=== PATIENT | male | born 1980 | race American Indian/Alaskan Native ===

== ENCOUNTER 2020-10-02 22:53 | Inpatient (IN) | payer OTHER ==
[2020-10-02] MEDS ORDERED: ACETAMINOPHEN 500 MG TAB PO ONE (23:44)
[2020-10-02] MEDS ORDERED: SODIUM CHLORIDE 0.9% 1000 ML 1,000 ML IV ONE (23:45)
[2020-10-02] MEDS ORDERED: dexAMETHasone 20 MG/5 ML VIAL IV ONE (23:46)
[2020-10-02] MEDS ORDERED: ALBUTEROL 2.5 MG/3 ML NEBU IH ONE (23:46)
[2020-10-02] MEDS ORDERED: IPRATROPIUM 0.02% NEBU 2.5 ML IH ONE (23:46)
--- NOTE | 2020-10-02 23:54 | XRay Report ---
CHEST 1 VIEW 10/02/2020 10:45 PM INDICATION / CLINICAL INFORMATION: cough. COMPARISON: None available. FINDINGS: SUPPORT DEVICES: None. HEART / MEDIASTINUM: No significant abnormality. LUNGS / PLEURA: Moderate multifocal bilateral airspace disease No pneumothorax. ADDITIONAL FINDINGS: No significant additional findings. IMPRESSION: 1. Bilateral pneumonia Signer Name: Hosea Koenig MD Signed: 10/02/2020 11:50 PM Workstation Name: [id number]
[2020-10-03 00:03] LABS: Hematocrit 46.9 % (35.5-45.6); Hemoglobin 16.1 gm/dl (11.8-15.2); Mean Corpuscular HGB Conc 34 % (32-34); Mean Corpuscular Volume 90 fl (84-94); Platelet Count 254 K/mm3 (140-440); Red Cell Distribution Width 14.6 % (13.2-15.2)
[2020-10-03 00:20] LABS: Alanine Aminotransferase 36 units/L (7-56); Albumin 4.3 g/dL (3.9-5); BUN/Creatinine Ratio 8; Blood Urea Nitrogen 10 mg/dL (9-20); Calcium 8.8 mg/dL (8.4-10.2); Hemolysis Index 3
[2020-10-03] MEDS ORDERED: cefTRIAXone/NS 1 GM/50 ML 1 GM/50 ML BAG IV ONE (00:30)
[2020-10-03] MEDS ORDERED: AZITHROMYCIN/NS 500 MG/250 ML 500 MG/250 ML BAG IV ONE (00:30)
[2020-10-03] MEDS ORDERED: SODIUM CHLORIDE 0.9% 1000 ML 1,000 ML IV ONE (00:31)
--- NOTE | 2020-10-03 00:32 | Emergency Department Report ---
<RAISA CONWAYSHAHEED Allan - Last Filed: 10/03/20 00:52> ED Shortness of Breath HPI - General Chief Complaint: Dyspnea/Respdistress Stated Complaint: MILTON - Related Data Allergies Allergy/AdvReac Type Severity Reaction Status Date / Time No Known Allergies Allergy Unverified 10/02/20 23:18 ED Course - Reevaluation(s) Reevaluation #1: I reviewed the findings and management of this patient in real-time and I have personally seen and examined this patient and participated in the decision making for this patient with the midlevel. Patient is a 39-year-old male who presents emergency room with shortness of breath, cough fever. Patient found to be hypoxic. Patient had chest x-ray which shows bilateral pneumonia. Patient admitted to the hospitalist service. Patient is hypoxic on a nonrebreather. Patient then converted to BiPAP. I examined the patient. Patient's found to have increased work of breathing, retractions, shortness of breath, tachypnea. Normal S1 and S2 on CV exam. Abdominal exam is negative. Patient is alert and oriented x4. Patient agrees with plan of care. I discussed all results with patient. I discussed plan of care with patient. Patient agrees with plan of care and admission. Patient to be admitted to the hospitalist service. 10/03/20 00:52 - Consultations Consultation #1: Hospitalist consulted for admission. Hospitalist to admit patient. 10/03/20 00:54 ED Medical Decision Making - Lab Data Result diagrams: 10/02/20 23:36 10/02/20 23:36 - Radiology Data Radiology results: report reviewed, image reviewed interpreted by me: Chest x-ray: no pneumothorax, no foreign body, no osseous findings, bilateral pneumonia CHEST 1 VIEW 10/02/2020 10:45 PM INDICATION / CLINICAL INFORMATION: cough. COMPARISON: None available. FINDINGS: SUPPORT DEVICES: None. HEART / MEDIASTINUM: No significant abnormality. LUNGS / PLEURA: Moderate multifocal bilateral airspace disease No pneumothorax. ADDITIONAL FINDINGS: No significant additional findings. IMPRESSION: 1. Bilateral pneumonia - Medical Decision Making Critical care time documented due to the multiple reassessments, prolonged time at the bedside, interpretation of diagnostics and labs. - Differential Diagnosis Covid, PUI, pneumonia, hypoxia, Sob, respiratory failure Critical Care Time: Yes Critical care time in (mins) excluding proc time.: 35 Critical Care Time: 35 minutes ED Disposition Clinical Impression: SOB (shortness of breath), Person under investigation for COVID-19 Respiratory failure Qualifiers: Chronicity: acute Respiratory failure complication: hypoxia Qualified Code(s): J96.01 - Acute respiratory failure with hypoxia Pneumonia Qualifiers: Pneumonia type: due to unspecified organism Laterality: bilateral Lung location: unspecified part of lung Qualified Code(s): J18.9 - Pneumonia, unspecified organism Fever Qualifiers: Fever type: unspecified Qualified Code(s): R50.9 - Fever, unspecified Disposition: DC-09 OP ADMIT IP TO THIS HOSP Is pt being admited?: Yes Does the pt Need Aspirin: No Condition: Stable Instructions: Bacterial Pneumonia (ED) Time of Disposition: 00:55 <TANG BENITEZ - Last Filed: 10/03/20 01:10> ED Shortness of Breath HPI - General Source: patient Mode of arrival: Ambulatory Limitations: No Limitations - History of Present Illness Initial Comments: Patient is a 39-year-old -Ni[place] male with a history of chronic heavy tobacco abuse, asthma, hypertension and obesity who presents to the ED with complaint of acute onset persistent nasal and sinus congestion, persistent dry cough with wheezing, shortness of breath and chest tightness for the last 1 week, worse in the last 2 days. Patient admits to smoking up to 1 pack a day or more of cigarettes. Patient states that although he is asthmatic, he has not used any bronchodilators in the last 3 years. Patient also complains of diffuse body aches and pains, lack of appetite and generalized weakness, fever and chills. Patient denies dizziness, syncope, abdominal pain, nausea, vomiting, diarrhea, dysuria, urinary frequency and urgency, sore throat, testicular pain or hematuria. MD Complaint: shortness of breath, cough, chest pain -: Sudden, week(s) (1) Radiation: right arm, left arm Severity: severe Pain Scale: 8 Quality: aching, sharp Consistency: constant Improves With: nothing Worsens With: nothing Known History Of: asthma Context: recent URI, medication noncompliance, other (Heavy tobacco abuse) Associated Symptoms: chest pain, fever, cough, diaphoresis Treatments Prior to Arrival: none - Related Data Home Oxygen Therapy: No ED Review of Systems ROS: Stated complaint: MILTON Other details as noted in HPI Constitutional: chills, fever, malaise Eyes: denies: eye pain, eye discharge, vision change ENT: congestion Respiratory: cough, shortness of breath, wheezing Cardiovascular: chest pain (chest tightness). denies: palpitations Endocrine: no symptoms reported Gastrointestinal: denies: abdominal pain, nausea, diarrhea Genitourinary: denies: urgency, dysuria Musculoskeletal: arthralgia, myalgia. denies: back pain, joint swelling Skin: denies: rash, lesions Neurological: headache. denies: weakness, paresthesias Psychiatric: denies: anxiety, depression Hematological/Lymphatic: denies: easy bleeding, easy bruising ED Past Medical Hx - Past Medical History Previous Medical History?: Yes Hx Hypertension: Yes Hx Asthma: Yes Additional medical history: Obesity - Surgical History Past Surgical History?: No Hx Pacemaker: No - Social History Smoking Status: Current Every Day Smoker Substance Use Type: None ED Physical Exam - General Limitations: No Limitations General appearance: alert, in no apparent distress, anxious - Head Head exam: Present: atraumatic, normocephalic, normal inspection - Eye Eye exam: Present: normal appearance, PERRL, EOMI. Absent: scleral icterus, conjunctival injection, nystagmus, periorbital swelling, periorbital tenderness - ENT ENT exam: Present: normal orophraynx, mucous membranes moist, TM's normal bilaterally, normal external ear exam, other (Grossly congested nasal passages) - Neck Neck exam: Present: normal inspection, full ROM - Respiratory Respiratory exam: Present: respiratory distress, wheezes (Diffuse coarse wheezes throughout with bilateral rhonchi, and use of accessory muscles), rales, rhonchi, accessory muscle use. Absent: chest wall tenderness, decreased breath sounds - Cardiovascular Cardiovascular Exam: Present: normal rhythm, tachycardia, normal heart sounds. Absent: systolic murmur, diastolic murmur, rubs, gallop - GI/Abdominal GI/Abdominal exam: Present: soft, normal bowel sounds. Absent: tenderness, guarding, rebound, hyperactive bowel sounds, hypoactive bowel sounds, or ganomegaly - Extremities Exam Extremities exam: Present: normal inspection, full ROM, normal capillary refill - Back Exam Back exam: Present: normal inspection, full ROM. Absent: CVA tenderness (L), muscle spasm, paraspinal tenderness, vertebral tenderness - Neurological Exam Neurological exam: Present: alert, oriented X3, CN II-XII intact, normal gait, reflexes normal - Psychiatric Psychiatric exam: Present: normal affect, normal mood - Skin Skin exam: Present: warm, dry, intact, normal color. Absent: rash ED Course Vital Signs 10/02/20 23:20 Temperature 100.1 F H Pulse Rate 101 H Respiratory 20 Rate Blood Pressure 153/93 [Left] O2 Sat by Pulse 88 Oximetry ED Medical Decision Making - Lab Data Result diagrams: 10/02/20 23:36 10/02/20 23:36 - Medical Decision Making This is a 39-year-old -[place] male with a history of chronic heavy tobacco abuse, asthma, hypertension and obesity who presents to the ED with complaint of acute onset persistent nasal and sinus congestion, persistent dry cough with wheezing, shortness of breath and chest tightness for the last 1 week, worse in the last 2 days. Patient admits to smoking up to 1 pack a day or more of cigarettes. Patient states that although he is asthmatic, he has not used any bronchodilators in the last 3 years. Patient also complains of diffuse body aches and pains, lack of appetite and generalized weakness, fever and chills. In the ED, patient is alert and oriented x3 and is in respiratory distress with oxygen saturation of 88% in room air, febrile and tachycardic in triage. Patient was treated in the ED with albuterol 7.5 mg and ipratropium 1 mg, Decadron 10 mg IV x1, also placed on nonrebreather oxygen, Tylenol, normal saline 2 L IV x1. Chest x-ray shows bilateral pneumonia. Lab test results were reviewed and showed acute leukocytosis of 20,400 and elevated AST of 67. The rest of the lab test results are nonactionable. Blood cultures were collected, and thereafter patient was started on antibiotics Rocephin 1 g IV x1 and azithromycin 500 mg IV x1. Patient's case was discussed with the ED attending physician Dr. Roblero who also evaluated the patient and agreed with the plan of care. Dr. Roblero discussed the patient's case with the hospitalist physician on-call Dr. Walter who admitted the patient to the hospital for further evaluation. Critical care attestation.: If time is entered above; I have spent that time in minutes in the direct care of this critically ill patient, excluding procedure time.
[2020-10-03 01:00] LABS: Band Neutrophils # (Manual) 2.6 K/mm3; Total Cells Counted 100
[2020-10-03 01:02] LABS: Giant Platelets Rare
[2020-10-03 01:18] LABS: Ovalocytes Rare; Platelet Estimate Consistent w Auto
[2020-10-03 01:22] LABS: C-Reactive Protein 5.6 mg/dL (0.00-1.30)
--- NOTE | 2020-10-03 01:29 | History and Physical Report ---
History of Present Illness Date of examination: 10/03/20 Date of admission: 10/03/20 00:51 Chief complaint: Shortness of breath History of present illness: Patient is a 39-year-old -[place]onegas[place] male with a history of chronic heavy tobacco abuse, asthma, hypertension and obesity who presents to the ED with complaint of acute onset persistent nasal and sinus congestion, persistent dry cough with wheezing, shortness of breath and chest tightness for the last 1 w [place], worse in the last 2 days. Patient admits to smoking up to 1 pack a day or more of cigarettes. Patient states that although he is asthmatic, he has not used any bronchodilators in the last 3 years. Patient also complains of diffuse body aches and pains, lack of appetite and generalized weakness, fever and chills. Patient denies dizziness, syncope, abdominal pain, nausea, vomiting, diarrhea, dysuria, urinary frequency and urgency, sore throat, testicular pain or hematuria. ED work-up shows WBC 28.4, hemoglobin 16.1, platelet 254 D-dimer 963.03 Sodium 138 potassium 4.3, creatinine 1.2, glucose 116, calcium 8.8, troponin negative Chest x-ray shows bilateral pneumonia. Patient seen in ED at bedside. Patient reported history of shortness of breath and was checked for Covid infection but no results was given to him. Patient is on oxygen by facemask oxygen saturation 9394. Patient reports shortness of breath that is ongoing not relieved by any remedies. Reviewed lab, medication r ecord, and vital signs. D-dimer is elevated and CT of the chest to rule out PE ordered. Past History Past Medical History: hypertension Past Surgical History: No surgical history Social history: no significant social history Family history: hypertension Medications and Allergies Allergies Allergy/AdvReac Type Severity Reaction Status Date / Time No Known Allergies Allergy Unverified 10/02/20 23:18 Active Meds: Active Medications Azithromycin (Zithromax/Ns) 500 mg in 250 mls @ 250 mls/hr IV ONCE ONE; Protocol Stop: 10/03/20 01:29 Sodium Chloride (Nacl 0.9% 1000 Ml) 1,000 mls @ 999 mls/hr IV BOLUS ONE Stop: 10/03/20 01:31 Review of Systems Constitutional: fever, chills, weakness, malaise Ears, nose, mouth and throat: no epistaxis Cardiovascular: high blood pressure, no chest pain Respiratory: shortness of breath Gastrointestinal: no melena Rectal: no itching Musculoskeletal: no neck stiffness Integumentary: no rash, no pruritis Neurological: head injury Psychiatric: anxiety Endocrine: high blood sugars Hematologic/Lymphatic: no easy bruising, no easy bleeding Allergic/Immunologic: no urticaria Exam - Constitutional Vitals: Temp Pulse Resp BP Pulse Ox 100.1 F H 101 H 20 153/93 88 10/02/20 23:20 10/02/20 23:20 10/02/20 23:20 10/02/20 23:20 10/02/20 23:20 General appearance: Present: severe distress, obese - EENT Eyes: Present: PERRL ENT: hearing intact, clear oral mucosa - Neck Neck: Present: supple, normal ROM - Respiratory Respiratory effort: normal Respiratory: bilateral: diminished - Cardiovascular Heart rate: 101 Heart Sounds: Present: S1 & S2. Absent: rub, click - Extremities Extremities: pulses symmetrical, No edema Peripheral Pulses: within normal limits - Abdominal General gastrointestinal: Present: soft, non-tender, non-distended, normal bowel sounds Male genitourinary: Present: normal - Integumentary Integumentary: Present: clear, warm, dry - Musculoskeletal Musculoskeletal: gait normal, strength equal bilaterally - Psychiatric Psychiatric: appropriate mood/affect, intact judgment & insight, cooperative - Neurologic Neurologic: CNII-XII intact, moves all extremities - Allied Health Allied health notes reviewed: nursing HEART Score - HEART Score Troponin: Troponin T < 0.010 ng/mL (0.00-0.029) 10/02/20 23:55 Results - Labs CBC & Chem 7: 10/02/20 23:36 10/02/20 23:55 Labs: Abnormal lab results 10/02/20 10/02/20 10/02/20 Range/Units 23:36 23:36 23:55 WBC 28.4 H (4.5-11.0) K/mm3 RBC 5.20 H (3.65-5.03) M/mm3 Hgb 16.1 H (11.8-15.2) gm/dl Hct 46.9 H (35.5-45.6) % Seg Neuts % (Manual) 82.0 H (40.0-70.0) % Lymphocytes % (Manual) 6.0 L (13.4-35.0) % Seg Neutrophils # Man 23.3 H (1.8-7.7) K/mm3 Monocytes # (Manual) 0.9 H (0.0-0.8) K/mm3 D-Dimer 963.03 H (0-234) ng/mlDDU Carbon Dioxide 21 L (22-30) mmol/L Glucose 116 H (75-100) mg/dL Total Bilirubin 1.70 H (0.1-1.2) mg/dL AST 67 H (5-40) units/L Lactate Dehydrogenase (91-180) units/L C-Reactive Protein (0.00-1.30) mg/dL 10/02/20 Range/Units 23:55 WBC (4.5-11.0) K/mm3 RBC (3.65-5.03) M/mm3 Hgb (11.8-15.2) gm/dl Hct (35.5-45.6) % Seg Neuts % (Manual) (40.0-70.0) % Lymphocytes % (Manual) (13.4-35.0) % Seg Neutrophils # Man (1.8-7.7) K/mm3 Monocytes # (Manual) (0.0-0.8) K/mm3 D-Dimer (0-234) ng/mlDDU Carbon Dioxide (22-30) mmol/L Glucose 105 H (75-100) mg/dL Total Bilirubin (0.1-1.2) mg/dL AST (5-40) units/L Lactate Dehydrogenase 554 H (91-180) units/L C-Reactive Protein 5.60 H (0.00-1.30) mg/dL Assessment and Plan - Patient Problems (1) Person under investigation for COVID-19 Current Visit: Yes Status: Acute Plan to address problem: Covid test ordered result pending D-dimer and other inflammatory markers elevated Advised on use of incentive spirometer and prone position Bronchodilator and supplemental oxygen. (2) Pneumonia Current Visit: Yes Status: Acute Qualifiers: Pneumonia type: due to unspecified organism Laterality: bilateral Lung location: unspecified part of lung Qualified Code(s): J18.9 - Pneumonia, unspecified organism Plan to address problem: Chest x-ray positive for bilateral pneumonia Antibiotic with Rocephin and azithromycin Blood culture follow-up with results Easter Bunny consulted Continue bronchodilator and oxygen supplements ABG as needed (3) Acute respiratory failure with hypoxia Current Visit: Yes Status: Acute Plan to address problem: Continue oxygen supplements. BiPAP if needed and bronchodilator as needed Easter Bunny consulted (4) Elevated d-dimer Current Visit: Yes Status: Acute Plan to address problem: CTA of the chest r/o PE Bilateral leg US (5) Fever Current Visit: Yes Status: Acute Qualifiers: Fever type: unspecified Qualified Code(s): R50.9 - Fever, unspecified Plan to address problem: Leucocytosis Continue antibiotic PRN tylenol (6) Sepsis Current Visit: Yes Status: Acute Plan to address problem: Possible 2/2 to bacterial/viral PNA leucocytosis and lactic acidosis Continue Iv hydration Continue antibiotic Monitor WBC and lactic acids levels ID consulted-blood culture ordered. (7) DVT prophylaxis Current Visit: Yes Status: Acute Plan to address problem: lovenox
[2020-10-03] MEDS ORDERED: SENNOSIDES 8.6 MG TAB PO PRN (01:56)
[2020-10-03] MEDS ORDERED: ONDANSETRON 4 MG/2 ML INJ IV PRN (01:56)
[2020-10-03] MEDS ORDERED: ALUM-MAG HYDROXIDE-SIMETHICONE 200-200-20MG/5ML ORAL LIQD 30 ML PO PRN (01:56)
[2020-10-03] MEDS ORDERED: IPRATROPIUM/ALBUTEROL SULFATE 3 ML AMPUL.NEB IH ONE ×2 (02:30→02:31)
--- NOTE | 2020-10-03 03:19 | Cat Scan Report ---
CTA CHEST WITH IV CONTRAST INDICATION: Shortness of breath. TECHNIQUE: Axial CT images were obtained through the chest after injection of 100 cc IV contrast. 3 plane MIP re constructions were produced. All CT scans at this location are performed using CT dose reduction for ALARA by means of automated exposure control. COMPARISON: None available. FINDINGS: PULMONARY ARTERIES: No pulmonary emboli. THORACIC AORTA: No acute abnormality. HEART: Normal. CORONARY ARTERIES: No significant calcification. PLEURA: No pleural effusion. No pneumothorax. LYMPH NODES: No significant adenopathy. LUNGS: Extensive patchy bilateral airspace consolidation ADDITIONAL FINDINGS: None. UPPER ABDOMEN: 3.4 cm right and 4.2 cm left hypodense adrenal nodules both diagnostic for adenomas SKELETAL STRUCTURES: No significant osseous abnormality. IMPRESSION: 1. No CT evidence for pulmonary embolism. 2. Severe bilateral pneumonia 3. Bilateral hypodense adrenal nodules are diagnostic for adenomas. Signer Name: Hosea Koenig MD Signed: 10/03/2020 3:14 AM Workstation Name: [id number]
[2020-10-03] MEDS: SODIUM CHLORIDE 0.9% 1000 ML 1,000 ML IV SCH ×2 (07:23→21:30)
[2020-10-03 08:30] LABS: Bilirubin,Urine NEG (Negative); Blood,Urine NEG (Negative); Color,Urine Yellow (Yellow); Mucus,Urine FEW /HPF; Protein,Urine <15 mg/dL mg/dL (Negative); Urobilinogen,Urine < 2.0 mg/dL (<2.0)
--- NOTE | 2020-10-03 10:39 | Consultation ---
History of Present Illness Reason for consult: dyspnea, asthma, pneumonia History of present illness: This is a 39 yo AAm w hx of asthma who comes in with body aches and sob. In the er he was noted to have bilateral pneumonia. He is presently on bipap. He is awake and reponsive. He has a hx of asthma for many years and smoke about 1 ppd. He has never been intubated and he is reportedly not on any asthma meds Past History Past Medical History: hypertension, other (asthma) Past Surgical History: No surgical history Social history: no significant social history, smoking Family history: hypertension Medications and Allergies Allergies Allergy/AdvReac Type Severity Reaction Status Date / Time No Known Allergies Allergy Unverified 10/02/20 23:18 Active Meds: Active Medications Acetaminophen (Acetaminophen 325 Mg Tab) 650 mg PO Q4H PRN PRN Reason: Fever >101 Al Hydrox/Mg Hydrox/Simethicone (Alum-Mag Hydroxide-Simethicone 043-214-63mq/5ml Oral Liqd 30 Ml) 15 ml PO Q4H PRN PRN Reason: Indigestion Albuterol (Albuterol 2.5 Mg/3 Ml Nebu) 2.5 mg IH Q4HRT PRN PRN Reason: Shortness Of Breath Enoxaparin Sodium (Enoxaparin 40 Mg/0.4 Ml Inj) 40 mg SUB-Q DAILY DEBORAH; Protocol Hydralazine HCl (Hydralazine 20 Mg/1 Ml Inj) 5 mg IV Q4H PRN PRN Reason: Hypertension Ceftriaxone Sodium (Rocephin/Ns 1 Gm/50 Ml) 1 gm in 50 mls @ 100 mls/hr IV Q24HR DEBORAH; Protocol Azithromycin (Zithromax/Ns) 500 mg in 250 mls @ 250 mls/hr IV Q24HR DEBORAH Sodium Chloride (Nacl 0.9% 1000 Ml) 1,000 mls @ 75 mls/hr IV DIRECT DEBORAH Last Admin: 10/03/20 07:23 Dose: 75 mls/hr Documented by: Ondansetron HCl (Ondansetron 4 Mg/2 Ml Inj) 4 mg IV Q4H PRN PRN Reason: Nausea And Vomiting Pneumococcal Polyvalent Vaccine (Pneumococcal 23 Valent 0.5 Ml Vial) 0.5 ml IM .ONCE ONE Stop: 10/03/20 11:01 Senna (Sennosides 8.6 Mg Tab) 8.6 mg PO Q12H PRN PRN Reason: Laxative Effect Tramadol HCl (Tramadol 50 Mg Tab) 50 mg PO Q4H PRN PRN Reason: Pain, Moderate (4-6) Trazodone HCl (Trazodone 50 Mg Tab) 50 mg PO QHS PRN PRN Reason: Insomnia Review of Systems Constitutional: weakness Respiratory: shortness of breath, other (asthma) Physical Examination Vital signs: Vital Signs Temp Pulse Resp BP Pulse Ox 100.1 F H 101 H 20 153/93 88 10/02/20 23:20 10/02/20 23:20 10/02/20 23:20 10/02/20 23:20 10/02/20 23:20 General appearance: alert, other (on bipap) ENT: oropharynx moist Neck: supple Effort: normal Ascultation: Bilateral: rhonchi Cardiovascular: regular rate and rhythm Gastrointestinal: normoactive bowel sounds, soft, non-tender, non-distended Integumentary: normal Extremities: no cyanosis Musculoskeletal: no deformities Gait: other (in icu on bipap) Results - Laboratory Findings CBC and BMP: 10/02/20 23:36 10/02/20 23:55 PT/INR, D-dimer D-Dimer 963.03 ng/mlDDU (0-234) H 10/02/20 23:55 Abnormal lab findings: Abnormal Labs 10/02/20 10/02/20 10/02/20 23:36 23:36 23:55 WBC 28.4 H RBC 5.20 H Hgb 16.1 H Hct 46.9 H Seg Neuts % (Manual) 82.0 H Lymphocytes % (Manual) 6.0 L Seg Neutrophils # Man 23.3 H Monocytes # (Manual) 0.9 H D-Dimer 963.03 H Carbon Dioxide 21 L Glucose 116 H Lactic Acid Ferritin Total Bilirubin 1.70 H AST 67 H Lactate Dehydrogenase C-Reactive Protein Ur Specific [place] 10/02/20 10/02/20 10/03/20 23:55 23:55 00:52 WBC RBC Hgb Hct Seg Neuts % (Manual) Lymphocytes % (Manual) Seg Neutrophils # Man Monocytes # (Manual) D-Dimer Carbon Dioxide Glucose 105 H Lactic Acid 3.10 H* Ferritin 349.5 H Total Bilirubin AST Lactate Dehydrogenase 554 H C-Reactive Protein 5.60 H Ur Specific [place] 10/03/20 07:50 WBC RBC Hgb Hct Seg Neuts % (Manual) Lymphocytes % (Manual) Seg Neutrophils # Man Monocytes # (Manual) D-Dimer Carbon Dioxide Glucose Lactic Acid Ferritin Total Bilirubin AST Lactate Dehydrogenase C-Reactive Protein Ur Specific [place] 1.034 H - Diagnostic Findings Chest x-ray: report reviewed, image reviewed (bilat alveolar infiltrates) CT scan - chest: report reviewed, image reviewed (bilat pneumonia) Assessment and Plan - Patient Problems (1) Acute respiratory failure with hypoxia Current Visit: Yes Status: Acute (2) Fever Current Visit: Yes Status: Acute Qualifiers: Fever type: unspecified Qualified Code(s): R50.9 - Fever, unspecified (3) Person under investigation for COVID-19 Current Visit: Yes Status: Acute (4) Pneumonia Current Visit: Yes Status: Acute Qualifiers: Pneumonia type: due to unspecified organism Laterality: bilateral Lung location: unspecified part of lung Qualified Code(s): J18.9 - Pneumonia, unspecified organism (5) Respiratory failure Current Visit: Yes Status: Acute Qualifiers: Chronicity: acute Respiratory failure complication: hypoxia Qualified Code(s): J96.01 - Acute respiratory failure with hypoxia (6) SOB (shortness of breath) Current Visit: Yes Status: Acute (7) Sepsis Current Visit: Yes Status: Acute
[2020-10-03] MEDS: cefTRIAXone/NS 1 GM/50 ML 1 GM/50 ML BAG IV SCH (10:45)
[2020-10-03] MEDS: ENOXAPARIN 40 MG/0.4 ML INJ SUB-Q SCH (10:45)
[2020-10-03] MEDS ORDERED: PNEUMOCOCCAL 23 Valent 0.5 ML VIAL IM ONE (11:00)
--- NOTE | 2020-10-03 11:42 | Progress Note ---
Assessment and Plan Assessment and plan: Acute hypoxic respiratory failure Bilateral pneumonia. Follow-up COVID-19 testing Acute asthma exacerbation Elevated D-dimer. CTA negative for PE Hypertension Tobacco abuse 10/03/2020. Continue IV antibiotics for now and follow-up procalcitonin. Add steroids for asthma exacerbation. Continue bronchodilators. Continue BiPAP / and FiO2 100%. Pulmonary and ID consultations pending. History Interval history: No new issues overnight. Hospitalist Physical - Constitutional Vitals: Temp Pulse Resp BP Pulse Ox 98.4 F 84 36 H 163/106 98 10/03/20 08:00 10/03/20 09:07 10/03/20 09:07 10/03/20 09:07 10/03/20 09:07 General appearance: Present: severe distress, obese - EENT Eyes: Present: PERRL, EOM intact ENT: hearing intact, clear oral mucosa, dentition normal - Neck Neck: Present: supple, normal ROM - Respiratory Respiratory effort: normal Respiratory: bilateral: CTA - Cardiovascular Rhythm: regular Heart Sounds: Present: S1 & S2. Absent: gallop, rub - Extremities Extremities: no ischemia, No edema, Full ROM - Abdominal General gastrointestinal: soft, non-tender, non-distended, normal bowel sounds - Integumentary Integumentary: Present: clear, warm, dry - Neurologic Neurologic: CNII-XII intact, moves all extremities HEART Score - HEART Score Troponin: Troponin T < 0.010 ng/mL (0.00-0.029) 10/02/20 23:55 Results - Labs CBC & Chem 7: 10/02/20 23:36 10/02/20 23:55 Labs: Laboratory Last Values WBC 28.4 K/mm3 (4.5-11.0) H 10/02/20 23:36 RBC 5.20 M/mm3 (3.65-5.03) H 10/02/20 23:36 Hgb 16.1 gm/dl (11.8-15.2) H 10/02/20 23:36 Hct 46.9 % (35.5-45.6) H 10/02/20 23:36 MCV 90 fl (84-94) 10/02/20 23:36 MCH 31 pg (28-32) 10/02/20 23:36 MCHC 34 % (32-34) 10/02/20 23:36 RDW 14.6 % (13.2-15.2) 10/02/20 23:36 Plt Count 254 K/mm3 (140-440) 10/02/20 23:36 Add Manual Diff Complete 10/02/20 23:36 Total Counted 100 10/02/20 23:36 Seg Neutrophils % [employer] 10/02/20 23:36 Seg Neuts % (Manual) 82.0 % (40.0-70.0) H 10/02/20 23:36 Band Neutrophils % 9.0 % 10/02/20 23:36 Lymphocytes % (Manual) 6.0 % (13.4-35.0) L 10/02/20 23:36 Monocytes % (Manual) 3.0 % (0.0-7.3) 10/02/20 23:36 Nucleated RBC % Not Reportable 10/02/20 23:36 Seg Neutrophils # Man 23.3 K/mm3 (1.8-7.7) H 10/02/20 23:36 Band Neutrophils # 2.6 K/mm3 10/02/20 23:36 Lymphocytes # (Manual) 1.7 K/mm3 (1.2-5.4) 10/02/20 23:36 Abs React Lymphs (Man) 0.0 K/mm3 10/02/20 23:36 Monocytes # (Manual) 0.9 K/mm3 (0.0-0.8) H 10/02/20 23:36 Eosinophils # (Manual) 0.0 K/mm3 (0.0-0.4) 10/02/20 23:36 Basophils # (Manual) 0.0 K/mm3 (0.0-0.1) 10/02/20 23:36 Metamyelocytes # 0.0 K/mm3 10/02/20 23:36 Myelocytes # 0.0 K/mm3 10/02/20 23:36 Promyelocytes # 0.0 K/mm3 10/02/20 23:36 Blast Cells # 0.0 K/mm3 10/02/20 23:36 WBC Morphology Not Reportable 10/02/20 23:36 Hypersegmented Neuts Not Reportable 10/02/20 23:36 Hyposegmented Neuts Not Reportable 10/02/20 23:36 Hypogranular Neuts Not Reportable 10/02/20 23:36 Smudge Cells Not Reportable 10/02/20 23:36 Toxic Granulation Not Reportable 10/02/20 23:36 Toxic Vacuolation Not Reportable 10/02/20 23:36 Dohle Bodies Not Reportable 10/02/20 23:36 Pelger-Huet Anomaly Not Reportable 10/02/20 23:36 [place] Rods Not Reportable 10/02/20 23:36 Platelet Estimate Consistent w auto 10/02/20 23:36 Clumped Platelets Not Reportable 10/02/20 23:36 Plt Clumps, EDTA Not Reportable 10/02/20 23:36 Large Platelets Not Reportable 10/02/20 23:36 Giant Platelets Rare 10/02/20 23:36 Platelet Satelliting Not Reportable 10/02/20 23:36 Plt Morphology Comment Not Reportable 10/02/20 23:36 RBC Morphology Not Reportable 10/02/20 23:36 Dimorphic RBCs Not Reportable 10/02/20 23:36 Polychromasia Rare 10/02/20 23:36 Hypochromasia Not Reportable 10/02/20 23:36 Poikilocytosis Not Reportable 10/02/20 23:36 Anisocytosis Not Reportable 10/02/20 23:36 Microcytosis Not Reportable 10/02/20 23:36 Macrocytosis Not Reportable 10/02/20 23:36 Spherocytes Not Reportable 10/02/20 23:36 Pappenheimer Bodies Not Reportable 10/02/20 23:36 Sickle Cells Not Reportable 10/02/20 23:36 Target Cells Not Reportable 10/02/20 23:36 Tear Drop Cells Not Reportable 10/02/20 23:36 Ovalocytes Rare 10/02/20 23:36 Helmet Cells Not Reportable 10/02/20 23:36 [place] Bodies Not Reportable 10/02/20 23:36 Azalea Rings Not Reportable 10/02/20 23:36 [place] Cells Not Reportable 10/02/20 23:36 Bite Cells Not Reportable 10/02/20 23:36 Crenated Cell Not Reportable 10/02/20 23:36 Elliptocytes Not Reportable 10/02/20 23:36 Acanthocytes (Spur) Not Reportable 10/02/20 23:36 Rouleaux Not Reportable 10/02/20 23:36 Hemoglobin C Crystals Not Reportable 10/02/20 23:36 Schistocytes Not Reportable 10/02/20 23:36 Malaria parasites Not Reportable 10/02/20 23:36 [place] Bodies Not Reportable 10/02/20 23:36 Hem Pathologist Commnt No 10/02/20 23:36 D-Dimer 963.03 ng/mlDDU (0-234) H 10/02/20 23:55 Sodium 138 mmol/L (137-145) 10/02/20 23:36 Potassium 4.3 mmol/L (3.6-5.0) 10/02/20 23:36 Chloride 102.6 mmol/L (98-107) 10/02/20 23:36 Carbon Dioxide 21 mmol/L (22-30) L 10/02/20 23:36 Anion Gap 19 mmol/L 10/02/20 23:36 BUN 10 mg/dL (9-20) 10/02/20 23:36 Creatinine 1.2 mg/dL (0.8-1.3) 10/02/20 23:36 Estimated GFR > 60 ml/min 10/02/20 23:36 BUN/Creatinine Ratio 8 % 10/02/20 23:36 Glucose 105 mg/dL (75-100) H 10/02/20 23:55 Lactic Acid 1.40 mmol/L (0.7-2.0) 10/03/20 05:34 Calcium 8.8 mg/dL (8.4-10.2) 10/02/20 23:36 Ferritin 349.5 ng/mL (30.0-300.0) H 10/02/20 23:55 Total Bilirubin 1.70 mg/dL (0.1-1.2) H 10/02/20 23:36 AST 67 units/L (5-40) H 10/02/20 23:36 ALT 36 units/L (7-56) 10/02/20 23:36 Alkaline Phosphatase 66 units/L (35-129) 10/02/20 23:36 Lactate Dehydrogenase 554 units/L (91-180) H 10/02/20 23:55 Troponin T < 0.010 ng/mL (0.00-0.029) 10/02/20 23:55 C-Reactive Protein 5.60 mg/dL (0.00-1.30) H 10/02/20 23:55 Total Protein 7.3 g/dL (6.3-8.2) 10/02/20 23:36 Albumin 4.3 g/dL (3.9-5) 10/02/20 23:36 Albumin/Globulin Ratio 1.4 % 10/02/20 23:36 Procalcitonin 1.14 ng/mL (<0.15) 10/02/20 23:55 Urine Color Yellow (Yellow) 10/03/20 07:50 Urine Turbidity Clear (Clear) 10/03/20 07:50 Urine pH 5.0 (5.0-7.0) 10/03/20 07:50 Ur Specific [place] 1.034 (1.003-1.030) H 10/03/20 07:50 Urine Protein <15 mg/dl mg/dL (Negative) 10/03/20 07:50 Urine Glucose (UA) Neg mg/dL (Negative) 10/03/20 07:50 Urine Ketones Tr mg/dL (Negative) 10/03/20 07:50 Urine Blood Neg (Negative) 10/03/20 07:50 Urine Nitrite Neg (Negative) 10/03/20 07:50 Urine Bilirubin Neg (Negative) 10/03/20 07:50 Urine Urobilinogen < 2.0 mg/dL (<2.0) 10/03/20 07:50 Ur Leukocyte Esterase Neg (Negative) 10/03/20 07:50 Urine WBC (Auto) 0.0 /HPF (0.0-6.0) 10/03/20 07:50 Urine RBC (Auto) 1.0 /HPF (0.0-6.0) 10/03/20 07:50 Urine Mucus Few /HPF 10/03/20 07:50 Microbiology: Microbiology 10/02/20 23:55 Peripheral/Venous Blood Culture - Preliminary Culture in Progress 10/03/20 00:12 Peripheral/Venous Blood Culture - Preliminary Culture in Progress Ruiz/IV: Voiding Method Urinal Active Medications - Current Medications Current Medications: Generic Name Dose Route Start Last Admin Trade Name Freq PRN Reason Stop Dose Admin Acetaminophen 650 mg 10/03/20 02:15 Acetaminophen 325 Mg Tab PO Q4H PRN Fever >101 Al Hydrox/Mg Hydrox/Simethicone 15 ml 10/03/20 01:56 Alum-Mag Hydroxide-Simethicone [id number]/5ml Oral Liqd 30 Ml PO Q4H PRN Indigestion Albuterol 2.5 mg 10/03/20 01:45 Albuterol 2.5 Mg/3 Ml Nebu IH Q4HRT PRN Shortness Of Breath Arformoterol Tartrate 15 mcg 10/03/20 11:00 Arformoterol 15 Mcg/2 Ml Nebu IH Q12HRT DEBORAH Budesonide 0.25 mg 10/03/20 11:00 Budesonide 0.25 Mg/2 Ml Nebu IH Q12HRT DEBORAH Enoxaparin Sodium 40 mg 10/03/20 10:00 10/03/20 10:45 Enoxaparin 40 Mg/0.4 Ml Inj SUB-Q 40 mg DAILY DEBORAH Administration Protocol Hydralazine HCl 5 mg 10/03/20 01:47 Hydralazine 20 Mg/1 Ml Inj IV Q4H PRN Hypertension Ceftriaxone Sodium 1 gm in 50 mls @ 100 mls/hr 10/03/20 10:00 10/03/20 10:45 Rocephin/Ns 1 Gm/50 Ml IV 100 mls/hr Q24HR DEBORAH Administration Protocol Azithromycin 500 mg in 250 mls @ 250 mls/hr 10/03/20 10:00 Zithromax/Ns IV Q24HR [facility] Sodium Chloride 1,000 mls @ 75 mls/hr 10/03/20 03:45 10/03/20 07:23 Nacl 0.9% 1000 Ml IV 75 mls/hr DIRECT DEBORAH Administration Ondansetron HCl 4 mg 10/03/20 01:56 Ondansetron 4 Mg/2 Ml Inj IV Q4H PRN Nausea And Vomiting Senna 8.6 mg 10/03/20 01:56 Sennosides 8.6 Mg Tab PO Q12H PRN Laxative Effect Tramadol HCl 50 mg 10/03/20 01:43 Tramadol 50 Mg Tab PO Q4H PRN Pain, Moderate (4-6) Trazodone HCl 50 mg 10/03/20 01:43 Trazodone 50 Mg Tab PO QHS PRN Insomnia
[2020-10-03] MEDS: AZITHROMYCIN/NS 500 MG/250 ML 500 MG/250 ML BAG IV SCH (13:46)
--- NOTE | 2020-10-03 15:29 | Vascular Lab Report ---
DUPLEX DOPPLER LOWER EXTREMITY VEINS, BILATERAL INDICATION: r/o dvt. Bilateral leg swelling shortness of breath TECHNIQUE: Duplex doppler imaging was performed through the veins of both lower extremities using venous johny hayder and other maneuvers. COMPARISON: None available. FINDINGS: Right Common Femoral vein: Negative. Right Superficial Femoral vein: Negative. Right Popliteal vein: Negative. Right Calf veins: Negative. Left Common Femoral vein: Negative. Left Superficial Femoral vein: Negative. Left Popliteal vein: Negative. Left Calf veins: Negative. Additional findings: None. IMPRESSION: 1. No sonographic evidence for DVT in either lower extremity. Signer Name: Ashley Perez MD Signed: 10/03/2020 3:24 PM Workstation Name: [id number]
[2020-10-03] MEDS: ARFORMOTEROL 15 MCG/2 ML NEBU IH SCH ×2 (17:43→21:26)
[2020-10-03] MEDS: BUDESONIDE 0.25 MG/2 ML NEBU IH SCH ×2 (17:44→21:25)
[2020-10-03] MEDS: ACETAMINOPHEN 325 MG TAB PO PRN (18:06)
[2020-10-03] MEDS: hydrALAZINE 20 MG/1 ML INJ IV PRN (18:07)
[2020-10-03] MEDS: traZODone 50 MG TAB PO PRN (21:23)
[2020-10-03] MEDS: traMADol 50 MG TAB PO PRN (21:23)
[2020-10-03] MEDS: LISINOPRIL 40 MG TAB PO SCH (21:23)
[2020-10-03] MEDS: ALBUTEROL 2.5 MG/3 ML NEBU IH PRN (21:25)
[2020-10-04] MEDS: guaiFENesin DM 200/20 MG ORAL LIQD 10 ML PO PRN ×3 (00:32→21:51)
[2020-10-04 06:33] LABS: Hematocrit 43.3 % (35.5-45.6); Hemoglobin 14.3 gm/dl (11.8-15.2); Mean Corpuscular HGB Conc 33 % (32-34); Mean Corpuscular Volume 92 fl (84-94); Platelet Count 219 K/mm3 (140-440); Red Blood Count 4.71 M/mm3 (3.65-5.03); Red Cell Distribution Width 15.1 % (13.2-15.2)
[2020-10-04 06:35] LABS: BUN/Creatinine Ratio 11; Blood Urea Nitrogen 11 mg/dL (9-20); Calcium 8.5 mg/dL (8.4-10.2); Hemolysis Index 9
[2020-10-04] MEDS: BUDESONIDE 0.25 MG/2 ML NEBU IH SCH (07:33)
[2020-10-04] MEDS: ARFORMOTEROL 15 MCG/2 ML NEBU IH SCH ×3 (07:34→11:15)
[2020-10-04 08:21] LABS: Total Cells Counted 100
[2020-10-04 08:26] LABS: Burr Cells Few; Platelet Estimate Consistent w Auto
[2020-10-04] MEDS: LISINOPRIL 40 MG TAB PO SCH ×2 (09:02→21:23)
[2020-10-04] MEDS: traMADol 50 MG TAB PO PRN ×2 (09:02→17:28)
[2020-10-04] MEDS: ENOXAPARIN 40 MG/0.4 ML INJ SUB-Q SCH (09:04)
[2020-10-04] MEDS: cefTRIAXone/NS 1 GM/50 ML 1 GM/50 ML BAG IV SCH (09:04)
[2020-10-04] MEDS ORDERED: methylPREDNISolone Sod Succinate 125 MG/2 ML INJ IV ONE (09:23)
--- NOTE | 2020-10-04 09:28 | Progress Note ---
Assessment and Plan - Patient Problems (1) Acute respiratory failure with hypoxia Current Visit: Yes Status: Acute (2) Fever Current Visit: Yes Status: Acute Qualifiers: Fever type: unspecified Qualified Code(s): R50.9 - Fever, unspecified (3) Person under investigation for COVID-19 Current Visit: Yes Status: Acute (4) Pneumonia Current Visit: Yes Status: Acute Qualifiers: Pneumonia type: due to unspecified organism Laterality: bilateral Lung location: unspecified part of lung Qualified Code(s): J18.9 - Pneumonia, unspecified organism (5) Respiratory failure Current Visit: Yes Status: Acute Qualifiers: Chronicity: acute Respiratory failure complication: hypoxia Qualified Code(s): J96.01 - Acute respiratory failure with hypoxia (6) SOB (shortness of breath) Current Visit: Yes Status: Acute (7) Sepsis Current Visit: Yes Status: Acute Subjective Interval history: awake and responsive on hiflo o2 episodes of blood streaked sputum feels better Objective Vital Signs - 12hr 10/03/20 10/03/20 10/03/20 21:30 21:33 22:00 Temperature Pulse Rate 95 H Pulse Rate [ 84 Bilateral Throughout] Pulse Rate [ From Monitor] Respiratory 29 H Rate Respiratory 26 H Rate [Bilateral Throughout] Respiratory 16 Rate [ Generalized] Blood Pressure 153/94 O2 Sat by Pulse 92 Oximetry 10/03/20 10/04/20 10/04/20 23:00 00:00 00:20 Temperature 98.2 F Pulse Rate 89 98 H Pulse Rate [ Bilateral Throughout] Pulse Rate [ From Monitor] Respiratory 29 H 34 H Rate Respiratory Rate [Bilateral Throughout] Respiratory Rate [ Generalized] Blood Pressure 142/83 142/90 O2 Sat by Pulse 94 87 95 Oximetry 10/04/20 10/04/20 10/04/20 01:00 02:00 02:40 Temperature Pulse Rate 102 H 101 H 90 Pulse Rate [ Bilateral Throughout] Pulse Rate [ From Monitor] Respiratory 20 12 Rate Respiratory Rate [Bilateral Throughout] Respiratory Rate [ Generalized] Blood Pressure 151/99 171/106 O2 Sat by Pulse 93 94 Oximetry 10/04/20 10/04/20 10/04/20 03:00 04:00 04:03 Temperature 98.2 F Pulse Rate 99 H 85 86 Pulse Rate [ Bilateral Throughout] Pulse Rate [ From Monitor] Respiratory 26 H 20 Rate Respiratory Rate [Bilateral Throughout] Respiratory Rate [ Generalized] Blood Pressure 168/88 148/84 O2 Sat by Pulse 96 91 Oximetry 10/04/20 10/04/20 10/04/20 05:00 06:00 07:00 Temperature Pulse Rate 81 89 83 Pulse Rate [ Bilateral Throughout] Pulse Rate [ 90 From Monitor] Respiratory 25 H 13 24 Rate Respiratory Rate [Bilateral Throughout] Respiratory Rate [ Generalized] Blood Pressure 141/89 141/89 171/92 O2 Sat by Pulse 91 96 Oximetry 10/04/20 10/04/20 10/04/20 07:34 07:35 08:00 Temperature 99.5 F Pulse Rate 86 Pulse Rate [ 81 Bilateral Throughout] Pulse Rate [ From Monitor] Respiratory 17 Rate Respiratory 23 Rate [Bilateral Throughout] Respiratory Rate [ Generalized] Blood Pressure 166/101 O2 Sat by Pulse 98 96 Oximetry 10/04/20 10/04/20 09:00 09:02 Temperature Pulse Rate 89 90 Pulse Rate [ Bilateral Throughout] Pulse Rate [ From Monitor] Respiratory 11 L 14 Rate Respiratory Rate [Bilateral Throughout] Respiratory Rate [ Generalized] Blood Pressure 166/94 166/94 O2 Sat by Pulse 93 Oximetry Constitutional: no acute distress, alert, other (on hiflo) ENT: oropharynx moist Neck: supple Effort: normal Ascultation: Bilateral: rhonchi Cardiovascular: regular rate and rhythm Gastrointestinal: normoactive bowel sounds, soft, non-tender, non-distended Integumentary: normal Extremities: no cyanosis CBC and BMP: 10/04/20 05:41 10/04/20 05:41 ABG, PT/INR, D-dimer: PT/INR, D-dimer D-Dimer 963.03 ng/mlDDU (0-234) H 10/02/20 23:55 Abnormal lab findings: Abnormal Labs 10/02/20 10/02/20 10/02/20 23:36 23:36 23:55 WBC 28.4 H RBC 5.20 H Hgb 16.1 H Hct 46.9 H Seg Neuts % (Manual) 82.0 H Lymphocytes % (Manual) 6.0 L Seg Neutrophils # Man 23.3 H Monocytes # (Manual) 0.9 H D-Dimer 963.03 H Chloride Carbon Dioxide 21 L Glucose 116 H Lactic Acid Ferritin Total Bilirubin 1.70 H AST 67 H Lactate Dehydrogenase C-Reactive Protein Ur Specific [place] 10/02/20 10/02/2010/03/21 23:55 23:55 00:52 WBC RBC Hgb Hct Seg Neuts % (Manual) Lymphocytes % (Manual) Seg Neutrophils # Man Monocytes # (Manual) D-Dimer Chloride Carbon Dioxide Glucose 105 H Lactic Acid 3.10 H* Ferritin 349.5 H Total Bilirubin AST Lactate Dehydrogenase 554 H C-Reactive Protein 5.60 H Ur Specific [place] 10/03/20 10/04/20 10/04/20 07:50 05:41 05:41 WBC 21.4 H RBC Hgb Hct Seg Neuts % (Manual) 83.0 H Lymphocytes % (Manual) 12.0 L Seg Neutrophils # Man 17.8 H Monocytes # (Manual) 1.1 H D-Dimer Chloride 107.6 H Carbon Dioxide Glucose 101 H Lactic Acid Ferritin Total Bilirubin AST Lactate Dehydrogenase C-Reactive Protein Ur Specific [place] 1.034 H
[2020-10-04] MEDS ORDERED: methylPREDNISolone Sod Succinate 125 MG/2 ML INJ IV NR (09:30)
--- NOTE | 2020-10-04 11:08 | Progress Note ---
Assessment and Plan Assessment and plan: Acute hypoxic respiratory failure Sepsis, POA. Bilateral pneumonia. COVID-19 testing negative Acute asthma exacerbation Elevated D-dimer. CTA negative for PE Hypertension Tobacco abuse 10/03/2020. Continue IV antibiotics for now and follow-up procalcitonin. Add steroids for asthma exacerbation. Continue bronchodilators. Continue BiPAP 12/6 and FiO2 100%. Pulmonary and ID consultations pending. 10/04/2020. Patient still with significant respiratory failure with etiology secondary to likely community-acquired pneumonia and acute asthma exacerbation. Covid testing negative. Start IV steroids and monitor closely. Continue IV antibiotics and follow-up chest x-ray in a.m. Patient counseled on tobacco cessation. Patient still requiring high flow nasal cannula 15 L/min. Continue to wean oxygen as tolerated. Patient will remain in IMCU due to high risk of decompensation given respiratory status. The high probability of a clinically significant, sudden or life threatening deterioration of the [respiratory] system(s) required my full and direct attention, intervention and personal management. The aggregate critical care time was [32] minutes. This time is in addition to time spent performing reported procedures but includes the following: [x] Data Review and interpretation [x] Patient assessment and monitoring of vital signs [x] Documentation [x] Medication orders and management History Interval history: No new issues overnight. Hospitalist Physical - Constitutional Vitals: Temp Pulse Resp BP Pulse Ox 99.5 F 90 14 166/94 93 10/04/20 08:00 10/04/20 09:02 10/04/20 09:02 10/04/20 09:02 10/04/20 09:00 General appearance: Present: severe distress, obese - EENT Eyes: Present: PERRL, EOM intact ENT: hearing intact, clear oral mucosa, dentition normal - Neck Neck: Present: supple, normal ROM - Respiratory Respiratory effort: normal Respiratory: bilateral: CTA - Cardiovascular Rhythm: regular Heart Sounds: Present: S1 & S2. Absent: gallop, rub - Extremities Extremities: no ischemia, No edema, Full ROM - Abdominal General gastrointestinal: soft, non-tender, non-distended, normal bowel sounds - Integumentary Integumentary: Present: clear, warm, dry - Neurologic Neurologic: CNII-XII intact, moves all extremities HEART Score - HEART Score Troponin: Troponin T < 0.010 ng/mL (0.00-0.029) 10/02/20 23:55 Results - Labs CBC & Chem 7: 10/04/20 05:41 10/04/20 05:41 Labs: Laboratory Last Values WBC 21.4 K/mm3 (4.5-11.0) H 10/04/20 05:41 RBC 4.71 M/mm3 (3.65-5.03) 10/04/20 05:41 Hgb 14.3 gm/dl (11.8-15.2) 10/04/20 05:41 Hct 43.3 % (35.5-45.6) 10/04/20 05:41 MCV 92 fl (84-94) 10/04/20 05:41 MCH 30 pg (28-32) 10/04/20 05:41 MCHC 33 % (32-34) 10/04/20 05:41 RDW 15.1 % (13.2-15.2) 10/04/20 05:41 Plt Count 219 K/mm3 (140-440) 10/04/20 05:41 Add Manual Diff Complete 10/04/20 05:41 Total Counted 100 10/04/20 05:41 Seg Neutrophils % Electrical Pl[employer] Supervisor 10/02/20 23:36 Seg Neuts % (Manual) 83.0 % (40.0-70.0) H 10/04/20 05:41 Band Neutrophils % 9.0 % 10/02/20 23:36 Lymphocytes % (Manual) 12.0 % (13.4-35.0) L 10/04/20 05:41 Monocytes % (Manual) 5.0 % (0.0-7.3) 10/04/20 05:41 Nucleated RBC % Not Reportable 10/04/20 05:41 Seg Neutrophils # Man 17.8 K/mm3 (1.8-7.7) H 10/04/20 05:41 Band Neutrophils # 0.0 K/mm3 10/04/20 05:41 Lymphocytes # (Manual) 2.6 K/mm3 (1.2-5.4) 10/04/20 05:41 Abs React Lymphs (Man) 0.0 K/mm3 10/04/20 05:41 Monocytes # (Manual) 1.1 K/mm3 (0.0-0.8) H 10/04/20 05:41 Eosinophils # (Manual) 0.0 K/mm3 (0.0-0.4) 10/04/20 05:41 Basophils # (Manual) 0.0 K/mm3 (0.0-0.1) 10/04/20 05:41 Metamyelocytes # 0.0 K/mm3 10/04/20 05:41 Myelocytes # 0.0 K/mm3 10/04/20 05:41 Promyelocytes # 0.0 K/mm3 10/04/20 05:41 Blast Cells # 0.0 K/mm3 10/04/20 05:41 WBC Morphology Not Reportable 10/04/20 05:41 Hypersegmented Neuts Not Reportable 10/04/20 05:41 Hyposegmented Neuts Not Reportable 10/04/20 05:41 Hypogranular Neuts Not Reportable 10/04/20 05:41 Smudge Cells Not Reportable 10/04/20 05:41 Toxic Granulation Not Reportable 10/04/20 05:41 Toxic Vacuolation Not Reportable 10/04/20 05:41 Dohle Bodies Not Reportable 10/04/20 05:41 Pelger-Huet Anomaly Not Reportable 10/04/20 05:41 [place] Rods Not Reportable 10/04/20 05:41 Platelet Estimate Consistent w auto 10/04/20 05:41 Clumped Platelets Not Reportable 10/04/20 05:41 Plt Clumps, EDTA Not Reportable 10/04/20 05:41 Large Platelets Not Reportable 10/04/20 05:41 Giant Platelets Not Reportable 10/04/20 05:41 Platelet Satelliting Not Reportable 10/04/20 05:41 Plt Morphology Comment Not Reportable 10/04/20 05:41 RBC Morphology Not Reportable 10/04/20 05:41 Dimorphic RBCs Not Reportable 10/04/20 05:41 Polychromasia Not Reportable 10/04/20 05:41 Hypochromasia Not Reportable 10/04/20 05:41 Poikilocytosis Not Reportable 10/04/20 05:41 Anisocytosis Not Reportable 10/04/20 05:41 Microcytosis Not Reportable 10/04/20 05:41 Macrocytosis Not Reportable 10/04/20 05:41 Spherocytes Not Reportable 10/04/20 05:41 Pappenheimer Bodies Not Reportable 10/04/20 05:41 Sickle Cells Not Reportable 10/04/20 05:41 Target Cells Not Reportable 10/04/20 05:41 Tear Drop Cells Not Reportable 10/04/20 05:41 Ovalocytes Not Reportable 10/04/20 05:41 Helmet Cells Not Reportable 10/04/20 05:41 [place] Bodies Not Reportable 10/04/20 05:41 [place] Rings Not Reportable 10/04/20 05:41 [place] Cells Few 10/04/20 05:41 Bite Cells Not Reportable 10/04/20 05:41 Crenated Cell Not Reportable 10/04/20 05:41 Elliptocytes Not Reportable 10/04/20 05:41 Acanthocytes (Spur) Not Reportable 10/04/20 05:41 Rouleaux Not Reportable 10/04/20 05:41 Hemoglobin C Crystals Not Reportable 10/04/20 05:41 Schistocytes Not Reportable 10/04/20 05:41 Malaria parasites Not Reportable 10/04/20 05:41 [place] Bodies Not Reportable 10/04/20 05:41 Hem Pathologist Commnt No 10/04/20 05:41 D-Dimer 963.03 ng/mlDDU (0-234) H 10/02/20 23:55 Sodium 141 mmol/L (137-145) 10/04/20 05:41 Potassium 4.6 mmol/L (3.6-5.0) 10/04/20 05:41 Chloride 107.6 mmol/L (98-107) H 10/04/20 05:41 Carbon Dioxide 24 mmol/L (22-30) 10/04/20 05:41 Anion Gap 14 mmol/L 10/04/20 05:41 BUN 11 mg/dL (9-20) 10/04/20 05:41 Creatinine 1.0 mg/dL (0.8-1.3) 10/04/20 05:41 Estimated GFR > 60 ml/min 10/04/20 05:41 BUN/Creatinine Ratio 11 % 10/04/20 05:41 Glucose 101 mg/dL (75-100) H 10/04/20 05:41 Lactic Acid 1.40 mmol/L (0.7-2.0) 10/03/20 05:34 Calcium 8.5 mg/dL (8.4-10.2) 10/04/20 05:41 Ferritin 349.5 ng/mL (30.0-300.0) H 10/02/20 23:55 Total Bilirubin 1.70 mg/dL (0.1-1.2) H 10/02/20 23:36 AST 67 units/L (5-40) H 10/02/20 23:36 ALT 36 units/L (7-56) 10/02/20 23:36 Alkaline Phosphatase 66 units/L (35-129) 10/02/20 23:36 Lactate Dehydrogenase 554 units/L (91-180) H 10/02/20 23:55 Troponin T < 0.010 ng/mL (0.00-0.029) 10/02/20 23:55 C-Reactive Protein 5.60 mg/dL (0.00-1.30) H 10/02/20 23:55 Total Protein 7.3 g/dL (6.3-8.2) 10/02/20 23:36 Albumin 4.3 g/dL (3.9-5) 10/02/20 23:36 Albumin/Globulin Ratio 1.4 % 10/02/20 23:36 Procalcitonin 1.14 ng/mL (<0.15) 10/02/20 23:55 Urine Color Yellow (Yellow) 10/03/20 07:50 Urine Turbidity Clear (Clear) 10/03/20 07:50 Urine pH 5.0 (5.0-7.0) 10/03/20 07:50 Ur Specific [place] 1.034 (1.003-1.030) H 10/03/20 07:50 Urine Protein <15 mg/dl mg/dL (Negative) 10/03/20 07:50 Urine Glucose (UA) Neg mg/dL (Negative) 10/03/20 07:50 Urine Ketones Tr mg/dL (Negative) 10/03/20 07:50 Urine Blood Neg (Negative) 10/03/20 07:50 Urine Nitrite Neg (Negative) 10/03/20 07:50 Urine Bilirubin Neg (Negative) 10/03/20 07:50 Urine Urobilinogen < 2.0 mg/dL (<2.0) 10/03/20 07:50 Ur Leukocyte Esterase Neg (Negative) 10/03/20 07:50 Urine WBC (Auto) 0.0 /HPF (0.0-6.0) 10/03/20 07:50 Urine RBC (Auto) 1.0 /HPF (0.0-6.0) 10/03/20 07:50 Urine Mucus Few /HPF 10/03/20 07:50 Coronavirus (PCR) Negative (Negative) 10/03/20 Unknown Microbiology: Microbiology 10/02/20 23:55 Peripheral/Venous Blood Culture - Preliminary NO GROWTH AFTER 24 HOURS 10/03/20 00:12 Peripheral/Venous Blood Culture - Preliminary NO GROWTH AFTER 24 HOURS Ruiz/IV: Voiding Method Urinal Active Medications - Current Medications Current Medications: Generic Name Dose Route Start Last Admin Trade Name Freq PRN Reason Stop Dose Admin Acetaminophen 650 mg 10/03/20 02:15 10/03/20 18:06 Acetaminophen 325 Mg Tab PO 650 mg Q4H PRN Administration Fever >101 Al Hydrox/Mg Hydrox/Simethicone 15 ml 10/03/20 01:56 Alum-Mag Hydroxide-Simethicone 210-338-50jo/5ml Oral Liqd 30 Ml PO Q4H PRN Indigestion Albuterol 2.5 mg 10/03/20 01:45 10/03/20 21:25 Albuterol 2.5 Mg/3 Ml Nebu IH 2.5 mg Q4HRT PRN Administration Shortness Of Breath Arformoterol Tartrate 15 mcg 10/03/20 11:00 10/04/20 07:34 Arformoterol 15 Mcg/2 Ml Nebu IH 15 mcg Q12HRT DEBORAH Administration Arformoterol Tartrate 15 mcg 10/04/20 10:00 Arformoterol 15 Mcg/2 Ml Nebu IH Q12HRT DEBORAH Budesonide 0.25 mg 10/03/20 11:00 10/04/20 07:33 Budesonide 0.25 Mg/2 Ml Nebu IH 0.25 mg Q12HRT DEBORAH Administration Enoxaparin Sodium 40 mg 10/03/20 10:00 10/04/20 09:04 Enoxaparin 40 Mg/0.4 Ml Inj SUB-Q 40 mg DAILY DEBORAH Administration Protocol Guaifenesin 20 ml 10/04/20 00:02 10/04/20 09:02 Guaifenesin Dm 200/20 Mg Oral Liqd 10 Ml PO 20 ml BID PRN Administration Cough Hydralazine HCl 5 mg 10/03/20 01:47 10/03/20 18:07 Hydralazine 20 Mg/1 Ml Inj IV 5 mg Q4H PRN Administration Hypertension Ceftriaxone Sodium 1 gm in 50 mls @ 100 mls/hr 10/03/20 10:00 10/04/20 09:04 Rocephin/Ns 1 Gm/50 Ml IV 100 mls/hr Q24HR DEBORAH Administration Protocol Azithromycin 500 mg in 250 mls @ 250 mls/hr 10/03/20 10:00 10/03/20 13:46 Zithromax/Ns IV 250 mls/hr Q24HR DEBORAH Administration Sodium Chloride 1,000 mls @ 75 mls/hr 10/03/20 03:45 10/03/20 21:30 Nacl 0.9% 1000 Ml IV 75 mls/hr DIRECT DEBORAH Administration Lisinopril 40 mg 10/03/20 22:00 10/04/20 09:02 Lisinopril 40 Mg Tab PO 40 mg BID DEBORAH Administration Methylprednisolone Sodium Succinate 80 mg 10/04/20 14:00 Methylprednisolone Sod Succinate 125 Mg/2 Ml Inj IV 10/06/20 11:00 Q8HR DEBORAH Methylprednisolone Sodium Succinate 40 mg 10/06/20 14:00 Methylprednisolone Sod Succinate 40 Mg/1 Ml Inj IV Q8HR [facility] Nicotine 14 mg 10/04/20 10:00 Nicotine 14 Mg/24 Hr Patch TD QDAY [facility] Ondansetron HCl 4 mg 10/03/20 01:56 Ondansetron 4 Mg/2 Ml Inj IV Q4H PRN Nausea And Vomiting Senna 8.6 mg 10/03/20 01:56 Sennosides 8.6 Mg Tab PO Q12H PRN Laxative Effect Tramadol HCl 50 mg 10/03/20 01:43 10/04/20 09:02 Tramadol 50 Mg Tab PO 50 mg Q4H PRN Administration Pain, Moderate (4-6) Trazodone HCl 50 mg 10/03/20 01:43 10/03/20 21:23 Trazodone 50 Mg Tab PO 50 mg QHS PRN Administration Insomnia
--- NOTE | 2020-10-04 11:48 | Consultation ---
History of Present Illness - Reason for Consult Consult date: 10/04/20 Pneumonia Requesting physician: TORY ESPARZA - History of Present Illness 39 years old male with history of tobacco abuse, asthma, hypertension, obesity admitted on 10/02/2020 secondary to a week history of cough, shortness of breath, nasal congestion, wheezing associated with body aches and fever/chills. Patient smokes 1 pack of cigarettes a day. He also reports poor appetite. In the ED, t emperature 100.1, HR 101, RR 20, O2 sat 88%, BP 153/93. Initial WBC 28.4. Hemoglobin 16. Platelets 254. D-dimer 963. Ferritin 3.9. Lactate 3.1. Creatinine 1.2. AST 67. CRP 5.6. Procalcitonin 1.1. Urinalysis negative. SARS-CoV-2 PCR negative. Blood culture 07/05/2021 no growth today. Chest x-ray shows bilateral . CT chest shows bilateral extensive airspace consolidation, no PE. Legs ultrasound no DVT. Review of Systems: positive in bold print General: fever, chills, malaise Cutaneous: rash, pruritus Head: headaches or injury Eyes: changes in vision, eye pain, double vision Ears: ear pain, ear discharge, ringing or hearing loss Nose: nose bleeding, stuffiness Mouth & throat: bleeding gums, horseness, no dental problems, or swollen glands Neck: no pain, node enlargement/lumps, tyroid enlargement or tenderness Respiratory: SOB, cough, LEE, wheezing, sputum, hemoptysis, pleuritic chest pain Cardiovascular: chest pain, leg edema, cyanosis, LEE, orthopnea Musculoskeletal: Chronic right shoulder and hand pain Gastrointestinal: nausea, vomiting, hematemesis, diarrhea, constipation, melena, bright red blood in stools, fecal incontinence, jaundice Genitourinary/Reproductive: frequent urination, dysuria, hematuria, incontinence Neurogical: seizures, headaches, weakness, paresthesias, loss of speech or vision; memory loss, vertigo, tremors, numbness Psychiatric: stable mood; excessive anxiety, sadness or moodiness Past History Past Medical History: hypertension, other (asthma) Past Surgical History: No surgical history Social history: no significant social history, smoking Family history: hypertension Medications and Allergies Allergies Allergy/AdvReac Type Severity Reaction Status Date / Time No Known Allergies Allergy Unverified 10/02/20 23:18 Active Meds: Active Medications Acetaminophen (Acetaminophen 325 Mg Tab) 650 mg PO Q4H PRN PRN Reason: Fever >101 Last Admin: 10/03/20 18:06 Dose: 650 mg Documented by: Al Hydrox/Mg Hydrox/Simethicone (Alum-Mag Hydroxide-Simethicone 561-257-09ig/5ml Oral Liqd 30 Ml) 15 ml PO Q4H PRN PRN Reason: Indigestion Albuterol (Albuterol 2.5 Mg/3 Ml Nebu) 2.5 mg IH Q4HRT PRN PRN Reason: Shortness Of Breath Last Admin: 10/03/20 21:25 Dose: 2.5 mg Documented by: Arformoterol Tartrate (Arformoterol 15 Mcg/2 Ml Nebu) 15 mcg IH Q12HRT DEBORAH Last Admin: 10/04/20 11:15 Dose: Not Given Documented by: Arformoterol Tartrate (Arformoterol 15 Mcg/2 Ml Nebu) 15 mcg IH Q12HRT DEBORAH Last Admin: 10/04/20 07:34 Dose: 15 mcg Documented by: Budesonide (Budesonide 0.25 Mg/2 Ml Nebu) 0.25 mg IH Q12HRT DEBORAH Last Admin: 10/04/20 07:33 Dose: 0.25 mg Documented by: Enoxaparin Sodium (Enoxaparin 40 Mg/0.4 Ml Inj) 40 mg SUB-Q DAILY DEBORAH; Protocol Last Admin: 10/04/20 09:04 Dose: 40 mg Documented by: Guaifenesin (Guaifenesin Dm 200/20 Mg Oral Liqd 10 Ml) 20 ml PO BID PRN PRN Reason: Cough Last Admin: 10/04/20 09:02 Dose: 20 ml Documented by: Hydralazine HCl (Hydralazine 20 Mg/1 Ml Inj) 5 mg IV Q4H PRN PRN Reason: Hypertension Last Admin: 10/03/20 18:07 Dose: 5 mg Documented by: Ceftriaxone Sodium (Rocephin/Ns 1 Gm/50 Ml) 1 gm in 50 mls @ 100 mls/hr IV Q24HR DEBORAH; Protocol Last Admin: 10/04/20 09:04 Dose: 100 mls/hr Documented by: Sodium Chloride (Nacl 0.9% 1000 Ml) 1,000 mls @ 75 mls/hr IV DIRECT DEBORAH Last Admin: 10/03/20 21:30 Dose: 75 mls/hr Documented by: Azithromycin 500 mg/ Sodium (Chloride) 250 mls @ 250 mls/hr IV Q24HR [facility] Lisinopril (Lisinopril 40 Mg Tab) 40 mg PO BID DEBORAH Last Admin: 10/04/20 09:02 Dose: 40 mg Documented by: Methylprednisolone Sodium Succinate (Methylprednisolone Sod Succinate 125 Mg/2 Ml Inj) 80 mg IV Q8HR DEBORAH Stop: 10/06/20 11:00 Methylprednisolone Sodium Succinate (Methylprednisolone Sod Succinate 40 Mg/1 Ml Inj) 40 mg IV Q8HR [facility] Nicotine (Nicotine 14 Mg/24 Hr Patch) 14 mg TD QDAY [facility] Ondansetron HCl (Ondansetron 4 Mg/2 Ml Inj) 4 mg IV Q4H PRN PRN Reason: Nausea And Vomiting Senna (Sennosides 8.6 Mg Tab) 8.6 mg PO Q12H PRN PRN Reason: Laxative Effect Tramadol HCl (Tramadol 50 Mg Tab) 50 mg PO Q4H PRN PRN Reason: Pain, Moderate (4-6) Last Admin: 10/04/20 09:02 Dose: 50 mg Documented by: Trazodone HCl (Trazodone 50 Mg Tab) 50 mg PO QHS PRN PRN Reason: Insomnia Last Admin: 10/03/20 21:23 Dose: 50 mg Documented by: Physical Examination - Physical Exam Narrative exam: General appearance: Alert in NAD pleasant obese on softer nasal cannula Eyes: anicteric sclerae, moist conjunctivae; no lid-lag; PERRLA HENT: Normocephalic, Atraumatic; normal external ears, nares open, oropharynx clear with moist mucous membranes and no oral thrush; normal hard and soft palate. Neck: supple, tracheal midline, no JVD Lungs: bilateral wheezing CV: RRR no murmur Abdomen: Soft, non-tender; no masses or hepatosplenomegaly Extremities: no edema, no cyanosis Skin: No rash. Psych: no agitated Neuro: alert and oriented x 3. Moving all extermities - Constitutional Vitals: Vital Signs Temp Pulse Resp BP Pulse Ox 99.5 F 90 14 166/94 93 10/04/20 08:00 10/04/20 09:02 10/04/20 09:02 10/04/20 09:02 10/04/20 09:00 Temperature -Last 24 Hours Temperature 99.5 F Temperature 98.2 F Temperature 98.2 F Temperature 97.9 F Temperature 98.6 F Temperature 98.2 F Results - Labs CBC & Chem 7: 10/04/20 05:41 10/04/20 05:41 Labs: Abnormal lab results 10/04/20 10/04/20 Range/Units 05:41 05:41 WBC 21.4 H (4.5-11.0) K/mm3 Seg Neuts % (Manual) 83.0 H (40.0-70.0) % Lymphocytes % (Manual) 12.0 L (13.4-35.0) % Seg Neutrophils # Man 17.8 H (1.8-7.7) K/mm3 Monocytes # (Manual) 1.1 H (0.0-0.8) K/mm3 Chloride 107.6 H (98-107) mmol/L Glucose 101 H (75-100) mg/dL Assessment and Plan Cultures: Blood culture 10/03/2020 no growth today Assessment: 39 years old male with history of tobacco abuse, asthma, hypertension, obesity admitted on 10/02/2020 secondary to a week history of cough, shortness of breath, nasal congestion, wheezing associated with body aches and fever/chills: #Severe sepsis: Present on admission with fever, tachycardia, hypoxia, elevated lactate, leukocytosis; likely secondary to bilateral pneumonia #Bilateral pneumonia: Likely associated with asthma exacerbation. SARS-CoV-2 PCR negative. Noted elevated D-dimer at night 63, mild elevated ferritin, CRP. Procalcitonin 0.1. Please likely represent community-acquired pneumonia/legionnaires however should rule out COVID-19 infection. CTA shows extensive bilateral pneumonia no PE. Legs ultrasound no DVT. #Acute hypoxemic respiratory failure: Now on salter nasal cannula #Tobacco abuse #Asthma exacerbation #Transaminitis: Mild. Recommendations: -Repeat SARS-CoV-2 PCR -Continue ceftriaxone 2 g IV once a day total 5 days -Continue azithromycin 500 g IV/PO once a day total 5 days -Obtain Legionella urine antigen and strep urine ag -If repeat SARS-CoV-2 PCR is positive start dexamethasone and remdesivir -Obtain HIV testing Will follow. Filomena Powers MD Infectious Diseases New Accounts Representative [facility] ([facility] M [phone] O [phone]
[2020-10-04] MEDS ORDERED: AZITHROMYCIN 500 MG in SODIUM CHLORIDE 0.9% 250ML 250 ML IV SCH (12:00)
[2020-10-04] MEDS: AZITHROMYCIN/NS 500 MG/250 ML 500 MG/250 ML BAG IV SCH (12:34)
[2020-10-04] MEDS: NICOTINE 14 MG/24 HR PATCH TD SCH (12:36)
[2020-10-04] MEDS: ALBUTEROL 2.5 MG/3 ML NEBU IH PRN (13:40)
--- NOTE | 2020-10-04 13:59 | Electrocardiograph Report ---
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
[2020-10-04] MEDS: methylPREDNISolone Sod Succinate 125 MG/2 ML INJ IV SCH ×2 (14:00→21:23)
[2020-10-04] MEDS: hydrALAZINE 20 MG/1 ML INJ IV PRN (14:15)
[2020-10-05] MEDS: BUDESONIDE 0.25 MG/2 ML NEBU IH SCH ×3 (00:10→21:39)
[2020-10-05] MEDS: ARFORMOTEROL 15 MCG/2 ML NEBU IH SCH ×3 (00:10→21:38)
[2020-10-05] MEDS: ACETAMINOPHEN 325 MG TAB PO PRN ×3 (01:19→20:01)
[2020-10-05] MEDS: methylPREDNISolone Sod Succinate 125 MG/2 ML INJ IV SCH ×3 (05:30→21:51)
[2020-10-05] MEDS: SODIUM CHLORIDE 0.9% 1000 ML 1,000 ML IV SCH ×2 (05:31→18:00)
[2020-10-05 05:45] LABS: BUN/Creatinine Ratio 14; Blood Urea Nitrogen 14 mg/dL (9-20); Calcium 8.7 mg/dL (8.4-10.2); Hemolysis Index 14
[2020-10-05] MEDS: ENOXAPARIN 40 MG/0.4 ML INJ SUB-Q SCH (09:11)
[2020-10-05] MEDS: AZITHROMYCIN 250 MG TAB PO SCH (09:11)
[2020-10-05] MEDS: LISINOPRIL 40 MG TAB PO SCH ×2 (09:11→21:50)
[2020-10-05] MEDS: cefTRIAXone/NS 2 GM/100 ML 2 GM/100 ML BAG IV SCH (09:11)
[2020-10-05] MEDS: guaiFENesin DM 200/20 MG ORAL LIQD 10 ML PO PRN ×2 (09:14→20:03)
[2020-10-05] MEDS: NICOTINE 14 MG/24 HR PATCH TD SCH (09:48)
--- NOTE | 2020-10-05 09:49 | Progress Note ---
Assessment and Plan Assessment and plan: Acute hypoxic respiratory failure Sepsis, POA. Bilateral pneumonia. COVID-19 testing negative Acute asthma exacerbation Elevated D-dimer. CTA negative for PE Hypertension Tobacco abuse 10/03/2020. Continue IV antibiotics for now and follow-up procalcitonin. Add steroids for asthma exacerbation. Continue bronchodilators. Continue BiPAP 12/6 and FiO2 100%. Pulmonary and ID consultations pending. 10/04/2020. Patient still with significant respiratory failure with etiology secondary to likely community-acquired pneumonia and acute asthma exacerbation. Covid testing negative. Start IV steroids and monitor closely. Continue IV antibiotics and follow-up chest x-ray in a.m. Patient counseled on tobacco cessation. Patient still requiring high flow nasal cannula 15 L/min. Continue to wean oxygen as tolerated. Patient will remain in IMCU due to high risk of decompensation given respiratory status. 10/05/2020. Patient still with significant respiratory failure with etiology secondary to likely community-acquired pneumonia and acute asthma exacerbation. Covid testing negative. Continue Solu-Medrol 40 mg IV every 8 hours. Patient still requiring high flow nasal cannula 15 L/min. Continue to wean oxygen as tolerated. Patient will remain in IMCU due to high risk of decomp ensation given respiratory status. Continue IV antibiotics and follow-up chest x-ray. History Interval history: No new issues overnight. Hospitalist Physical - Constitutional Vitals: Temp Pulse Resp BP Pulse Ox 98.8 F 92 H 22 164/95 97 10/05/20 04:00 10/05/20 09:11 10/05/20 08:00 10/05/20 09:11 10/05/20 08:00 General appearance: Present: severe distress, obese - EENT Eyes: Present: PERRL, EOM intact ENT: hearing intact, clear oral mucosa, dentition normal - Neck Neck: Present: supple, normal ROM - Respiratory Respiratory effort: normal Respiratory: bilateral: CTA - Cardiovascular Rhythm: regular Heart Sounds: Present: S1 & S2. Absent: gallop, rub - Extremities Extremities: no ischemia, No edema, Full ROM - Abdominal General gastrointestinal: soft, non-tender, non-distended, normal bowel sounds - Integumentary Integumentary: Present: clear, warm, dry - Neurologic Neurologic: CNII-XII intact, moves all extremities HEART Score - HEART Score Troponin: Troponin T < 0.010 ng/mL (0.00-0.029) 10/02/20 23:55 Results - Labs CBC & Chem 7: 10/04/20 05:41 10/05/20 04:29 Labs: Laboratory Last Values WBC 21.4 K/mm3 (4.5-11.0) H 10/04/20 05:41 RBC 4.71 M/mm3 (3.65-5.03) 10/04/20 05:41 Hgb 14.3 gm/dl (11.8-15.2) 10/04/20 05:41 Hct 43.3 % (35.5-45.6) 10/04/20 05:41 MCV 92 fl (84-94) 10/04/20 05:41 MCH 30 pg (28-32) 10/04/20 05:41 MCHC 33 % (32-34) 10/04/20 05:41 RDW 15.1 % (13.2-15.2) 10/04/20 05:41 Plt Count 219 K/mm3 (140-440) 10/04/20 05:41 Add Manual Diff Complete 10/04/20 05:41 Total Counted 100 10/04/20 05:41 Seg Neutrophils % Animal Husbandry Professor 10/02/20 23:36 Seg Neuts % (Manual) 83.0 % (40.0-70.0) H 10/04/20 05:41 Band Neutrophils % 9.0 % 10/02/20 23:36 Lymphocytes % (Manual) 12.0 % (13.4-35.0) L 10/04/20 05:41 Monocytes % (Manual) 5.0 % (0.0-7.3) 10/04/20 05:41 Nucleated RBC % Not Reportable 10/04/20 05:41 Seg Neutrophils # Man 17.8 K/mm3 (1.8-7.7) H 10/04/20 05:41 Band Neutrophils # 0.0 K/mm3 10/04/20 05:41 Lymphocytes # (Manual) 2.6 K/mm3 (1.2-5.4) 10/04/20 05:41 Abs React Lymphs (Man) 0.0 K/mm3 10/04/20 05:41 Monocytes # (Manual) 1.1 K/mm3 (0.0-0.8) H 10/04/20 05:41 Eosinophils # (Manual) 0.0 K/mm3 (0.0-0.4) 10/04/20 05:41 Basophils # (Manual) 0.0 K/mm3 (0.0-0.1) 10/04/20 05:41 Metamyelocytes # 0.0 K/mm3 10/04/20 05:41 Myelocytes # 0.0 K/mm3 10/04/20 05:41 Promyelocytes # 0.0 K/mm3 10/04/20 05:41 Blast Cells # 0.0 K/mm3 10/04/20 05:41 WBC Morphology Not Reportable 10/04/20 05:41 Hypersegmented Neuts Not Reportable 10/04/20 05:41 Hyposegmented Neuts Not Reportable 10/04/20 05:41 Hypogranular Neuts Not Reportable 10/04/20 05:41 Smudge Cells Not Reportable 10/04/20 05:41 Toxic Granulation Not Reportable 10/04/20 05:41 Toxic Vacuolation Not Reportable 10/04/20 05:41 Dohle Bodies Not Reportable 10/04/20 05:41 Pelger-Huet Anomaly Not Reportable 10/04/20 05:41 [place] Rods Not Reportable 10/04/20 05:41 Platelet Estimate Consistent w auto 10/04/20 05:41 Clumped Platelets Not Reportable 10/04/20 05:41 Plt Clumps, EDTA Not Reportable 10/04/20 05:41 Large Platelets Not Reportable 10/04/20 05:41 Giant Platelets Not Reportable 10/04/20 05:41 Platelet Satelliting Not Reportable 10/04/20 05:41 Plt Morphology Comment Not Reportable 10/04/20 05:41 RBC Morphology Not Reportable 10/04/20 05:41 Dimorphic RBCs Not Reportable 10/04/20 05:41 Polychromasia Not Reportable 10/04/20 05:41 Hypochromasia Not Reportable 10/04/20 05:41 Poikilocytosis Not Reportable 10/04/20 05:41 Anisocytosis Not Reportable 10/04/20 05:41 Microcytosis Not Reportable 10/04/20 05:41 Macrocytosis Not Reportable 10/04/20 05:41 Spherocytes Not Reportable 10/04/20 05:41 Pappenheimer Bodies Not Reportable 10/04/20 05:41 Sickle Cells Not Reportable 10/04/20 05:41 Target Cells Not Reportable 10/04/20 05:41 Tear Drop Cells Not Reportable 10/04/20 05:41 Ovalocytes Not Reportable 10/04/20 05:41 Helmet Cells Not Reportable 10/04/20 05:41 [place] Bodies Not Reportable 10/04/20 05:41 [place] Rings Not Reportable 10/04/20 05:41 [place] Cells Few 10/04/20 05:41 Bite Cells Not Reportable 10/04/20 05:41 Crenated Cell Not Reportable 10/04/20 05:41 Elliptocytes Not Reportable 10/04/20 05:41 Acanthocytes (Spur) Not Reportable 10/04/20 05:41 Rouleaux Not Reportable 10/04/20 05:41 Hemoglobin C Crystals Not Reportable 10/04/20 05:41 Schistocytes Not Reportable 10/04/20 05:41 Malaria parasites Not Reportable 10/04/20 05:41 [place] Bodies Not Reportable 10/04/20 05:41 Hem Pathologist Commnt No 10/04/20 05:41 D-Dimer 963.03 ng/mlDDU (0-234) H 10/02/20 23:55 Sodium 139 mmol/L (137-145) 10/05/20 04:29 Potassium 4.9 mmol/L (3.6-5.0) 10/05/20 04:29 Chloride 106.3 mmol/L (98-107) 10/05/20 04:29 Carbon Dioxide 23 mmol/L (22-30) 10/05/20 04:29 Anion Gap 15 mmol/L 10/05/20 04:29 BUN 14 mg/dL (9-20) 10/05/20 04:29 Creatinine 1.0 mg/dL (0.8-1.3) 10/05/20 04:29 Estimated GFR > 60 ml/min 10/05/20 04:29 BUN/Creatinine Ratio 14 % 10/05/20 04:29 Glucose 136 mg/dL (75-100) H 10/05/20 04:29 POC Glucose 141 mg/dL (70-105) H 10/05/20 09:24 Lactic Acid 1.40 mmol/L (0.7-2.0) 10/03/20 05:34 Calcium 8.7 mg/dL (8.4-10.2) 10/05/20 04:29 Magnesium 2.30 mg/dL (1.7-2.3) 10/05/20 04:29 Ferritin 349.5 ng/mL (30.0-300.0) H 10/02/20 23:55 Total Bilirubin 1.70 mg/dL (0.1-1.2) H 10/02/20 23:36 AST 67 units/L (5-40) H 10/02/20 23:36 ALT 36 units/L (7-56) 10/02/20 23:36 Alkaline Phosphatase 66 units/L (35-129) 10/02/20 23:36 Lactate Dehydrogenase 554 units/L (91-180) H 10/02/20 23:55 Troponin T < 0.010 ng/mL (0.00-0.029) 10/02/20 23:55 C-Reactive Protein 5.60 mg/dL (0.00-1.30) H 10/02/20 23:55 Total Protein 7.3 g/dL (6.3-8.2) 10/02/20 23:36 Albumin 4.3 g/dL (3.9-5) 10/02/20 23:36 Albumin/Globulin Ratio 1.4 % 10/02/20 23:36 Procalcitonin 1.14 ng/mL (<0.15) 10/02/20 23:55 Urine Color Yellow (Yellow) 10/03/20 07:50 Urine Turbidity Clear (Clear) 10/03/20 07:50 Urine pH 5.0 (5.0-7.0) 10/03/20 07:50 Ur Specific [place] 1.034 (1.003-1.030) H 10/03/20 07:50 Urine Protein <15 mg/dl mg/dL (Negative) 10/03/20 07:50 Urine Glucose (UA) Neg mg/dL (Negative) 10/03/20 07:50 Urine Ketones Tr mg/dL (Negative) 10/03/20 07:50 Urine Blood Neg (Negative) 10/03/20 07:50 Urine Nitrite Neg (Negative) 10/03/20 07:50 Urine Bilirubin Neg (Negative) 10/03/20 07:50 Urine Urobilinogen < 2.0 mg/dL (<2.0) 10/03/20 07:50 Ur Leukocyte Esterase Neg (Negative) 10/03/20 07:50 Urine WBC (Auto) 0.0 /HPF (0.0-6.0) 10/03/20 07:50 Urine RBC (Auto) 1.0 /HPF (0.0-6.0) 10/03/20 07:50 Urine Mucus Few /HPF 10/03/20 07:50 Coronavirus (PCR) Negative (Negative) 10/03/20 Unknown Microbiology: Microbiology 10/02/20 23:55 Peripheral/Venous Blood Culture - Preliminary NO GROWTH AFTER 48 HOURS 10/03/20 00:12 Peripheral/Venous Blood Culture - Preliminary NO GROWTH AFTER 48 HOURS Ruiz/IV: Voiding Method Urinal Active Medications - Current Medications Current Medications: Generic Name Dose Route Start Last Admin Trade Name Freq PRN Reason Stop Dose Admin Acetaminophen 650 mg 10/03/20 02:15 10/05/20 01:19 Acetaminophen 325 Mg Tab PO 650 mg Q4H PRN Administration Fever >101 Al Hydrox/Mg Hydrox/Simethicone 15 ml 10/03/20 01:56 Alum-Mag Hydroxide-Simethicone [phone]/5ml Oral Liqd 30 Ml PO Q4H PRN Indigestion Albuterol 2.5 mg 10/03/20 01:45 10/04/20 13:40 Albuterol 2.5 Mg/3 Ml Nebu IH 2.5 mg Q4HRT PRN Administration Shortness Of Breath Arformoterol Tartrate 15 mcg 10/03/20 11:00 10/05/20 07:57 Arformoterol 15 Mcg/2 Ml Nebu IH 15 mcg Q12HRT DEBORAH Administration Azithromycin 500 mg 10/05/20 10:00 10/05/20 09:11 Azithromycin 250 Mg Tab PO 10/08/20 10:01 500 mg QDAY DEBORAH Administration Protocol Budesonide 0.25 mg 10/03/20 11:00 10/05/20 07:57 Budesonide 0.25 Mg/2 Ml Nebu IH 0.25 mg Q12HRT DEBORAH Administration Enoxaparin Sodium 40 mg 10/03/20 10:00 10/05/20 09:11 Enoxaparin 40 Mg/0.4 Ml Inj SUB-Q 40 mg DAILY DEBORAH Administration Protocol Guaifenesin 20 ml 10/04/20 00:02 10/05/20 09:14 Guaifenesin Dm 200/20 Mg Oral Liqd 10 Ml PO 20 ml BID PRN Administration Cough Hydralazine HCl 5 mg 10/03/20 01:47 10/04/20 14:15 Hydralazine 20 Mg/1 Ml Inj IV 5 mg Q4H PRN Administration Hypertension Sodium Chloride 1,000 mls @ 75 mls/hr 10/03/20 03:45 10/05/20 05:31 Nacl 0.9% 1000 Ml IV 75 mls/hr DIRECT DEBORAH Administration Ceftriaxone Sodium 2 gm in 100 mls @ 200 mls/hr 10/05/20 10:00 10/05/20 09:11 Rocephin/Ns 2 Gm/100 Ml IV 10/08/20 10:29 200 mls/hr Q24H DEBORAH Administration Protocol Lisinopril 40 mg 10/03/20 22:00 10/05/20 09:11 Lisinopril 40 Mg Tab PO 40 mg BID DEBORAH Administration Methylprednisolone Sodium Succinate 80 mg 10/04/20 14:00 10/05/20 05:30 Methylprednisolone Sod Succinate 125 Mg/2 Ml Inj IV 10/06/20 11:00 80 mg Q8HR DEBORAH Administration Methylprednisolone Sodium Succinate 40 mg 10/06/20 14:00 Methylprednisolone Sod Succinate 40 Mg/1 Ml Inj IV Q8HR DEBORAH Nicotine 14 mg 10/04/20 10:00 10/04/20 12:36 Nicotine 14 Mg/24 Hr Patch TD 14 mg QDAY DEBORAH Administration Ondansetron HCl 4 mg 10/03/20 01:56 Ondansetron 4 Mg/2 Ml Inj IV Q4H PRN Nausea And Vomiting Senna 8.6 mg 10/03/20 01:56 Sennosides 8.6 Mg Tab PO Q12H PRN Laxative Effect Tramadol HCl 50 mg 10/03/20 01:43 10/04/20 17:28 Tramadol 50 Mg Tab PO 50 mg Q4H PRN Administration Pain, Moderate (4-6) Trazodone HCl 50 mg 10/03/20 01:43 10/03/20 21:23 Trazodone 50 Mg Tab PO 50 mg QHS PRN Administration Insomnia
--- NOTE | 2020-10-05 10:37 | XRay Report ---
CHEST 1 VIEW INDICATION: resp failure. COMPARISON: 10/02/2020 FINDINGS: Support devices: None. Heart: Within normal limits. Lungs/Pleura: Mild interval improvement in the bilateral lung infiltrates is demonstrated. Significan t infiltration persists. No pleural effusion or pneumothorax. Additional findings: None. IMPRESSION: Mild improvement in the bilateral airspace disease. Signer Name: Shan Thomas Jr, MD Signed: 10/05/2020 10:33 AM Workstation Name: [id number]
--- NOTE | 2020-10-05 10:39 | Progress Note ---
Assessment and Plan 39 y/o male with acute respiratory failure secondary to bilateral airspace disease, initial concern for pneumonia and possibly covid. 1. Discussed with patient about the possiblity of bronch. Given smoking history and illicit drug use, not unreasonable to do. Patient will let me know tomorrow. 2. Incentive alda and proning will help with oxygenation no matter what 3. Abx therapy per ID, follow up repeat COVID. 4. Wean FiO2 for sats> 88% Guarded prognosis. Subjective Date of service: 10/05/20 Interval history: 1st COVID negative. ID asking for repeat. Per patient feels a little bit better. Still on HFNC. Awake and alert and appears comfortable. Does smoke cigarettes and weed. Per patient was seen at [facility] on Monday prior to this admission and was discharged to home. Per patient they did do a chest x-ray as well. Remainder is negative. Objective Vital Signs - 12hr 10/04/20 10/04/20 10/05/20 22:46 23:00 00:00 Temperature 97.8 F Pulse Rate 85 84 78 Pulse Rate [ Bilateral Throughout] Pulse Rate [ From Monitor] Respiratory 23 17 25 H Rate Respiratory Rate [Bilateral Throughout] Blood Pressure 150/85 150/85 150/93 O2 Sat by Pulse 96 94 97 Oximetry 10/05/20 10/05/20 10/05/20 00:10 01:00 02:00 Temperature Pulse Rate 90 92 H Pulse Rate [ 78 Bilateral Throughout] Pulse Rate [ From Monitor] Respiratory 22 32 H Rate Respiratory 20 Rate [Bilateral Throughout] Blood Pressure 164/83 157/87 O2 Sat by Pulse 95 97 94 Oximetry 10/05/20 10/05/20 10/05/20 03:00 04:00 04:01 Temperature 98.8 F Pulse Rate 86 82 80 Pulse Rate [ Bilateral Throughout] Pulse Rate [ From Monitor] Respiratory 23 25 H Rate Respiratory Rate [Bilateral Throughout] Blood Pressure 157/87 156/91 O2 Sat by Pulse 98 97 Oximetry 10/05/20 10/05/20 10/05/20 05:00 06:00 07:00 Temperature Pulse Rate 73 78 78 Pulse Rate [ Bilateral Throughout] Pulse Rate [ From Monitor] Respiratory 22 27 H 23 Rate Respiratory Rate [Bilateral Throughout] Blood Pressure 174/97 166/97 214/125 O2 Sat by Pulse 99 91 89 Oximetry 10/05/20 10/05/20 10/05/20 07:58 07:59 08:00 Temperature Pulse Rate 83 Pulse Rate [ 92 H Bilateral Throughout] Pulse Rate [ 82 From Monitor] Respiratory 19 Rate Respiratory 12 Rate [Bilateral Throughout] Blood Pressure 156/94 O2 Sat by Pulse 96 97 Oximetry 10/05/20 09:11 Temperature Pulse Rate 92 H Pulse Rate [ Bilateral Throughout] Pulse Rate [ From Monitor] Respiratory Rate Respiratory Rate [Bilateral Throughout] Blood Pressure 164/95 O2 Sat by Pulse Oximetry Constitutional: no acute distress, alert, other (on hiflo) ENT: oropharynx moist Neck: supple Effort: normal Ascultation: Bilateral: rhonchi Cardiovascular: regular rate and rhythm Gastrointestinal: normoactive bowel sounds, soft, non-tender, non-distended Integumentary: normal Extremities: no cyanosis CBC and BMP: 10/04/20 05:41 10/05/20 04:29 ABG, PT/INR, D-dimer: PT/INR, D-dimer D-Dimer 963.03 ng/mlDDU (0-234) H 10/02/20 23:55 Abnormal lab findings: Abnormal Labs 10/02/20 10/02/20 10/02/20 23:36 23:36 23:55 WBC 28.4 H RBC 5.20 H Hgb 16.1 H Hct 46.9 H Seg Neuts % (Manual) 82.0 H Lymphocytes % (Manual) 6.0 L Seg Neutrophils # Man 23.3 H Monocytes # (Manual) 0.9 H D-Dimer 963.03 H Chloride Carbon Dioxide 21 L Glucose 116 H POC Glucose Lactic Acid Ferritin Total Bilirubin 1.70 H AST 67 H Lactate Dehydrogenase C-Reactive Protein Ur Specific [place] 10/02/20 10/02/20 10/03/20 23:55 23:55 00:52 WBC RBC Hgb Hct Seg Neuts % (Manual) Lymphocytes % (Manual) Seg Neutrophils # Man Monocytes # (Manual) D-Dimer Chloride Carbon Dioxide Glucose 105 H POC Glucose Lactic Acid 3.10 H* Ferritin 349.5 H Total Bilirubin AST Lactate Dehydrogenase 554 H C-Reactive Protein 5.60 H Ur Specific [place] 10/03/20 10/04/20 10/04/20 07:50 05:41 05:41 WBC 21.4 H RBC Hgb Hct Seg Neuts % (Manual) 83.0 H Lymphocytes % (Manual) 12.0 L Seg Neutrophils # Man 17.8 H Monocytes # (Manual) 1.1 H D-Dimer Chloride 107.6 H Carbon Dioxide Glucose 101 H POC Glucose Lactic Acid Ferritin Total Bilirubin AST Lactate Dehydrogenase C-Reactive Protein Ur Specific [place] 1.034 H 10/04/20 10/04/20 10/05/20 16:42 21:43 04:29 WBC RBC Hgb Hct Seg Neuts % (Manual) Lymphocytes % (Manual) Seg Neutrophils # Man Monocytes # (Manual) D-Dimer Chloride Carbon Dioxide Glucose 136 H POC Glucose 137 H 161 H Lactic Acid Ferritin Total Bilirubin AST Lactate Dehydrogenase C-Reactive Protein Ur Specific [place] 10/05/20 09:24 WBC RBC Hgb Hct Seg Neuts % (Manual) Lymphocytes % (Manual) Seg Neutrophils # Man Monocytes # (Manual) D-Dimer Chloride Carbon Dioxide Glucose POC Glucose 141 H Lactic Acid Ferritin Total Bilirubin AST Lactate Dehydrogenase C-Reactive Protein Ur Specific [place]
[2020-10-05] MEDS: hydrALAZINE 20 MG/1 ML INJ IV PRN ×2 (12:39→17:56)
--- NOTE | 2020-10-05 12:43 | Progress Note ---
Assessment and Plan Cultures: Blood culture 10/03/2020 no growth today Assessment: 39 years old male with history of tobacco abuse, asthma, hypertension, obesity admitted on 10/02/2020 secondary to a week history of coug h, shortness of breath, nasal congestion, wheezing associated with body aches and fever/chills: #Severe sepsis: Present on admission with fever, tachycardia, hypoxia, elevated lactate, leukocytosis; likely secondary to bilateral pneumonia #Bilateral pneumonia: Of unclear etiology. Likely associated with asthma exacerbation. SARS-CoV-2 PCR negative. Noted elevated D-dimer at night 63, mild elevated ferritin, CRP. Procalcitonin 0.1. Likely represent community- acquired pneumonia/legionnaires however should rule out COVID-19 infection. CTA shows extensive bilateral pneumonia no PE. Legs ultrasound no DVT. #Acute hypoxemic respiratory failure: Now on salter nasal cannula #Tobacco abuse #Asthma exacerbation #Transaminitis: Mild. Recommendations: -Repeat SARS-CoV-2 PCR pending -Continue ceftriaxone 2 g IV once a day total 5 days D2 of 5 -Continue azithromycin 500 g IV/PO once a day total 5 days D2 of 5 -Obtain Legionella urine antigen and strep urine ag, pending -If repeat SARS-CoV-2 PCR is positive start dexamethasone and remdesivir -Obtain HIV testing, consent in chart -Agree with possible bronchoscopy/BAL -AFB x 3 ordered -QuantiFERON TB Gold ordered Will follow. Filomena Powers MD Infectious Diseases Bale Tie Machine Operator [facility]) M [phone] O [phone] Subjective Date of service: 10/05/20 Principal diagnosis: Bilateral pneumonia Interval history: Feels better remains on Sal[place] nasal cannula, no fever Objective - Exam Narrative Exam: General appearance: Alert in no acute distress on Sal[place] Eyes: anicteric sclerae, moist conjunctivae; no lid-lag; PERRLA HENT: Normocephalic, Atraumatic; normal external ears, nares open, oropharynx clear Neck: supple, tracheal midline, no JVD Lungs: Bilateral rhonchi CV: RRR no murmur Abdomen: Soft, non-tender Extremities: no edema, no cyanosis Skin: No rash. Psych: no agitated Neuro: alert and oriented x 3. Moving all extermities - Constitutional Vitals: Vital Signs Temp Pulse Resp BP Pulse Ox 98.8 F 92 H 22 164/95 97 10/05/20 04:00 10/05/20 09:11 10/05/20 08:00 10/05/20 09:11 10/05/20 08:00 Temperature -Last 24 Hours Temperature 98.8 F Temperature 97.8 F Temperature 99.2 F Temperature 98.7 F - Labs CBC & Chem 7: 10/04/20 05:41 10/05/20 04:29 Labs: Abnormal lab results 10/04/20 10/04/20 10/05/20 Range/Units 16:42 21:43 04:29 Glucose 136 H (75-100) mg/dL POC Glucose 137 H 161 H (70-105) mg/dL 10/05/20 10/05/20 Range/Units 09:24 11:37 Glucose (75-100) mg/dL POC Glucose 141 H 115 H (70-105) mg/dL
[2020-10-05] MEDS: traMADol 50 MG TAB PO PRN (23:36)
[2020-10-06] MEDS: hydrALAZINE 20 MG/1 ML INJ IV PRN ×2 (01:52→19:15)
[2020-10-06] MEDS: guaiFENesin 100 MG/5 ML ORAL LIQD PO PRN ×2 (05:20→20:40)
[2020-10-06] MEDS: methylPREDNISolone Sod Succinate 125 MG/2 ML INJ IV SCH (05:22)
[2020-10-06] MEDS: ARFORMOTEROL 15 MCG/2 ML NEBU IH SCH ×3 (08:34→19:24)
[2020-10-06] MEDS: BUDESONIDE 0.25 MG/2 ML NEBU IH SCH (08:34)
--- NOTE | 2020-10-06 09:02 | Progress Note ---
Assessment and Plan Cultures: Blood culture 10/03/2020 no growth today Assessment: 39 years old male with history of tobacco abuse, asthma, hypertension, obesity admitted on 10/02/2020 secondary to a week history of coug h, shortness of breath, nasal congestion, wheezing associated with body aches and fever/chills: #Severe sepsis: Fever resolved, procalcitonin worsening 1.1-->4.3, leukocytosis; likely secondary to bilateral pneumonia #Bilateral pneumonia: Of unclear etiology. Likely associated with asthma exacerbation. SARS-CoV-2 PCR negative. HIV rapid test neg. Noted elevated D- dimer at night 63, mild elevated ferritin, CRP. Likely represent community- acquired pneumonia/legionnaires however should rule out COVID-19 infection. CTA shows extensive bilateral pneumonia no PE. Legs ultrasound no DVT. #Acute hypoxemic respiratory failure: Remains on salter 10 L. #Tobacco abuse #Asthma exacerbation #Transaminitis: Mild. Recommendations: -Appreciate Dr. Stock considering bronchoscopy/BAL -AFB x3 ordered -QuantiFERON TB Gold ordered -Repeat SARS-CoV-2 PCR pending/spoke with nursing staff -Continue ceftriaxone 2 g IV once a day total 5 days D3 of 5 -Continue azithromycin 500 g IV/PO once a day total 5 days D3 of 5 -Obtain Legionella urine antigen and strep urine ag, pending -If repeat SARS-CoV-2 PCR is positive start dexamethasone and remdesivir Will follow. Discussed with Dr. Dayami Powers MD Infectious Diseases Medical Legal Investigator [facility] ([facility]) M [phone] O [phone] Subjective Date of service: 10/06/20 Principal diagnosis: Bilateral pneumonia Interval history: Feels okay, complaining of cough, remains on salter nasal cannula 10 L no fever Objective - Exam Narrative Exam: General appearance: Alert in no acute distress on [place] Eyes: anicteric sclerae, moist conjunctivae; no lid-lag; PERRLA HENT: Normocephalic, Atraumatic; normal external ears, nares open, oropharynx clear Neck: supple, tracheal midline, no JVD Lungs: Bilateral rhonchi CV: RRR no murmur Abdomen: Soft, non-tender Extremities: no edema, no cyanosis Skin: No rash. Psych: no agitated Neuro: alert and oriented x 3. Moving all extermities - Constitutional Vitals: Vital Signs Temp Pulse Resp BP Pulse Ox 99.0 F 89 16 220/106 95 10/06/20 04:00 10/06/20 08:27 10/06/20 08:27 10/06/20 08:01 10/06/20 08:35 Temperature -Last 24 Hours Temperature 99.0 F Temperature 99.1 F Temperature 99.1 F Temperature 98.2 F - Labs CBC & Chem 7: 10/04/20 05:41 10/05/20 04:29 Labs: Abnormal lab results 10/05/20 10/05/20 10/05/20 Range/Units 09:24 11:37 13:31 POC Glucose 141 H 115 H (70-105) mg/dL NT-Pro-B Natriuret Pep 1122 H (0-450) pg/mL 10/05/20 10/05/20 Range/Units 17:13 23:26 POC Glucose 135 H 135 H (70-105) mg/dL NT-Pro-B Natriuret Pep (0-450) pg/mL
[2020-10-06] MEDS: SODIUM CHLORIDE 0.9% 1000 ML 1,000 ML IV SCH ×2 (09:38→21:01)
[2020-10-06] MEDS: LISINOPRIL 40 MG TAB PO SCH ×2 (09:39→21:02)
[2020-10-06] MEDS: ENOXAPARIN 40 MG/0.4 ML INJ SUB-Q SCH (09:39)
[2020-10-06] MEDS: NICOTINE 14 MG/24 HR PATCH TD SCH (09:39)
[2020-10-06] MEDS: AZITHROMYCIN 250 MG TAB PO SCH (09:39)
[2020-10-06] MEDS: cefTRIAXone/NS 2 GM/100 ML 2 GM/100 ML BAG IV SCH (09:40)
--- NOTE | 2020-10-06 10:52 | Progress Note ---
Assessment and Plan Assessment and plan: COVID-19 test negative x 2 [10/03/2020 and 10/06/2020] --Acute hypoxic respiratory failure; requiring 10 L nasal cannula oxygen Wean as tolerated, titrate O2 sats more than 90%, nebulizers, IV steroids, IV antibiotics, inhalation steroids Pulmonary following --Severe sepsis, POA; Secondary to bilateral pneumonia, high procalcitonin levels Continue IV antibiotics, follow cultures --Bilateral pneumonia: Procalcitonin levels high Continue IV antibiotics follow cultures. --Acute bronchial asthma: exacerbation Oxygen, nebulizers, IV steroids, supportive care --Elevated D-dimer; CTA negative for PE --Hypertension; moderate control Continue current antihypertensives and as needed medications --Ongoing tobacco : Smoking cessation counseling, advised nicotine patch --DVT prophylaxis; Lovenox --Obesity; BMI 37.1 Strongly advised weight reduction, dietary modification, exercise as tolerated Lifestyle changes when medically stable Closely monitor the patient and adjust management as needed Plan of care reviewed with the patient and his nurse Medical Lab Assistant recommendations noted and appreciated. Brief history; 39-year-old obese male patient with acute hypoxic respiratory failure secondary to bilateral airspace disease was admitted through emergency room with worsening shortness of breath, possible pneumonia versus atypical pneumonia/Covid COVID-19 test x 2 negative , 10/03/2020 and 10/06/2020. Pulmonary planning bronchoscopy 10/03/2020. Continue IV antibiotics for now and follow-up procalcitonin. Add steroids for asthma exacerbation. Continue bronchodilators. Continue BiPAP 12/6 and FiO2 100%. Pulmonary and ID consultations pending. 10/04/2020. Patient still with significant respiratory failure with etiology secondary to likely community-acquired pneumonia and acute asthma exacerbation. Covid testing negative. Start IV steroids and monitor closely. Continue IV antibiotics and follow-up chest x-ray in a.m. Patient counseled on tobacco cessation. Patient still requiring high flow nasal cannula 15 L/min. Continue to wean oxygen as tolerated. Patient will remain in IMCU due to high risk of decompensation given respiratory status. 10/05/2020. Patient still with significant respiratory failure with etiology secondary to likely community-acquired pneumonia and acute asthma exacerbation. Covid testing negative. Continue Solu-Medrol 40 mg IV every 8 hours. Patient still requiring high flow nasal cannula 15 L/min. Continue to wean oxygen as tolerated. Patient will remain in IMCU due to high risk of decompensation given respiratory status. Continue IV antibiotics and follow-up chest x-ray. 10/06/2020; pending repeat Covid test today, possible bronchoscopy when patient makes a decision Patient is still requiring high flow oxygen, wean as tolerated COVID-19 test x2 negative, pulmonary planning bronchoscopy History Interval history: I seen and examined the patient at the bedside in IMCU this morning Patient's chart and medications reviewed patient has been complaining of Mild shortness of breath, anxious to go home Hospitalist Physical - Constitutional Vitals: Temp Pulse Resp BP Pulse Ox 99.0 F 91 H 16 154/93 95 10/06/20 04:00 10/06/20 09:39 10/06/20 08:27 10/06/20 09:39 10/06/20 08:35 General appearance: Present: no acute distress, well-nourished, obese - EENT Eyes: Present: PERRL, EOM intact - Neck Neck: Present: supple, normal ROM - Respiratory Respiratory effort: normal Respiratory: bilateral: diminished, rhonchi, negative: rales, wheezing - Cardiovascular Rhythm: regular Heart Sounds: Present: S1 & S2 - Extremities Extremities: no ischemia, No edema - Abdominal General gastrointestinal: soft, non-tender, non-distended, normal bowel sounds - Integumentary Integumentary: Present: clear, warm - Psychiatric Psychiatric: appropriate mood/affect, cooperative - Neurologic Neurologic: CNII-XII intact, moves all extremities HEART Score - HEART Score Troponin: Troponin T < 0.010 ng/mL (0.00-0.029) 10/02/20 23:55 Results - Labs CBC & Chem 7: 10/04/20 05:41 10/05/20 04:29 Labs: Laboratory Last Values WBC 21.4 K/mm3 (4.5-11.0) H 10/04/20 05:41 RBC 4.71 M/mm3 (3.65-5.03) 10/04/20 05:41 Hgb 14.3 gm/dl (11.8-15.2) 10/04/20 05:41 Hct 43.3 % (35.5-45.6) 10/04/20 05:41 MCV 92 fl (84-94) 10/04/20 05:41 MCH 30 pg (28-32) 10/04/20 05:41 MCHC 33 % (32-34) 10/04/20 05:41 RDW 15.1 % (13.2-15.2) 10/04/20 05:41 Plt Count 219 K/mm3 (140-440) 10/04/20 05:41 Add Manual Diff Complete 10/04/20 05:41 Total Counted 100 10/04/20 05:41 Seg Neutrophils % [employer] 10/02/20 23:36 Seg Neuts % (Manual) 83.0 % (40.0-70.0) H 10/04/20 05:41 Band Neutrophils % 9.0 % 10/02/20 23:36 Lymphocytes % (Manual) 12.0 % (13.4-35.0) L 10/04/20 05:41 Monocytes % (Manual) 5.0 % (0.0-7.3) 10/04/20 05:41 Nucleated RBC % Not Reportable 10/04/20 05:41 Seg Neutrophils # Man 17.8 K/mm3 (1.8-7.7) H 10/04/20 05:41 Band Neutrophils # 0.0 K/mm3 10/04/20 05:41 Lymphocytes # (Manual) 2.6 K/mm3 (1.2-5.4) 10/04/20 05:41 Abs React Lymphs (Man) 0.0 K/mm3 10/04/20 05:41 Monocytes # (Manual) 1.1 K/mm3 (0.0-0.8) H 10/04/20 05:41 Eosinophils # (Manual) 0.0 K/mm3 (0.0-0.4) 10/04/20 05:41 Basophils # (Manual) 0.0 K/mm3 (0.0-0.1) 10/04/20 05:41 Metamyelocytes # 0.0 K/mm3 10/04/20 05:41 Myelocytes # 0.0 K/mm3 10/04/20 05:41 Promyelocytes # 0.0 K/mm3 10/04/20 05:41 Blast Cells # 0.0 K/mm3 10/04/20 05:41 WBC Morphology Not Reportable 10/04/20 05:41 Hypersegmented Neuts Not Reportable 10/04/20 05:41 Hyposegmented Neuts Not Reportable 10/04/20 05:41 Hypogranular Neuts Not Reportable 10/04/20 05:41 Smudge Cells Not Reportable 10/04/20 05:41 Toxic Granulation Not Reportable 10/04/20 05:41 Toxic Vacuolation Not Reportable 10/04/20 05:41 Dohle Bodies Not Reportable 10/04/20 05:41 Pelger-Huet Anomaly Not Reportable 10/04/20 05:41 [place] Rods Not Reportable 10/04/20 05:41 Platelet Estimate Consistent w auto 10/04/20 05:41 Clumped Platelets Not Reportable 10/04/20 05:41 Plt Clumps, EDTA Not Reportable 10/04/20 05:41 Large Platelets Not Reportable 10/04/20 05:41 Giant Platelets Not Reportable 10/04/20 05:41 Platelet Satelliting Not Reportable 10/04/20 05:41 Plt Morphology Comment Not Reportable 10/04/20 05:41 RBC Morphology Not Reportable 10/04/20 05:41 Dimorphic RBCs Not Reportable 10/04/20 05:41 Polychromasia Not Reportable 10/04/20 05:41 Hypochromasia Not Reportable 10/04/20 05:41 Poikilocytosis Not Reportable 10/04/20 05:41 Anisocytosis Not Reportable 10/04/20 05:41 Microcytosis Not Reportable 10/04/20 05:41 Macrocytosis Not Reportable 10/04/20 05:41 Spherocytes Not Reportable 10/04/20 05:41 Pappenheimer Bodies Not Reportable 10/04/20 05:41 Sickle Cells Not Reportable 10/04/20 05:41 Target Cells Not Reportable 10/04/20 05:41 Tear Drop Cells Not Reportable 10/04/20 05:41 Ovalocytes Not Reportable 10/04/20 05:41 Helmet Cells Not Reportable 10/04/20 05:41 [place] Bodies Not Reportable 10/04/20 05:41 [place] Rings Not Reportable 10/04/20 05:41 [place] Cells Few 10/04/20 05:41 Bite Cells Not Reportable 10/04/20 05:41 Crenated Cell Not Reportable 10/04/20 05:41 Elliptocytes Not Reportable 10/04/20 05:41 Acanthocytes (Spur) Not Reportable 10/04/20 05:41 Rouleaux Not Reportable 10/04/20 05:41 Hemoglobin C Crystals Not Reportable 10/04/20 05:41 Schistocytes Not Reportable 10/04/20 05:41 Malaria parasites Not Reportable 10/04/20 05:41 [place] Bodies Not Reportable 10/04/20 05:41 Hem Pathologist Commnt No 10/04/20 05:41 D-Dimer 963.03 ng/mlDDU (0-234) H 10/02/20 23:55 Sodium 139 mmol/L (137-145) 10/05/20 04:29 Potassium 4.9 mmol/L (3.6-5.0) 10/05/20 04:29 Chloride 106.3 mmol/L (98-107) 10/05/20 04:29 Carbon Dioxide 23 mmol/L (22-30) 10/05/20 04:29 Anion Gap 15 mmol/L 10/05/20 04:29 BUN 14 mg/dL (9-20) 10/05/20 04:29 Creatinine 1.0 mg/dL (0.8-1.3) 10/05/20 04:29 Estimated GFR > 60 ml/min 10/05/20 04:29 BUN/Creatinine Ratio 14 % 10/05/20 04:29 Glucose 136 mg/dL (75-100) H 10/05/20 04:29 POC Glucose 135 mg/dL (70-105) H 10/05/20 23:26 Lactic Acid 1.40 mmol/L (0.7-2.0) 10/03/20 05:34 Calcium 8.7 mg/dL (8.4-10.2) 10/05/20 04:29 Magnesium 2.30 mg/dL (1.7-2.3) 10/05/20 04:29 Ferritin 349.5 ng/mL (30.0-300.0) H 10/02/20 23:55 Total Bilirubin 1.70 mg/dL (0.1-1.2) H 10/02/20 23:36 AST 67 units/L (5-40) H 10/02/20 23:36 ALT 36 units/L (7-56) 10/02/20 23:36 Alkaline Phosphatase 66 units/L (35-129) 10/02/20 23:36 Lactate Dehydrogenase 554 units/L (91-180) H 10/02/20 23:55 Troponin T < 0.010 ng/mL (0.00-0.029) 10/02/20 23:55 C-Reactive Protein 5.60 mg/dL (0.00-1.30) H 10/02/20 23:55 NT-Pro-B Natriuret Pep 1122 pg/mL (0-450) H 10/05/20 13:31 Total Protein 7.3 g/dL (6.3-8.2) 10/02/20 23:36 Albumin 4.3 g/dL (3.9-5) 10/02/20 23:36 Albumin/Globulin Ratio 1.4 % 10/02/20 23:36 Procalcitonin 4.38 ng/mL (<0.15) 10/05/20 14:17 Urine Color Yellow (Yellow) 10/03/20 07:50 Urine Turbidity Clear (Clear) 10/03/20 07:50 Urine pH 5.0 (5.0-7.0) 10/03/20 07:50 Ur Specific [place] 1.034 (1.003-1.030) H 10/03/20 07:50 Urine Protein <15 mg/dl mg/dL (Negative) 10/03/20 07:50 Urine Glucose (UA) Neg mg/dL (Negative) 10/03/20 07:50 Urine Ketones Tr mg/dL (Negative) 10/03/20 07:50 Urine Blood Neg (Negative) 10/03/20 07:50 Urine Nitrite Neg (Negative) 10/03/20 07:50 Urine Bilirubin Neg (Negative) 10/03/20 07:50 Urine Urobilinogen < 2.0 mg/dL (<2.0) 10/03/20 07:50 Ur Leukocyte Esterase Neg (Negative) 10/03/20 07:50 Urine WBC (Auto) 0.0 /HPF (0.0-6.0) 10/03/20 07:50 Urine RBC (Auto) 1.0 /HPF (0.0-6.0) 10/03/20 07:50 Urine Mucus Few /HPF 10/03/20 07:50 Coronavirus (PCR) Negative (Negative) 10/03/20 Unknown HIV 1&2 Antibody Rapid Non react (Non React) 10/05/20 13:31 HIV P24 Antigen Non react (Non React) 10/05/20 13:31 Microbiology: Microbiology 10/02/20 23:55 Peripheral/Venous Blood Culture - Preliminary NO GROWTH AFTER 72 HOURS 10/03/20 00:12 Peripheral/Venous Blood Culture - Preliminary NO GROWTH AFTER 72 HOURS Ruiz/IV: Voiding Method Urinal Active Medications - Current Medications Current Medications: Generic Name Dose Route Start Last Admin Trade Name Freq PRN Reason Stop Dose Admin Acetaminophen 650 mg 10/03/20 02:15 10/05/20 20:01 Acetaminophen 325 Mg Tab PO 650 mg Q4H PRN Administration Fever >101 Al Hydrox/Mg Hydrox/Simethicone 15 ml 10/03/20 01:56 Alum-Mag Hydroxide-Simethicone [id number]/5ml Oral Liqd 30 Ml PO Q4H PRN Indigestion Albuterol 2.5 mg 10/03/20 01:45 10/04/20 13:40 Albuterol 2.5 Mg/3 Ml Nebu IH 2.5 mg Q4HRT PRN Administration Shortness Of Breath Arformoterol Tartrate 15 mcg 10/03/20 11:00 10/06/20 08:34 Arformoterol 15 Mcg/2 Ml Nebu IH 15 mcg Q12HRT DEBORAH Administration Azithromycin 500 mg 10/05/20 10:00 10/06/20 09:39 Azithromycin 250 Mg Tab PO 10/08/20 10:01 500 mg QDAY DEBORAH Administration Protocol Budesonide 0.5 mg 10/06/20 09:30 Budesonide 0.5 Mg/2 Ml Nebu IH Q12HRT [facility] Enoxaparin Sodium 40 mg 10/03/20 10:00 10/06/20 09:39 Enoxaparin 40 Mg/0.4 Ml Inj SUB-Q 40 mg DAILY [facility] Administration Protocol Guaifenesin 200 mg 10/06/20 04:44 10/06/20 05:20 Guaifenesin 100 Mg/5 Ml Oral Liqd PO 200 mg Q4H PRN Administration Cough Hydralazine HCl 5 mg 10/03/20 01:47 10/06/20 01:52 Hydralazine 20 Mg/1 Ml Inj IV 5 mg Q4H PRN Administration Hypertension Sodium Chloride 1,000 mls @ 75 mls/hr 10/03/20 03:45 10/06/20 09:38 Nacl 0.9% 1000 Ml IV 75 mls/hr DIRECT DEBORAH Administration Ceftriaxone Sodium 2 gm in 100 mls @ 200 mls/hr 10/05/20 10:00 10/06/20 09:40 Rocephin/Ns 2 Gm/100 Ml IV 10/08/20 10:29 200 mls/hr Q24H DEBORAH Administration Protocol Lisinopril 40 mg 10/03/20 22:00 10/06/20 09:39 Lisinopril 40 Mg Tab PO 40 mg BID DEBORAH Administration Methylprednisolone Sodium Succinate 80 mg 10/04/20 14:00 10/06/20 05:22 Methylprednisolone Sod Succinate 125 Mg/2 Ml Inj IV 10/06/20 11:00 80 mg Q8HR DEBORAH Administration Methylprednisolone Sodium Succinate 40 mg 10/06/20 14:00 Methylprednisolone Sod Succinate 40 Mg/1 Ml Inj IV Q8HR DEBORAH Nicotine 14 mg 10/04/20 10:00 10/06/20 09:39 Nicotine 14 Mg/24 Hr Patch TD 14 mg QDAY DEBORAH Administration Ondansetron HCl 4 mg 10/03/20 01:56 Ondansetron 4 Mg/2 Ml Inj IV Q4H PRN Nausea And Vomiting Senna 8.6 mg 10/03/20 01:56 Sennosides 8.6 Mg Tab PO Q12H PRN Laxative Effect Tramadol HCl 50 mg 10/03/20 01:43 10/05/20 23:36 Tramadol 50 Mg Tab PO 50 mg Q4H PRN Administration Pain, Moderate (4-6) Trazodone HCl 50 mg 10/03/20 01:43 10/03/20 21:23 Trazodone 50 Mg Tab PO 50 mg QHS PRN Administration Insomnia
--- NOTE | 2020-10-06 11:12 | Progress Note ---
Assessment and Plan 39 y/o male with acute respiratory failure secondary to bilateral airspace disease, initial concern for pneumonia and possibly covid. 10/06/20: Await repeat COVID test. If negative then will ask patient his decision about bronch. For now, continue supportive measures. 1. Discussed with patient about the possiblity of bronch. Given smoking history and illicit drug use, not unreasonable to do. Patient will let me know tomorrow. 2. Incentive alda and proning will help with oxygenation no matter what 3. Abx therapy per ID, follow up repeat COVID. 4. Wean FiO2 for sats> 88% Guarded prognosis. Subjective Date of service: 10/06/20 Principal diagnosis: Bilateral pneumonia Interval history: No acute events. Still on 10 liters. COVID not sent yesterday, so will send today. ID continues to follow as well. Objective Vital Signs - 12hr 10/05/20 10/05/20 10/06/20 23:13 23:36 00:00 Temperature 99.1 F Pulse Rate Pulse Rate [ Bilateral Throughout] Pulse Rate [ 95 H From Monitor] Respiratory 20 12 Rate Respiratory Rate [Bilateral Throughout] Blood Pressure 144/100 O2 Sat by Pulse 96 94 Oximetry 10/06/20 10/06/20 10/06/20 00:01 01:00 01:52 Temperature Pulse Rate 85 85 78 Pulse Rate [ Bilateral Throughout] Pulse Rate [ From Monitor] Respiratory 42 H 15 Rate Respiratory Rate [Bilateral Throughout] Blood Pressure 149/107 184/112 194/104 O2 Sat by Pulse 92 91 Oximetry 10/06/20 10/06/20 10/06/20 02:00 02:01 03:00 Temperature Pulse Rate 95 H 76 76 Pulse Rate [ Bilateral Throughout] Pulse Rate [ From Monitor] Respiratory 20 22 Rate Respiratory Rate [Bilateral Throughout] Blood Pressure 191/107 180/112 O2 Sat by Pulse 92 94 Oximetry 10/06/20 10/06/20 10/06/20 04:00 04:01 05:01 Temperature 99.0 F Pulse Rate 85 79 Pulse Rate [ Bilateral Throughout] Pulse Rate [ 88 From Monitor] Respiratory 32 H 30 H 37 H Rate Respiratory Rate [Bilateral Throughout] Blood Pressure 189/103 170/95 O2 Sat by Pulse 95 92 89 Oximetry 10/06/20 10/06/20 10/06/20 06:00 07:00 08:00 Temperature Pulse Rate 75 74 100 H Pulse Rate [ Bilateral Throughout] Pulse Rate [ 100 H From Monitor] Respiratory 36 H 20 20 Rate Respiratory Rate [Bilateral Throughout] Blood Pressure 178/108 184/102 O2 Sat by Pulse 91 95 98 Oximetry 10/06/20 10/06/20 10/06/20 08:01 08:27 08:35 Temperature Pulse Rate 99 H Pulse Rate [ 89 Bilateral Throughout] Pulse Rate [ From Monitor] Respiratory 25 H Rate Respiratory 16 Rate [Bilateral Throughout] Blood Pressure 220/106 O2 Sat by Pulse 94 95 Oximetry 10/06/20 09:39 Temperature Pulse Rate 91 H Pulse Rate [ Bilateral Throughout] Pulse Rate [ From Monitor] Respiratory Rate Respiratory Rate [Bilateral Throughout] Blood Pressure 154/93 O2 Sat by Pulse Oximetry Constitutional: no acute distress, alert, other (on hiflo) ENT: oropharynx moist Neck: supple Effort: normal Ascultation: Bilateral: rhonchi Cardiovascular: regular rate and rhythm Gastrointestinal: normoactive bowel sounds, soft, non-tender, non-distended Integumentary: normal Extremities: no cyanosis CBC and BMP: 10/04/20 05:41 10/05/20 04:29 ABG, PT/INR, D-dimer: PT/INR, D-dimer D-Dimer 963.03 ng/mlDDU (0-234) H 10/02/20 23:55 Abnormal lab findings: Abnormal Labs 10/02/20 10/02/20 10/02/20 23:36 23:36 23:55 WBC 28.4 H RBC 5.20 H Hgb 16.1 H Hct 46.9 H Seg Neuts % (Manual) 82.0 H Lymphocytes % (Manual) 6.0 L Seg Neutrophils # Man 23.3 H Monocytes # (Manual) 0.9 H D-Dimer 963.03 H Chloride Carbon Dioxide 21 L Glucose 116 H POC Glucose Lactic Acid Ferritin Total Bilirubin 1.70 H AST 67 H Lactate Dehydrogenase C-Reactive Protein NT-Pro-B Natriuret Pep Ur Specific [place] 10/02/20 10/02/20 10/03/20 23:55 23:55 00:52 WBC RBC Hgb Hct Seg Neuts % (Manual) Lymphocytes % (Manual) Seg Neutrophils # Man Monocytes # (Manual) D-Dimer Chloride Carbon Dioxide Glucose 105 H POC Glucose Lactic Acid 3.10 H* Ferritin 349.5 H Total Bilirubin AST Lactate Dehydrogenase 554 H C-Reactive Protein 5.60 H NT-Pro-B Natriuret Pep Ur Specific [place] 10/03/20 10/04/20 10/04/20 07:50 05:41 05:41 WBC 21.4 H RBC Hgb Hct Seg Neuts % (Manual) 83.0 H Lymphocytes % (Manual) 12.0 L Seg Neutrophils # Man 17.8 H Monocytes # (Manual) 1.1 H D-Dimer Chloride 107.6 H Carbon Dioxide Glucose 101 H POC Glucose Lactic Acid Ferritin Total Bilirubin AST Lactate Dehydrogenase C-Reactive Protein NT-Pro-B Natriuret Pep Ur Specific [place] 1.034 H 10/04/20 10/04/20 10/05/20 16:42 21:43 04:29 WBC RBC Hgb Hct Seg Neuts % (Manual) Lymphocytes % (Manual) Seg Neutrophils # Man Monocytes # (Manual) D-Dimer Chloride Carbon Dioxide Glucose 136 H POC Glucose 137 H 161 H Lactic Acid Ferritin Total Bilirubin AST Lactate Dehydrogenase C-Reactive Protein NT-Pro-B Natriuret Pep Ur Specific [place] 10/05/20 10/05/20 10/05/20 09:24 11:37 13:31 WBC RBC Hgb Hct Seg Neuts % (Manual) Lymphocytes % (Manual) Seg Neutrophils # Man Monocytes # (Manual) D-Dimer Chloride Carbon Dioxide Glucose POC Glucose 141 H 115 H Lactic Acid Ferritin Total Bilirubin AST Lactate Dehydrogenase C-Reactive Protein NT-Pro-B Natriuret Pep 1122 H Ur Specific [place] 10/05/20 10/05/20 17:13 23:26 WBC RBC Hgb Hct Seg Neuts % (Manual) Lymphocytes % (Manual) Seg Neutrophils # Man Monocytes # (Manual) D-Dimer Chloride Carbon Dioxide Glucose POC Glucose 135 H 135 H Lactic Acid Ferritin Total Bilirubin AST Lactate Dehydrogenase C-Reactive Protein NT-Pro-B Natriuret Pep Ur Specific [place]
[2020-10-06] MEDS: methylPREDNISolone Sod Succinate 40 MG/1 ML INJ IV SCH ×2 (14:00→21:02)
[2020-10-06] MEDS: ACETAMINOPHEN 325 MG TAB PO PRN (14:05)
[2020-10-06] MEDS: BUDESONIDE 0.5 MG/2 ML NEBU IH SCH (19:24)
[2020-10-07] MEDS: traMADol 50 MG TAB PO PRN ×4 (02:55→21:23)
[2020-10-07] MEDS: guaiFENesin 100 MG/5 ML ORAL LIQD PO PRN ×4 (02:55→21:21)
[2020-10-07] MEDS: traZODone 50 MG TAB PO PRN ×2 (02:56→21:23)
[2020-10-07] MEDS: methylPREDNISolone Sod Succinate 40 MG/1 ML INJ IV SCH ×3 (06:36→21:21)
[2020-10-07] MEDS: BUDESONIDE 0.5 MG/2 ML NEBU IH SCH ×3 (08:50→23:43)
[2020-10-07] MEDS: ARFORMOTEROL 15 MCG/2 ML NEBU IH SCH ×2 (08:54→23:43)
[2020-10-07] MEDS: ACETAMINOPHEN 325 MG TAB PO PRN (09:22)
[2020-10-07] MEDS: NICOTINE 14 MG/24 HR PATCH TD SCH (09:22)
[2020-10-07] MEDS: cefTRIAXone/NS 2 GM/100 ML 2 GM/100 ML BAG IV SCH (09:23)
[2020-10-07] MEDS: LISINOPRIL 40 MG TAB PO SCH ×2 (09:23→21:22)
[2020-10-07] MEDS: AZITHROMYCIN 250 MG TAB PO SCH (09:23)
[2020-10-07] MEDS: ENOXAPARIN 40 MG/0.4 ML INJ SUB-Q SCH (09:23)
--- NOTE | 2020-10-07 10:52 | Progress Note ---
Assessment and Plan Assessment and plan: COVID-19 test negative x 2 [10/03/2020 and 10/06/2020] --Acute hypoxic respiratory failure; requiring 10 L nasal cannula oxygen Wean as tolerated, titrate O2 sats more than 90%, nebulizers, IV steroids, IV antibiotics, inhalation steroids Pulmonary following --AFB smears, cultures gold interferon test requested per ID We will place the patient in isolation --Severe sepsis, POA; Secondary to bilateral pneumonia, high procalcitonin levels Continue IV antibiotics, follow cultures --Bilateral pneumonia: Procalcitonin levels high Continue IV antibiotics follow cultures. --Acute bronchial asthma: exacerbation Oxygen, nebulizers, IV steroids, supportive care --Elevated D-dimer; CTA negative for PE --Hypertension; moderate control Continue current antihypertensives and as needed medications --Ongoing tobacco : Smoking cessation counseling, advised nicotine patch --DVT prophylaxis; Lovenox --Obesity; BMI 37.1 Strongly advised weight reduction, dietary modification, exercise as tolerated Lifestyle changes when medically stable Closely monitor the patient and adjust management as needed Plan of care reviewed with the patient and his nurse Welcome Wagon Hostess recommendations noted and appreciated. Brief history; 39-year-old obese male patient with acute hypoxic respiratory failure secondary to bilateral airspace disease was admitted through emergency room with worsening shortness of breath, possible pneumonia versus atypical pneumonia/Covid COVID-19 test x 2 negative , 10/03/2020 and 10/06/2020. Pulmonary planning bronchoscopy 10/03/2020. Continue IV antibiotics for now and follow-up procalcitonin. Add steroids for asthma exacerbation. Continue bronchodilators. Continue BiPAP 12/ 6 and FiO2 100%. Pulmonary and ID consultations pending. 10/04/2020. Patient still with significant respiratory failure with etiology secondary to likely community-acquired pneumonia and acute asthma exacerbation. Covid testing negative. Start IV steroids and monitor closely. Continue IV antibiotics and follow-up chest x-ray in a.m. Patient counseled on tobacco cessation. Patient still requiring high flow nasal cannula 15 L/min. Continue to wean oxygen as tolerated. Patient will remain in IMCU due to high risk of decompensation given respiratory status. 10/05/2020. Patient still with significant respiratory failure with etiology secondary to likely community-acquired pneumonia and acute asthma exacerbation. Covid testing negative. Continue Solu-Medrol 40 mg IV every 8 hours. Patient still requiring high flow nasal cannula 15 L/min. Continue to wean oxygen as tolerated. Patient will remain in IMCU due to high risk of decompensation given respiratory status. Continue IV antibiotics and follow-up chest x-ray. 10/06/2020; pending repeat Covid test today, possible bronchoscopy when patient makes a decision Patient is still requiring high flow oxygen, wean as tolerated COVID-19 test x2 negative, pulmonary planning bronchoscopy 10/07/2020; AFP smear, gold interferon test, AFB cultures requested To rule out pulmonary tuberculosis, consider isolation COVID-19 test x2 negative History Interval history: I have seen and examined the patient at the bedside Patient's chart and medications reviewed Patient feels slightly better complains of mild shortness of breath Patient is requiring 10 L of nasal cannula oxygen Vital signs noted Hospitalist Physical - Constitutional Vitals: Temp Pulse Resp BP Pulse Ox 98.1 F 85 34 H 174/95 88 10/07/20 08:00 10/07/20 09:23 10/07/20 09:00 10/07/20 09:23 10/07/20 09:00 General appearance: Present: no acute distress, well-nourished, obese - EENT Eyes: Present: PERRL, EOM intact - Neck Neck: Present: supple, normal ROM - Respiratory Respiratory effort: normal Respiratory: bilateral: diminished, rhonchi, negative: rales, wheezing - Cardiovascular Rhythm: regular Heart Sounds: Present: S1 & S2 - Extremities Extremities: no ischemia, No edema - Abdominal General gastrointestinal: soft, non-tender, non-distended, normal bowel sounds - Integumentary Integumentary: Present: clear, warm - Psychiatric Psychiatric: appropriate mood/affect, cooperative - Neurologic Neurologic: CNII-XII intact, moves all extremities HEART Score - HEART Score Troponin: Troponin T < 0.010 ng/mL (0.00-0.029) 10/02/20 23:55 Results - Labs CBC & Chem 7: 10/04/20 05:41 10/05/20 04:29 Labs: Laboratory Last Values WBC 21.4 K/mm3 (4.5-11.0) H 10/04/20 05:41 RBC 4.71 M/mm3 (3.65-5.03) 10/04/20 05:41 Hgb 14.3 gm/dl (11.8-15.2) 10/04/20 05:41 Hct 43.3 % (35.5-45.6) 10/04/20 05:41 MCV 92 fl (84-94) 10/04/20 05:41 MCH 30 pg (28-32) 10/04/20 05:41 MCHC 33 % (32-34) 10/04/20 05:41 RDW 15.1 % (13.2-15.2) 10/04/20 05:41 Plt Count 219 K/mm3 (140-440) 10/04/20 05:41 Add Manual Diff Complete 10/04/20 05:41 Total Counted 100 10/04/20 05:41 Seg Neutrophils % Wireless Manager 10/02/20 23:36 Seg Neuts % (Manual) 83.0 % (40.0-70.0) H 10/04/20 05:41 Band Neutrophils % 9.0 % 10/02/20 23:36 Lymphocytes % (Manual) 12.0 % (13.4-35.0) L 10/04/20 05:41 Monocytes % (Manual) 5.0 % (0.0-7.3) 10/04/20 05:41 Nucleated RBC % Not Reportable 10/04/20 05:41 Seg Neutrophils # Man 17.8 K/mm3 (1.8-7.7) H 10/04/20 05:41 Band Neutrophils # 0.0 K/mm3 10/04/20 05:41 Lymphocytes # (Manual) 2.6 K/mm3 (1.2-5.4) 10/04/20 05:41 Abs React Lymphs (Man) 0.0 K/mm3 10/04/20 05:41 Monocytes # (Manual) 1.1 K/mm3 (0.0-0.8) H 10/04/20 05:41 Eosinophils # (Manual) 0.0 K/mm3 (0.0-0.4) 10/04/20 05:41 Basophils # (Manual) 0.0 K/mm3 (0.0-0.1) 10/04/20 05:41 Metamyelocytes # 0.0 K/mm3 10/04/20 05:41 Myelocytes # 0.0 K/mm3 10/04/20 05:41 Promyelocytes # 0.0 K/mm3 10/04/20 05:41 Blast Cells # 0.0 K/mm3 10/04/20 05:41 WBC Morphology Not Reportable 10/04/20 05:41 Hypersegmented Neuts Not Reportable 10/04/20 05:41 Hyposegmented Neuts Not Reportable 10/04/20 05:41 Hypogranular Neuts Not Reportable 10/04/20 05:41 Smudge Cells Not Reportable 10/04/20 05:41 Toxic Granulation Not Reportable 10/04/20 05:41 Toxic Vacuolation Not Reportable 10/04/20 05:41 Dohle Bodies Not Reportable 10/04/20 05:41 Pelger-Huet Anomaly Not Reportable 10/04/20 05:41 [place] Rods Not Reportable 10/04/20 05:41 Platelet Estimate Consistent w auto 10/04/20 05:41 Clumped Platelets Not Reportable 10/04/20 05:41 Plt Clumps, EDTA Not Reportable 10/04/20 05:41 Large Platelets Not Reportable 10/04/20 05:41 Giant Platelets Not Reportable 10/04/20 05:41 Platelet Satelliting Not Reportable 10/04/20 05:41 Plt Morphology Comment Not Reportable 10/04/20 05:41 RBC Morphology Not Reportable 10/04/20 05:41 Dimorphic RBCs Not Reportable 10/04/20 05:41 Polychromasia Not Reportable 10/04/20 05:41 Hypochromasia Not Reportable 10/04/20 05:41 Poikilocytosis Not Reportable 10/04/20 05:41 Anisocytosis Not Reportable 10/04/20 05:41 Microcytosis Not Reportable 10/04/20 05:41 Macrocytosis Not Reportable 10/04/20 05:41 Spherocytes Not Reportable 10/04/20 05:41 Pappenheimer Bodies Not Reportable 10/04/20 05:41 Sickle Cells Not Reportable 10/04/20 05:41 Target Cells Not Reportable 10/04/20 05:41 Tear Drop Cells Not Reportable 10/04/20 05:41 Ovalocytes Not Reportable 10/04/20 05:41 Helmet Cells Not Reportable 10/04/20 05:41 [place] Bodies Not Reportable 10/04/20 05:41 [place] Rings Not Reportable 10/04/20 05:41 [place] Cells Few 10/04/20 05:41 Bite Cells Not Reportable 10/04/20 05:41 Crenated Cell Not Reportable 10/04/20 05:41 Elliptocytes Not Reportable 10/04/20 05:41 Acanthocytes (Spur) Not Reportable 10/04/20 05:41 Rouleaux Not Reportable 10/04/20 05:41 Hemoglobin C Crystals Not Reportable 10/04/20 05:41 Schistocytes Not Reportable 10/04/20 05:41 Malaria parasites Not Reportable 10/04/20 05:41 [place] Bodies Not Reportable 10/04/20 05:41 Hem Pathologist Commnt No 10/04/20 05:41 D-Dimer 963.03 ng/mlDDU (0-234) H 10/02/20 23:55 Sodium 139 mmol/L (137-145) 10/05/20 04:29 Potassium 4.9 mmol/L (3.6-5.0) 10/05/20 04:29 Chloride 106.3 mmol/L (98-107) 10/05/20 04:29 Carbon Dioxide 23 mmol/L (22-30) 10/05/20 04:29 Anion Gap 15 mmol/L 10/05/20 04:29 BUN 14 mg/dL (9-20) 10/05/20 04:29 Creatinine 1.0 mg/dL (0.8-1.3) 10/05/20 04:29 Estimated GFR > 60 ml/min 10/05/20 04:29 BUN/Creatinine Ratio 14 % 10/05/20 04:29 Glucose 136 mg/dL (75-100) H 10/05/20 04:29 POC Glucose 100 mg/dL (70-105) 10/07/20 07:21 Lactic Acid 1.40 mmol/L (0.7-2.0) 10/03/20 05:34 Calcium 8.7 mg/dL (8.4-10.2) 10/05/20 04:29 Magnesium 2.30 mg/dL (1.7-2.3) 10/05/20 04:29 Ferritin 349.5 ng/mL (30.0-300.0) H 10/02/20 23:55 Total Bilirubin 1.70 mg/dL (0.1-1.2) H 10/02/20 23:36 AST 67 units/L (5-40) H 10/02/20 23:36 ALT 36 units/L (7-56) 10/02/20 23:36 Alkaline Phosphatase 66 units/L (35-129) 10/02/20 23:36 Lactate Dehydrogenase 554 units/L (91-180) H 10/02/20 23:55 Troponin T < 0.010 ng/mL (0.00-0.029) 10/02/20 23:55 C-Reactive Protein 5.60 mg/dL (0.00-1.30) H 10/02/20 23:55 NT-Pro-B Natriuret Pep 1122 pg/mL (0-450) H 10/05/20 13:31 Total Protein 7.3 g/dL (6.3-8.2) 10/02/20 23:36 Albumin 4.3 g/dL (3.9-5) 10/02/20 23:36 Albumin/Globulin Ratio 1.4 % 10/02/20 23:36 Procalcitonin 4.38 ng/mL (<0.15) 10/05/20 14:17 Urine Color Yellow (Yellow) 10/03/20 07:50 Urine Turbidity Clear (Clear) 10/03/20 07:50 Urine pH 5.0 (5.0-7.0) 10/03/20 07:50 Ur Specific [place] 1.034 (1.003-1.030) H 10/03/20 07:50 Urine Protein <15 mg/dl mg/dL (Negative) 10/03/20 07:50 Urine Glucose (UA) Neg mg/dL (Negative) 10/03/20 07:50 Urine Ketones Tr mg/dL (Negative) 10/03/20 07:50 Urine Blood Neg (Negative) 10/03/20 07:50 Urine Nitrite Neg (Negative) 10/03/20 07:50 Urine Bilirubin Neg (Negative) 10/03/20 07:50 Urine Urobilinogen < 2.0 mg/dL (<2.0) 10/03/20 07:50 Ur Leukocyte Esterase Neg (Negative) 10/03/20 07:50 Urine WBC (Auto) 0.0 /HPF (0.0-6.0) 10/03/20 07:50 Urine RBC (Auto) 1.0 /HPF (0.0-6.0) 10/03/20 07:50 Urine Mucus Few /HPF 10/03/20 07:50 Coronavirus (PCR) Negative (Negative) 10/06/20 Unknown HIV 1&2 Antibody Rapid Non react (Non React) 10/05/20 13:31 HIV P24 Antigen Non react (Non React) 10/05/20 13:31 AFB Identification 10/06/20 01:30 Microbiology: Microbiology 10/02/20 23:55 Peripheral/Venous Blood Culture - Preliminary NO GROWTH AFTER 4 DAYS 10/03/20 00:12 Peripheral/Venous Blood Culture - Preliminary NO GROWTH AFTER 4 DAYS Ruiz/IV: Voiding Method Urinal Active Medications - Current Medications Current Medications: Generic Name Dose Route Start Last Admin Trade Name Freq PRN Reason Stop Dose Admin Acetaminophen 650 mg 10/03/20 02:15 10/06/20 14:05 Acetaminophen 325 Mg Tab PO 650 mg Q4H PRN Administration Fever >101 Al Hydrox/Mg Hydrox/Simethicone 15 ml 10/03/20 01:56 Alum-Mag Hydroxide-Simethicone 491-129-70bm/5ml Oral Liqd 30 Ml PO Q4H PRN Indigestion Albuterol 2.5 mg 10/03/20 01:45 10/04/20 13:40 Albuterol 2.5 Mg/3 Ml Nebu IH 2.5 mg Q4HRT PRN Administration Shortness Of Breath Arformoterol Tartrate 15 mcg 10/03/20 11:00 10/07/20 08:54 Arformoterol 15 Mcg/2 Ml Nebu IH 15 mcg Q12HRT DEBORAH Administration Azithromycin 500 mg 10/05/20 10:00 10/07/20 09:23 Azithromycin 250 Mg Tab PO 10/08/20 10:01 500 mg QDAY DEBORAH Administration Protocol Budesonide 0.5 mg 10/06/20 09:30 10/07/20 08:54 Budesonide 0.5 Mg/2 Ml Nebu IH 0.5 mg Q12HRT DEBORAH Administration Enoxaparin Sodium 40 mg 10/03/20 10:00 10/07/20 09:23 Enoxaparin 40 Mg/0.4 Ml Inj SUB-Q 40 mg DAILY DEBORAH Administration Protocol Guaifenesin 200 mg 10/06/20 04:44 10/07/20 09:22 Guaifenesin 100 Mg/5 Ml Oral Liqd PO 200 mg Q4H PRN Administration Cough Hydralazine HCl 5 mg 10/03/20 01:47 10/06/20 19:15 Hydralazine 20 Mg/1 Ml Inj IV 5 mg Q4H PRN Administration Hypertension Sodium Chloride 1,000 mls @ 75 mls/hr 10/03/20 03:45 10/06/20 21:01 Nacl 0.9% 1000 Ml IV 75 mls/hr DIRECT DEBORAH Administration Ceftriaxone Sodium 2 gm in 100 mls @ 200 mls/hr 10/05/20 10:00 10/07/20 09:23 Rocephin/Ns 2 Gm/100 Ml IV 10/08/20 10:29 200 mls/hr Q24H DEBORAH Administration Protocol Lisinopril 40 mg 10/03/20 22:00 10/07/20 09:23 Lisinopril 40 Mg Tab PO 40 mg BID DEBORAH Administration Methylprednisolone Sodium Succinate 40 mg 10/06/20 14:00 10/07/20 06:36 Methylprednisolone Sod Succinate 40 Mg/1 Ml Inj IV 40 mg Q8HR DEBORAH Administration Nicotine 14 mg 10/04/20 10:00 10/07/20 09:22 Nicotine 14 Mg/24 Hr Patch TD 14 mg QDAY DEBORAH Administration Ondansetron HCl 4 mg 10/03/20 01:56 Ondansetron 4 Mg/2 Ml Inj IV Q4H PRN Nausea And Vomiting Senna 8.6 mg 10/03/20 01:56 Sennosides 8.6 Mg Tab PO Q12H PRN Laxative Effect Tramadol HCl 50 mg 10/03/20 01:43 10/07/20 09:31 Tramadol 50 Mg Tab PO 50 mg Q4H PRN Administration Pain, Moderate (4-6) Trazodone HCl 50 mg 10/03/20 01:43 10/07/20 02:56 Trazodone 50 Mg Tab PO 50 mg QHS PRN Administration Insomnia
[2020-10-07] MEDS: SODIUM CHLORIDE 0.9% 1000 ML 1,000 ML IV SCH ×2 (11:18→21:26)
--- NOTE | 2020-10-07 11:34 | Progress Note ---
Assessment and Plan Cultures: Blood culture 10/03/2020 no growth today AFB x1 neg Assessment: 39 years old male with history of tobacco abuse, asthma, hypertension, obesity admitted on 10/02/2020 secondary to a week history of cough, shortness of breath, nasal congestion, wheezing associated with body aches and fever/chills: #Severe sepsis: Fever resolved, procalcitonin worsening 1.1-->4.3, leukocytosis; likely secondary to bilateral pneumonia #Bilateral pneumonia: Of unclear etiology. Recently released after 2 years in [facility]ision now homeless. SARS-CoV-2 PCR negative x 2. HIV rapid test neg. Noted elevated D-dimer at night 63, mild elevated ferritin, CRP. CTA shows extensive bilateral pneumonia no PE. Legs ultrasound no DVT. ?pulmonary TB ?CAP #Acute hypoxemic respiratory failure: Remains on salter 8 L. #Tobacco abuse #Asthma exacerbation #Transaminitis: Mild. Recommendations: -AFB x3 ordered pending, AFB x 1 neg -QuantiFERON TB Gold ordered pending -check CRP, JOSE F, C3/C4 -Discussed with Dr Stock if TB is r/o will bronch -Continue ceftriaxone 2 g IV once a day total 5 days D4 of 5 -Continue azithromycin 500 g IV/PO once a day total 5 days D4 of 5 -Obtain Legionella urine antigen and strep urine ag, pending -If repeat SARS-CoV-2 PCR is positive start dexamethasone and remdesivir Will follow. Discussed with Dr. Dayami Powers MD Infectious Diseases [employer] [facility] [phone] Subjective Date of service: 10/07/20 Principal diagnosis: Bilateral pneumonia Interval history: Patient feels okay, still short of breath along with cough. No fever. Remains on salter 8L Objective - Exam Narrative Exam: General appearance: Alert in no acute distress on [place] Eyes: anicteric sclerae, moist conjunctivae; no lid-lag; PERRLA HENT: Normocephalic, Atraumatic; normal external ears, nares open, oropharynx clear Neck: supple, tracheal midline, no JVD Lungs: Bilateral rhonchi CV: RRR no murmur Abdomen: Soft, non-tender Extremities: no edema, no cyanosis Skin: No rash. Psych: no agitated Neuro: alert and oriented x 3. Moving all extermities - Constitutional Vitals: Vital Signs Temp Pulse Resp BP Pulse Ox 98.1 F 85 34 H 174/95 88 10/07/20 08:00 10/07/20 09:23 10/07/20 09:00 10/07/20 09:23 10/07/20 09:00 Temperature -Last 24 Hours Temperature 98.1 F Temperature 98.6 F Temperature 98.8 F Temperature 98.8 F Temperature 99.3 F Temperature 99.1 F - Labs CBC & Chem 7: 10/04/20 05:41 10/05/20 04:29 Labs: Abnormal lab results 10/06/20 10/06/20 10/06/20 Range/Units 11:38 17:07 21:02 POC Glucose 109 H 142 H 134 H (70-105) mg/dL
--- NOTE | 2020-10-07 12:28 | Progress Note ---
Assessment and Plan 39 y/o male with acute respiratory failure secondary to bilateral airspace disease, initial concern for pneumonia and possibly covid. 10/07/20: Hold on bronch for now. Needs sputum cultures and if not able to produce, will order induced sputum. Agree with isolation to rule out TB. Aggressive weaning of oxygen as sats are stable. 10/06/20: Await repeat COVID test. If negative then will ask patient his decision about bronch. For now, continue supportive measures. 1. Discussed with patient about the possiblity of bronch. Given smoking history and illicit drug use, not unreasonable to do. Patient will let me know tomorrow. 2. Incentive alda and proning will help with oxygenation no matter what 3. Abx therapy per ID, follow up repeat COVID. 4. Wean FiO2 for sats> 88% Guarded prognosis. Subjective Date of service: 10/07/20 Principal diagnosis: Bilateral pneumonia Interval history: Second Covid is negative. Now, found out patient was recently incarcerated and has significant TB exposure. Objective Vital Signs - 12hr 10/07/20 10/07/20 10/07/20 01:01 02:00 02:55 Temperature Pulse Rate 75 75 Pulse Rate [ From Monitor] Respiratory 35 H 25 H 10 L Rate Blood Pressure 135/71 143/97 O2 Sat by Pulse 99 93 Oximetry 10/07/20 10/07/20 10/07/20 03:00 03:40 03:55 Temperature 98.6 F Pulse Rate 75 Pulse Rate [ From Monitor] Respiratory 11 L 23 Rate Blood Pressure 162/91 O2 Sat by Pulse 92 Oximetry 10/07/20 10/07/20 10/07/20 04:00 04:30 05:01 Temperature Pulse Rate 68 69 70 Pulse Rate [ From Monitor] Respiratory 25 H 22 Rate Blood Pressure 159/103 139/97 O2 Sat by Pulse 91 92 Oximetry 10/07/20 10/07/20 10/07/20 06:00 07:00 08:00 Temperature 98.1 F Pulse Rate 70 67 90 Pulse Rate [ 95 H From Monitor] Respiratory 24 25 H 20 Rate Blood Pressure 143/102 141/102 O2 Sat by Pulse 94 95 96 Oximetry 10/07/20 10/07/20 10/07/20 08:01 09:00 09:23 Temperature Pulse Rate 64 85 Pulse Rate [ From Monitor] Respiratory 20 34 H Rate Blood Pressure 153/103 174/95 174/95 O2 Sat by Pulse 92 88 Oximetry Constitutional: no acute distress, alert, other (on hiflo) ENT: oropharynx moist Neck: supple Effort: normal Ascultation: Bilateral: rhonchi Cardiovascular: regular rate and rhythm Gastrointestinal: normoactive bowel sounds, soft, non-tender, non-distended Integumentary: normal Extremities: no cyanosis CBC and BMP: 10/04/20 05:41 10/05/20 04:29 ABG, PT/INR, D-dimer: PT/INR, D-dimer D-Dimer 963.03 ng/mlDDU (0-234) H 10/02/20 23:55 Abnormal lab findings: Abnormal Labs 10/02/20 10/02/20 10/02/20 23:36 23:36 23:55 WBC 28.4 H RBC 5.20 H Hgb 16.1 H Hct 46.9 H Seg Neuts % (Manual) 82.0 H Lymphocytes % (Manual) 6.0 L Seg Neutrophils # Man 23.3 H Monocytes # (Manual) 0.9 H D-Dimer 963.03 H Chloride Carbon Dioxide 21 L Glucose 116 H POC Glucose Lactic Acid Ferritin Total Bilirubin 1.70 H AST 67 H Lactate Dehydrogenase C-Reactive Protein NT-Pro-B Natriuret Pep Ur Specific [place] 10/02/20 10/02/20 10/03/20 23:55 23:55 00:52 WBC RBC Hgb Hct Seg Neuts % (Manual) Lymphocytes % (Manual) Seg Neutrophils # Man Monocytes # (Manual) D-Dimer Chloride Carbon Dioxide Glucose 105 H POC Glucose Lactic Acid 3.10 H* Ferritin 349.5 H Total Bilirubin AST Lactate Dehydrogenase 554 H C-Reactive Protein 5.60 H NT-Pro-B Natriuret Pep Ur Specific [place] 10/03/20 10/04/20 10/04/20 07:50 05:41 05:41 WBC 21.4 H RBC Hgb Hct Seg Neuts % (Manual) 83.0 H Lymphocytes % (Manual) 12.0 L Seg Neutrophils # Man 17.8 H Monocytes # (Manual) 1.1 H D-Dimer Chloride 107.6 H Carbon Dioxide Glucose 101 H POC Glucose Lactic Acid Ferritin Total Bilirubin AST Lactate Dehydrogenase C-Reactive Protein NT-Pro-B Natriuret Pep Ur Specific [place] 1.034 H 10/04/20 10/04/20 10/05/20 16:42 21:43 04:29 WBC RBC Hgb Hct Seg Neuts % (Manual) Lymphocytes % (Manual) Seg Neutrophils # Man Monocytes # (Manual) D-Dimer Chloride Carbon Dioxide Glucose 136 H POC Glucose 137 H 161 H Lactic Acid Ferritin Total Bilirubin AST Lactate Dehydrogenase C-Reactive Protein NT-Pro-B Natriuret Pep Ur Specific [place] 10/05/20 10/05/20 10/05/20 09:24 11:37 13:31 WBC RBC Hgb Hct Seg Neuts % (Manual) Lymphocytes % (Manual) Seg Neutrophils # Man Monocytes # (Manual) D-Dimer Chloride Carbon Dioxide Glucose POC Glucose 141 H 115 H Lactic Acid Ferritin Total Bilirubin AST Lactate Dehydrogenase C-Reactive Protein NT-Pro-B Natriuret Pep 1122 H Ur Specific [place] 10/05/20 10/05/20 10/06/20 17:13 23:26 11:38 WBC RBC Hgb Hct Seg Neuts % (Manual) Lymphocytes % (Manual) Seg Neutrophils # Man Monocytes # (Manual) D-Dimer Chloride Carbon Dioxide Glucose POC Glucose 135 H 135 H 109 H Lactic Acid Ferritin Total Bilirubin AST Lactate Dehydrogenase C-Reactive Protein NT-Pro-B Natriuret Pep Ur Specific [place] 10/06/20 10/06/20 17:07 21:02 WBC RBC Hgb Hct Seg Neuts % (Manual) Lymphocytes % (Manual) Seg Neutrophils # Man Monocytes # (Manual) D-Dimer Chloride Carbon Dioxide Glucose POC Glucose 142 H 134 H Lactic Acid Ferritin Total Bilirubin AST Lactate Dehydrogenase C-Reactive Protein NT-Pro-B Natriuret Pep Ur Specific [place]
[2020-10-07] MEDS: hydrALAZINE 20 MG/1 ML INJ IV PRN (17:50)
[2020-10-08] MEDS: hydrALAZINE 20 MG/1 ML INJ IV PRN ×4 (00:18→15:21)
[2020-10-08] MEDS: traMADol 50 MG TAB PO PRN ×4 (03:37→22:34)
[2020-10-08] MEDS: guaiFENesin 100 MG/5 ML ORAL LIQD PO PRN ×4 (03:37→22:39)
[2020-10-08] MEDS: methylPREDNISolone Sod Succinate 40 MG/1 ML INJ IV SCH ×3 (06:00→22:32)
--- NOTE | 2020-10-08 08:22 | Progress Note ---
Assessment and Plan Assessment and plan: COVID-19 test negative x 2 [10/03/2020 and 10/06/2020] --Acute hypoxic respiratory failure; requiring 10 L nasal cannula oxygen Wean as tolerated, titrate O2 sats more than 90%, nebulizers, IV steroids, IV antibiotics, inhalation steroids Pulmonary following --AFB smears, cultures gold interferon test requested per ID We will place the patient in isolation --Severe sepsis, POA; Secondary to bilateral pneumonia, high procalcitonin levels Continue IV antibiotics, follow cultures --Bilateral pneumonia: Procalcitonin levels high Continue IV antibiotics follow cultures. --Acute bronchial asthma: exacerbation Oxygen, nebulizers, IV steroids, supportive care --Elevated D-dimer; CTA negative for PE --Hypertension; uncontrolled Add hydralazine 25 mg 3 times a day , IV hydralazine as needed Closely monitor blood pressures and adjust the medications as indicated --Ongoing tobacco : Smoking cessation counseling, advised nicotine patch --DVT prophylaxis; Lovenox --Obesity; BMI 37.1 Strongly advised weight reduction, dietary modification, exercise as tolerated Lifestyle changes when medically stable Closely monitor the patient and adjust management as needed Plan of care reviewed with the patient and his nurse Forestry Aide recommendations noted and appreciated. Brief history; 39-year-old obese male patient with acute hypoxic respiratory failure secondary to bilateral airspace disease was admitted through emergency room with worsening shortness of breath, possible pneumonia versus atypical pneumonia/Covid COVID-19 test x 2 negative , 10/03/2020 and 10/06/2020. Pulmonary planning b ronchoscopy 10/03/2020. Continue IV antibiotics for now and follow-up procalcitonin. Add steroids for asthma exacerbation. Continue bronchodilators. Continue BiPAP 12/6 and FiO2 100%. Pulmonary and ID consultations pending. 10/04/2020. Patient still with significant respiratory failure with etiology secondary to likely community-acquired pneumonia and acute asthma exacerbation. Covid testing negative. Start IV steroids and monitor closely. Continue IV antibiotics and follow-up chest x-ray in a.m. Patient counseled on tobacco cessation. Patient still requiring high flow nasal cannula 15 L/min. Continue to wean oxygen as tolerated. Patient will remain in IMCU due to high risk of d ecompensation given respiratory status. 10/05/2020. Patient still with significant respiratory failure with etiology secondary to likely community-acquired pneumonia and acute asthma exacerbation. Covid testing negative. Continue Solu-Medrol 40 mg IV every 8 hours. Patient still requiring high flow nasal cannula 15 L/min. Continue to wean oxygen as tolerated. Patient will remain in IMCU due to high risk of decompensation given respiratory status. Continue IV antibiotics and follow-up chest x-ray. 10/06/2020; pending repeat Covid test today, possible bronchoscopy when patient makes a decision Patient is still requiring high flow oxygen, wean as tolerated COVID-19 test x2 negative, pulmonary planning bronchoscopy 10/07/2020; AFP smear, gold interferon test, AFB cultures requested To rule out pulmonary tuberculosis, consider isolation COVID-19 test x2 negative, plans of bronchoscopy was on hold 10/08/2020; bronchoscopy pending TB testing, Patient continues to require 10 L nasal cannula oxygen History Interval history: I have seen and examined the patient at the bedside in IMCU Patient feels slightly better still has some shortness of breath and Cough Continues to require 10 L of nasal cannula oxygen TB testing is in progress, patient is in isolation Hospitalist Physical - Constitutional Vitals: Temp Pulse Resp BP Pulse Ox 98.3 F 83 26 H 163/80 91 10/08/20 00:00 10/08/20 07:00 10/08/20 07:00 10/08/20 07:00 10/08/20 07:00 General appearance: Present: no acute distress, well-nourished, obese - EENT Eyes: Present: PERRL, EOM intact - Neck Neck: Present: supple, normal ROM - Respiratory Respiratory effort: normal, labored Respiratory: bilateral: diminished, rhonchi, wheezing - Extremities Extremities: no ischemia Extremity abnormal: edema - Abdominal General gastrointestinal: soft, non-tender, non-distended, normal bowel sounds - Integumentary Integumentary: Present: clear, warm - Psychiatric Psychiatric: appropriate mood/affect, cooperative - Neurologic Neurologic: CNII-XII intact, moves all extremities HEART Score - HEART Score Troponin: Troponin T < 0.010 ng/mL (0.00-0.029) 10/02/20 23:55 Results - Labs CBC & Chem 7: 10/08/20 15:31 10/05/20 04:29 Labs: Laboratory Last Values WBC 21.4 K/mm3 (4.5-11.0) H 03/21/21 05:41 RBC 4.71 M/mm3 (3.65-5.03) 10/04/20 05:41 Hgb 14.3 gm/dl (11.8-15.2) 10/04/20 05:41 Hct 43.3 % (35.5-45.6) 10/04/20 05:41 MCV 92 fl (84-94) 10/04/20 05:41 MCH 30 pg (28-32) 10/04/20 05:41 MCHC 33 % (32-34) 10/04/20 05:41 RDW 15.1 % (13.2-15.2) 10/04/20 05:41 Plt Count 219 K/mm3 (140-440) 10/04/20 05:41 Add Manual Diff Complete 10/04/20 05:41 Total Counted 100 10/04/20 05:41 Seg Neutrophils % [employer] 10/02/20 23:36 Seg Neuts % (Manual) 83.0 % (40.0-70.0) H 10/04/20 05:41 Band Neutrophils % 9.0 % 10/02/20 23:36 Lymphocytes % (Manual) 12.0 % (13.4-35.0) L 10/04/20 05:41 Monocytes % (Manual) 5.0 % (0.0-7.3) 10/04/20 05:41 Nucleated RBC % Not Reportable 10/04/20 05:41 Seg Neutrophils # Man 17.8 K/mm3 (1.8-7.7) H 10/04/20 05:41 Band Neutrophils # 0.0 K/mm3 10/04/20 05:41 Lymphocytes # (Manual) 2.6 K/mm3 (1.2-5.4) 10/04/20 05:41 Abs React Lymphs (Man) 0.0 K/mm3 10/04/20 05:41 Monocytes # (Manual) 1.1 K/mm3 (0.0-0.8) H 10/04/20 05:41 Eosinophils # (Manual) 0.0 K/mm3 (0.0-0.4) 10/04/20 05:41 Basophils # (Manual) 0.0 K/mm3 (0.0-0.1) 10/04/20 05:41 Metamyelocytes # 0.0 K/mm3 10/04/20 05:41 Myelocytes # 0.0 K/mm3 10/04/20 05:41 Promyelocytes # 0.0 K/mm3 10/04/20 05:41 Blast Cells # 0.0 K/mm3 10/04/20 05:41 WBC Morphology Not Reportable 10/04/20 05:41 Hypersegmented Neuts Not Reportable 10/04/20 05:41 Hyposegmented Neuts Not Reportable 10/04/20 05:41 Hypogranular Neuts Not Reportable 10/04/20 05:41 Smudge Cells Not Reportable 10/04/20 05:41 Toxic Granulation Not Reportable 10/04/20 05:41 Toxic Vacuolation Not Reportable 10/04/20 05:41 Dohle Bodies Not Reportable 10/04/20 05:41 Pelger-Huet Anomaly Not Reportable 10/04/20 05:41 [place] Rods Not Reportable 10/04/20 05:41 Platelet Estimate Consistent w auto 10/04/20 05:41 Clumped Platelets Not Reportable 10/04/20 05:41 Plt Clumps, EDTA Not Reportable 10/04/20 05:41 Large Platelets Not Reportable 10/04/20 05:41 Giant Platelets Not Reportable 10/04/20 05:41 Platelet Satelliting Not Reportable 10/04/20 05:41 Plt Morphology Comment Not Reportable 10/04/20 05:41 RBC Morphology Not Reportable 10/04/20 05:41 Dimorphic RBCs Not Reportable 10/04/20 05:41 Polychromasia Not Reportable 10/04/20 05:41 Hypochromasia Not Reportable 10/04/20 05:41 Poikilocytosis Not Reportable 10/04/20 05:41 Anisocytosis Not Reportable 10/04/20 05:41 Microcytosis Not Reportable 10/04/20 05:41 Macrocytosis Not Reportable 10/04/20 05:41 Spherocytes Not Reportable 10/04/20 05:41 Pappenheimer Bodies Not Reportable 10/04/20 05:41 Sickle Cells Not Reportable 10/04/20 05:41 Target Cells Not Reportable 10/04/20 05:41 Tear Drop Cells Not Reportable 10/04/20 05:41 Ovalocytes Not Reportable 10/04/20 05:41 Helmet Cells Not Reportable 10/04/20 05:41 Gan-Paisley Bodies Not Reportable 10/04/20 05:41 [place] Rings Not Reportable 10/04/20 05:41 [place] Cells Few 10/04/20 05:41 Bite Cells Not Reportable 10/04/20 05:41 Crenated Cell Not Reportable 10/04/20 05:41 Elliptocytes Not Reportable 10/04/20 05:41 Acanthocytes (Spur) Not Reportable 10/04/20 05:41 Rouleaux Not Reportable 10/04/20 05:41 Hemoglobin C Crystals Not Reportable 10/04/20 05:41 Schistocytes Not Reportable 10/04/20 05:41 Malaria parasites Not Reportable 10/04/20 05:41 [place] Bodies Not Reportable 10/04/20 05:41 Hem Pathologist Commnt No 10/04/20 05:41 D-Dimer 963.03 ng/mlDDU (0-234) H 10/02/20 23:55 Sodium 139 mmol/L (137-145) 10/05/20 04:29 Potassium 4.9 mmol/L (3.6-5.0) 10/05/20 04:29 Chloride 106.3 mmol/L (98-107) 10/05/20 04:29 Carbon Dioxide 23 mmol/L (22-30) 10/05/20 04:29 Anion Gap 15 mmol/L 10/05/20 04:29 BUN 14 mg/dL (9-20) 10/05/20 04:29 Creatinine 1.0 mg/dL (0.8-1.3) 10/05/20 04:29 Estimated GFR > 60 ml/min 10/05/20 04:29 BUN/Creatinine Ratio 14 % 10/05/20 04:29 Glucose 136 mg/dL (75-100) H 10/05/20 04:29 POC Glucose 168 mg/dL (70-105) H 10/07/20 21:36 Lactic Acid 1.40 mmol/L (0.7-2.0) 10/03/20 05:34 Calcium 8.7 mg/dL (8.4-10.2) 10/05/20 04:29 Magnesium 2.30 mg/dL (1.7-2.3) 10/05/20 04:29 Ferritin 349.5 ng/mL (30.0-300.0) H 10/02/20 23:55 Total Bilirubin 1.70 mg/dL (0.1-1.2) H 10/02/20 23:36 AST 67 units/L (5-40) H 10/02/20 23:36 ALT 36 units/L (7-56) 10/02/20 23:36 Alkaline Phosphatase 66 units/L (35-129) 10/02/20 23:36 Lactate Dehydrogenase 554 units/L (91-180) H 10/02/20 23:55 Troponin T < 0.010 ng/mL (0.00-0.029) 10/02/20 23:55 C-Reactive Protein 0.70 mg/dL (0.00-1.30) 10/07/20 14:42 NT-Pro-B Natriuret Pep 1122 pg/mL (0-450) H 10/05/20 13:31 Total Protein 7.3 g/dL (6.3-8.2) 10/02/20 23:36 Albumin 4.3 g/dL (3.9-5) 10/02/20 23:36 Albumin/Globulin Ratio 1.4 % 10/02/20 23:36 Procalcitonin 4.38 ng/mL (<0.15) 10/05/20 14:17 Urine Color Yellow (Yellow) 10/03/20 07:50 Urine Turbidity Clear (Clear) 10/03/20 07:50 Urine pH 5.0 (5.0-7.0) 10/03/20 07:50 Ur Specific [place] 1.034 (1.003-1.030) H 10/03/20 07:50 Urine Protein <15 mg/dl mg/dL (Negative) 10/03/20 07:50 Urine Glucose (UA) Neg mg/dL (Negative) 10/03/20 07:50 Urine Ketones Tr mg/dL (Negative) 10/03/20 07:50 Urine Blood Neg (Negative) 10/03/20 07:50 Urine Nitrite Neg (Negative) 10/03/20 07:50 Urine Bilirubin Neg (Negative) 10/03/20 07:50 Urine Urobilinogen < 2.0 mg/dL (<2.0) 10/03/20 07:50 Ur Leukocyte Esterase Neg (Negative) 10/03/20 07:50 Urine WBC (Auto) 0.0 /HPF (0.0-6.0) 10/03/20 07:50 Urine RBC (Auto) 1.0 /HPF (0.0-6.0) 10/03/20 07:50 Urine Mucus Few /HPF 10/03/20 07:50 Coronavirus (PCR) Negative (Negative) 10/06/20 Unknown HIV 1&2 Antibody Rapid Non react (Non React) 10/05/20 13:31 HIV P24 Antigen Non react (Non React) 10/05/20 13:31 AFB Identification 10/06/20 01:30 Microbiology: Microbiology 10/02/20 23:55 Peripheral/Venous Blood Culture - Final NO GROWTH AFTER 5 DAYS 10/03/20 00:12 Peripheral/Venous Blood Culture - Final NO GROWTH AFTER 5 DAYS Ruiz/IV: Voiding Method Urinal Active Medications - Current Medications Current Medications: Generic Name Dose Route Start Last Admin Trade Name Freq PRN Reason Stop Dose Admin Acetaminophen 650 mg 10/03/20 02:15 10/06/20 14:05 Acetaminophen 325 Mg Tab PO 650 mg Q4H PRN Administration Fever >101 Al Hydrox/Mg Hydrox/Simethicone 15 ml 10/03/20 01:56 Alum-Mag Hydroxide-Simethicone [phone]/5ml Oral Liqd 30 Ml PO Q4H PRN Indigestion Albuterol 2.5 mg 10/03/20 01:45 10/04/20 13:40 Albuterol 2.5 Mg/3 Ml Nebu IH 2.5 mg Q4HRT PRN Administration Shortness Of Breath Arformoterol Tartrate 15 mcg 10/03/20 11:00 10/07/20 23:43 Arformoterol 15 Mcg/2 Ml Nebu IH Not Given Q12HRT DEBORAH Azithromycin 500 mg 10/05/20 10:00 10/07/20 09:23 Azithromycin 250 Mg Tab PO 10/08/20 10:01 500 mg QDAY DEBORAH Administration Protocol Budesonide 0.5 mg 10/06/20 09:30 10/07/20 23:43 Budesonide 0.5 Mg/2 Ml Nebu IH Not Given Q12HRT [facility] Enoxaparin Sodium 40 mg 10/03/20 10:00 10/07/20 09:23 Enoxaparin 40 Mg/0.4 Ml Inj SUB-Q 40 mg DAILY DEBORAH Administration Protocol Guaifenesin 200 mg 10/06/20 04:44 10/08/20 03:37 Guaifenesin 100 Mg/5 Ml Oral Liqd PO 200 mg Q4H PRN Administration Cough Hydralazine HCl 5 mg 10/03/20 01:47 10/08/20 06:00 Hydralazine 20 Mg/1 Ml Inj IV 5 mg Q4H PRN Administration Hypertension Sodium Chloride 1,000 mls @ 75 mls/hr 10/03/20 03:45 10/07/20 21:26 Nacl 0.9% 1000 Ml IV 75 mls/hr DIRECT DEBORAH Administration Ceftriaxone Sodium 2 gm in 100 mls @ 200 mls/hr 10/05/20 10:00 10/07/20 09:23 Rocephin/Ns 2 Gm/100 Ml IV 10/08/20 10:29 200 mls/hr Q24H DEBORAH Administration Protocol Lisinopril 40 mg 10/03/20 22:00 10/07/20 21:22 Lisinopril 40 Mg Tab PO 40 mg BID DEBORAH Administration Methylprednisolone Sodium Succinate 40 mg 10/06/20 14:00 10/08/20 06:00 Methylprednisolone Sod Succinate 40 Mg/1 Ml Inj IV 40 mg Q8HR DEBORAH Administration Nicotine 14 mg 10/04/20 10:00 10/07/20 09:22 Nicotine 14 Mg/24 Hr Patch TD 14 mg QDAY DEBORAH Administration Ondansetron HCl 4 mg 10/03/20 01:56 Ondansetron 4 Mg/2 Ml Inj IV Q4H PRN Nausea And Vomiting Senna 8.6 mg 10/03/20 01:56 Sennosides 8.6 Mg Tab PO Q12H PRN Laxative Effect Tramadol HCl 50 mg 10/03/20 01:43 10/08/20 03:37 Tramadol 50 Mg Tab PO 50 mg Q4H PRN Administration Pain, Moderate (4-6) Trazodone HCl 50 mg 10/03/20 01:43 10/07/20 21:23 Trazodone 50 Mg Tab PO 50 mg QHS PRN Administration Insomnia
[2020-10-08] MEDS: BUDESONIDE 0.5 MG/2 ML NEBU IH SCH ×2 (08:28→21:26)
[2020-10-08] MEDS: ARFORMOTEROL 15 MCG/2 ML NEBU IH SCH ×2 (08:28→21:26)
[2020-10-08] MEDS: ENOXAPARIN 40 MG/0.4 ML INJ SUB-Q SCH (09:24)
[2020-10-08] MEDS: NICOTINE 14 MG/24 HR PATCH TD SCH (09:25)
[2020-10-08] MEDS: AZITHROMYCIN 250 MG TAB PO SCH (09:27)
[2020-10-08] MEDS: LISINOPRIL 40 MG TAB PO SCH ×2 (09:27→22:32)
[2020-10-08] MEDS: cefTRIAXone/NS 2 GM/100 ML 2 GM/100 ML BAG IV SCH (09:29)
--- NOTE | 2020-10-08 11:24 | Progress Note ---
Assessment and Plan Cultures: Blood culture 10/03/2020 no growth today AFB x1 neg Assessment: 39 years old male with history of tobacco abuse, asthma, hypertension, obesity admitted on 10/02/2020 secondary to a week history of cough, shortness of breath, nasal congestion, wheezing associated with body aches and fever/chills: #Severe sepsis: Fever resolved, procalcitonin worsening 1.1-->4.3, leukocytosis; likely secondary to bilateral pneumonia #Bilateral pneumonia: Of unclear etiology. Recently released after 2 years in detention now homeless. SARS-CoV-2 PCR negative x 2. HIV rapid test neg. Noted elevated D-dimer at night 63, mild elevated ferritin, CRP. CTA shows extensive bilateral pneumonia no PE. Legs ultrasound no DVT. ?pulmonary TB ?CAP. CRP 0.2. #Acute hypoxemic respiratory failure: Remains on salter 8 L. #Tobacco abuse #Asthma exacerbation #Transaminitis: Mild. Recommendations: -AFB x3 ordered pending, AFB x 1 neg -QuantiFERON TB Gold ordered pending -Follow-up JOSE F, C3/C4 however low CRP -Discussed with Dr Stock if TB is r/o will bronch -Continue ceftriaxone 2 g IV once a day total 5 days D5 of 5 -Continue azithromycin 500 g IV/PO once a day total 5 days D5 of 5 -Obtain Legionella urine antigen and strep urine ag, pending Will follow. Discussed with Dr. Dayami Powers MD Infectious Diseases Cell Stripper Final [facility] ([facility]) M [phone] O [phone] Subjective Date of service: 10/08/20 Principal diagnosis: Bilateral pneumonia Interval history: Patient feels better, cough improving, now on nasal cannula 3.5 L, no desaturations. No fever. Objective - Exam Narrative Exam: General appearance: Alert in no acute distress on nasal cannula O2 Eyes: anicteric sclerae, moist conjunctivae; no lid-lag; PERRLA HENT: Normocephalic, Atraumatic; normal external ears, nares open, oropharynx clear Neck: supple, tracheal midline, no JVD Lungs: Bilateral scattered rhonchi CV: RRR no murmur Abdomen: Soft, non-tender Extremities: no edema, no cyanosis Skin: No rash. Psych: no agitated Neuro: alert and oriented x 3. Moving all extermities - Constitutional Vitals: Vital Signs Temp Pulse Resp BP Pulse Ox 98.7 F 97 H 34 H 187/104 89 10/08/20 08:00 10/08/20 10:53 10/08/20 10:00 10/08/20 10:53 10/08/20 10:00 Temperature -Last 24 Hours Temperature 98.7 F Temperature 98.3 F Temperature 97.7 F Temperature 97.8 F Temperature 97.9 F - Labs CBC & Chem 7: 10/04/20 05:41 10/05/20 04:29 Labs: Abnormal lab results 10/07/20 10/07/20 10/07/20 Range/Units 11:14 16:35 21:36 POC Glucose 128 H 133 H 168 H (70-105) mg/dL 10/08/20 Range/Units 07:38 POC Glucose 142 H (70-105) mg/dL
--- NOTE | 2020-10-08 11:49 | Event Note ---
Date: 10/08/20 down to 3.5 liters. sputum still pending. Stable for transfer to floor. continue to wean fio2 for sats >88%
[2020-10-08 16:34] LABS: Hematocrit 42.4 % (35.5-45.6); Hemoglobin 14.3 gm/dl (11.8-15.2); Mean Corpuscular HGB Conc 34 % (32-34); Mean Corpuscular Volume 91 fl (84-94); Platelet Count 238 K/mm3 (140-440); Red Blood Count 4.64 M/mm3 (3.65-5.03); Red Cell Distribution Width 14.4 % (13.2-15.2)
[2020-10-08] MEDS: hydrALAZINE 25 MG TAB PO SCH ×2 (17:07→22:37)
[2020-10-08 17:28] LABS: HIV-1 RNA QN PCR <1.30 Log cps/mL; HIV-1 RNA QN PCR <20 Copies/mL
[2020-10-08] MEDS: SODIUM CHLORIDE 0.9% 1000 ML 1,000 ML IV SCH (19:39)
[2020-10-08 19:56] LABS: Band Neutrophils # (Manual) 0.4 K/mm3; Total Cells Counted 100
[2020-10-08 19:57] LABS: Large Platelets Rare; Platelet Estimate Consistent w Auto
[2020-10-09] MEDS: traMADol 50 MG TAB PO PRN ×4 (03:51→23:22)
[2020-10-09] MEDS: methylPREDNISolone Sod Succinate 40 MG/1 ML INJ IV SCH ×3 (05:14→22:37)
[2020-10-09] MEDS: guaiFENesin 100 MG/5 ML ORAL LIQD PO PRN ×3 (05:15→22:39)
[2020-10-09] MEDS: hydrALAZINE 25 MG TAB PO SCH ×3 (05:15→22:39)
[2020-10-09] MEDS: ARFORMOTEROL 15 MCG/2 ML NEBU IH SCH ×2 (08:29→20:06)
[2020-10-09] MEDS: BUDESONIDE 0.5 MG/2 ML NEBU IH SCH ×2 (08:29→20:06)
--- NOTE | 2020-10-09 09:28 | Progress Note ---
Assessment and Plan Assessment and plan: COVID-19 test negative x 2 [10/03/2020 and 10/06/2020] --Acute hypoxic respiratory failure; Patient was requiring 3.5 L yesterday, today trial on room air Wean as tolerated, titrate O2 sats more than 90%, nebulizers, IV steroids, IV antibiotics, inhalation steroids Pulmonary following --AFB smears, cultures gold interferon test requested per ID We will place the patient in isolation --Severe sepsis, POA; Secondary to bilateral pneumonia, high procalcitonin levels Continue IV antibiotics, follow cultures --Bilateral pneumonia: Procalcitonin levels high Continue IV antibiotics follow cultures. --Acute bronchial asthma: exacerbation Oxygen, nebulizers, IV steroids, supportive care --Elevated D-dimer; CTA negative for PE --Hypertension; uncontrolled Add hydralazine 25 mg 3 times a day , IV hydralazine as needed Closely monitor blood pressures and adjust the medications as indicated --Ongoing tobacco : Smoking cessation counseling, advised nicotine patch --DVT prophylaxis; Lovenox --Obesity; BMI 37.1 Strongly advised weight reduction, dietary modification, exercise as tolerated Lifestyle changes when medically stable Closely monitor the patient and adjust management as needed Plan of care reviewed with the patient and his nurse Health Safety Specialist recommendations noted and appreciated. Brief history; 39-year-old obese male patient with acute hypoxic respiratory failure secondary to bilateral airspace disease was admitted through emergency room with worsening shortness of breath, possible pneumonia versus atypical pneumonia/Covid COVID-19 test x 2 negative , 10/03/2020 and 10/06/2020. Pulmonary planning bronchoscopy 10/03/2020. Continue IV antibiotics for now and follow-up procalcitonin. Add steroids for asthma exacerbation. Continue bronchodilators. Continue BiPAP 12/ and FiO2 100%. Pulmonary and ID consultations pending. 10/04/2020. Patient still with significant respiratory failure with etiology secondary to likely community-acquired pneumonia and acute asthma exacerbation. Covid testing negative. Start IV steroids and monitor closely. Continue IV antibiotics and follow-up chest x-ray in a.m. Patient counseled on tobacco cessation. Patient still requiring high flow nasal cannula 15 L/min. Continue to wean oxygen as tolerated. Patient will remain in IMCU due to high risk of decompensation given respiratory status. 10/05/2020. Patient still with significant respiratory failure with etiology secondary to likely community-acquired pneumonia and acute asthma exacerbation. Covid testing negative. Continue Solu-Medrol 40 mg IV every 8 hours. Patient still requiring high flow nasal cannula 15 L/min. Continue to wean oxygen as tolerated. Patient will remain in IMCU due to high risk of decompensation given respiratory status. Continue IV antibiotics and follow-up chest x-ray. 10/06/2020; pending repeat Covid test today, possible bronchoscopy when patient makes a decision Patient is still requiring high flow oxygen, wean as tolerated COVID-19 test x2 negative, pulmonary planning bronchoscopy 10/07/2020; AFP smear, gold interferon test, AFB cultures requested To rule out pulmonary tuberculosis, consider isolation COVID-19 test x2 negative, plans of bronchoscopy was on hold 10/08/2020; bronchoscopy pending TB testing, Patient continues to require 10 L nasal cannula oxygen 10/09/2020; TB testing is in progress, patient in isolation Continue current management, bronchoscopy is on hold History Interval history: I have seen and examined the patient at the bedside Patient's oxygen requirements are coming down feels anxious wants to go home Patient is afebrile, vital signs noted Hospitalist Physical - Constitutional Vitals: Temp Pulse Resp BP Pulse Ox 99.0 F 85 20 184/123 96 10/09/20 07:46 10/09/20 08:47 10/09/20 08:47 10/09/20 06:00 10/09/20 08:30 General appearance: Present: no acute distress, well-nourished, obese (Morbidly obese) - EENT Eyes: Present: PERRL, EOM intact - Neck Neck: Present: supple, normal ROM - Respiratory Respiratory effort: normal Respiratory: bilateral: diminished, negative: rales, rhonchi, wheezing - Cardiovascular Rhythm: regular Heart Sounds: Present: S1 & S2 - Extremities Extremities: no ischemia, No edema - Abdominal General gastrointestinal: soft, non-tender, non-distended, normal bowel sounds - Integumentary Integumentary: Present: clear, warm - Psychiatric Psychiatric: appropriate mood/affect, cooperative - Neurologic Neurologic: CNII-XII intact, moves all extremities HEART Score - HEART Score Troponin: Troponin T < 0.010 ng/mL (0.00-0.029) 10/02/20 23:55 Results - Labs CBC & Chem 7: 10/08/20 15:31 10/05/20 04:29 Labs: Laboratory Last Values WBC 13.3 K/mm3 (4.5-11.0) H 10/08/20 15: RBC 4.64 M/mm3 (3.65-5.03) 10/08/20 15:31 Hgb 14.3 gm/dl (11.8-15.2) 10/08/20 15: Hct 42.4 % (35.5-45.6) 10/08/20 15: MCV 91 fl (84-94) 10/08/20 15: MCH 31 pg (28-32) 10/08/20 15: MCHC 34 % (32-34) 10/08/20 15: RDW 14.4 % (13.2-15.2) 10/08/20 15: Plt Count 238 K/mm3 (140-440) 10/08/20 15: Add Manual Diff Complete 10/08/20 15: Total Counted 100 10/08/20 15:31 Seg Neutrophils % Clerical Office Worker 10/02/20 23:36 Seg Neuts % (Manual) 81.0 % (40.0-70.0) H 10/08/20 15: Band Neutrophils % 3.0 % 10/08/20 15: Lymphocytes % (Manual) 11.0 % (13.4-35.0) L 10/08/20 15: Monocytes % (Manual) 5.0 % (0.0-7.3) 10/08/20 15: Nucleated RBC % Not Reportable 10/08/20 15: Seg Neutrophils # Man 10.8 K/mm3 (1.8-7.7) H 10/08/20 15:31 Band Neutrophils # 0.4 K/mm3 10/08/20 15:31 Lymphocytes # (Manual) 1.5 K/mm3 (1.2-5.4) 10/08/20 15: Abs React Lymphs (Man) 0.0 K/mm3 10/08/20 15:31 Monocytes # (Manual) 0.7 K/mm3 (0.0-0.8) 10/08/20 15: Eosinophils # (Manual) 0.0 K/mm3 (0.0-0.4) 10/08/20 15:31 Basophils # (Manual) 0.0 K/mm3 (0.0-0.1) 10/08/20 15:31 Metamyelocytes # 0.0 K/mm3 10/08/20 15:31 Myelocytes # 0.0 K/mm3 10/08/20 15:31 Promyelocytes # 0.0 K/mm3 10/08/20 15:31 Blast Cells # 0.0 K/mm3 10/08/20 15:31 WBC Morphology Not Reportable 10/08/20 15:31 Hypersegmented Neuts Not Reportable 10/08/20 15:31 Hyposegmented Neuts Not Reportable 10/08/20 15:31 Hypogranular Neuts Not Reportable 10/08/20 15:31 Smudge Cells Not Reportable 10/08/20 15:31 Toxic Granulation Not Reportable 10/08/20 15:31 Toxic Vacuolation Not Reportable 10/08/20 15:31 Dohle Bodies Not Reportable 10/08/20 15:31 Pelger-Huet Anomaly Not Reportable 10/08/20 15:31 [place] Rods Not Reportable 10/08/20 15:31 Platelet Estimate Consistent w auto 10/08/20 15:31 Clumped Platelets Not Reportable 10/08/20 15:31 Plt Clumps, EDTA Not Reportable 10/08/20 15:31 Large Platelets Rare 10/08/20 15:31 Giant Platelets Not Reportable 10/08/20 15:31 Platelet Satelliting Not Reportable 10/08/20 15:31 Plt Morphology Comment Not Reportable 10/08/20 15:31 RBC Morphology Not Reportable 10/08/20 15:31 Dimorphic RBCs Not Reportable 10/08/20 15:31 Polychromasia Not Reportable 10/08/20 15:31 Hypochromasia Not Reportable 10/08/20 15:31 Poikilocytosis Not Reportable 10/08/20 15:31 Anisocytosis Not Reportable 10/08/20 15:31 Microcytosis Not Reportable 10/08/20 15:31 Macrocytosis Not Reportable 10/08/20 15:31 Spherocytes Not Reportable 10/08/20 15:31 Pappenheimer Bodies Not Reportable 10/08/20 15:31 Sickle Cells Not Reportable 10/08/20 15:31 Target Cells Not Reportable 10/08/20 15:31 Tear Drop Cells Not Reportable 10/08/20 15:31 Ovalocytes Not Reportable 10/08/20 15:31 Helmet Cells Not Reportable 10/08/20 15:31 Gan-Commercial Point Bodies Not Reportable 10/08/20 15:31 [place] Rings Not Reportable 10/08/20 15:31 [place] Cells Not Reportable 10/08/20 15:31 Bite Cells Not Reportable 10/08/20 15:31 Crenated Cell Not Reportable 10/08/20 15:31 Elliptocytes Not Reportable 10/08/20 15:31 Acanthocytes (Spur) Not Reportable 10/08/20 15:31 Rouleaux Not Reportable 10/08/20 15:31 Hemoglobin C Crystals Not Reportable 10/08/20 15:31 Schistocytes Not Reportable 10/08/20 15:31 Malaria parasites Not Reportable 10/08/20 15:31 [place] Bodies Not Reportable 10/08/20 15:31 Hem Pathologist Commnt No 10/08/20 15:31 D-Dimer 963.03 ng/mlDDU (0-234) H 10/02/20 23:55 Sodium 139 mmol/L (137-145) 10/05/20 04:29 Potassium 4.9 mmol/L (3.6-5.0) 10/05/20 04:29 Chloride 106.3 mmol/L (98-107) 10/05/20 04:29 Carbon Dioxide 23 mmol/L (22-30) 10/05/20 04:29 Anion Gap 15 mmol/L 10/05/20 04:29 BUN 14 mg/dL (9-20) 10/05/20 04:29 Creatinine 1.0 mg/dL (0.8-1.3) 10/05/20 04:29 Estimated GFR > 60 ml/min 10/05/20 04:29 BUN/Creatinine Ratio 14 % 10/05/20 04:29 Glucose 136 mg/dL (75-100) H 10/05/20 04:29 POC Glucose 105 mg/dL (70-105) 10/08/20 21:53 Lactic Acid 1.40 mmol/L (0.7-2.0) 10/03/20 05:34 Calcium 8.7 mg/dL (8.4-10.2) 10/05/20 04:29 Magnesium 2.30 mg/dL (1.7-2.3) 10/05/20 04:29 Ferritin 349.5 ng/mL (30.0-300.0) H 10/02/20 23:55 Total Bilirubin 1.70 mg/dL (0.1-1.2) H 10/02/20 23:36 AST 67 units/L (5-40) H 10/02/20 23:36 ALT 36 units/L (7-56) 10/02/20 23:36 Alkaline Phosphatase 66 units/L (35-129) 10/02/20 23:36 Lactate Dehydrogenase 554 units/L (91-180) H 10/02/20 23:55 Troponin T < 0.010 ng/mL (0.00-0.029) 10/02/20 23:55 C-Reactive Protein 0.70 mg/dL (0.00-1.30) 10/07/20 14:42 NT-Pro-B Natriuret Pep 1122 pg/mL (0-450) H 10/05/20 13:31 Total Protein 7.3 g/dL (6.3-8.2) 10/02/20 23:36 Albumin 4.3 g/dL (3.9-5) 10/02/20 23:36 Albumin/Globulin Ratio 1.4 % 10/02/20 23:36 Procalcitonin 4.38 ng/mL (<0.15) 10/05/20 14:17 Urine Color Yellow (Yellow) 10/03/20 07:50 Urine Turbidity Clear (Clear) 10/03/20 07:50 Urine pH 5.0 (5.0-7.0) 10/03/20 07:50 Ur Specific [place] 1.034 (1.003-1.030) H 10/03/20 07:50 Urine Protein <15 mg/dl mg/dL (Negative) 10/03/20 07:50 Urine Glucose (UA) Neg mg/dL (Negative) 10/03/20 07:50 Urine Ketones Tr mg/dL (Negative) 10/03/20 07:50 Urine Blood Neg (Negative) 10/03/20 07:50 Urine Nitrite Neg (Negative) 10/03/20 07:50 Urine Bilirubin Neg (Negative) 10/03/20 07:50 Urine Urobilinogen < 2.0 mg/dL (<2.0) 10/03/20 07:50 Ur Leukocyte Esterase Neg (Negative) 10/03/20 07:50 Urine WBC (Auto) 0.0 /HPF (0.0-6.0) 10/03/20 07:50 Urine RBC (Auto) 1.0 /HPF (0.0-6.0) 10/03/20 07:50 Urine Mucus Few /HPF 10/03/20 07:50 Coronavirus (PCR) Negative (Negative) 10/06/20 Unknown HIV-1 RNA PCR copies/ml <20 Copies/mL 10/05/20 17:41 HIV-1 RNA (PCR) log <1.30 Log cps/mL 10/05/20 17:41 HIV 1&2 Antibody Rapid Non react (Non React) 10/05/20 13:31 HIV P24 Antigen Non react (Non React) 10/05/20 13:31 AFB Identification 10/06/20 01:30 Ruiz/IV: Voiding Method Urinal Active Medications - Current Medications Current Medications: Generic Name Dose Route Start Last Admin Trade Name Freq PRN Reason Stop Dose Admin Acetaminophen 650 mg 10/03/20 02:15 10/06/20 14:05 Acetaminophen 325 Mg Tab PO 650 mg Q4H PRN Administration Fever >101 Al Hydrox/Mg Hydrox/Simethicone 15 ml 10/03/20 01:56 Alum-Mag Hydroxide-Simethicone [phone]/5ml Oral Liqd 30 Ml PO Q4H PRN Indigestion Albuterol 2.5 mg 10/03/20 01:45 10/04/20 13:40 Albuterol 2.5 Mg/3 Ml Nebu IH 2.5 mg Q4HRT PRN Administration Shortness Of Breath Arformoterol Tartrate 15 mcg 10/03/20 11:00 10/09/20 08:29 Arformoterol 15 Mcg/2 Ml Nebu IH 15 mcg Q12HRT DEBORAH Administration Budesonide 0.5 mg 10/06/20 09:30 10/09/20 08:29 Budesonide 0.5 Mg/2 Ml Nebu IH 0.5 mg Q12HRT DEBORAH Administration Enoxaparin Sodium 40 mg 10/03/20 10:00 10/08/20 09:24 Enoxaparin 40 Mg/0.4 Ml Inj SUB-Q 40 mg DAILY DEBORAH Administration Protocol Guaifenesin 200 mg 10/06/20 04:44 10/09/20 05:15 Guaifenesin 100 Mg/5 Ml Oral Liqd PO 200 mg Q4H PRN Administration Cough Hydralazine HCl 5 mg 10/03/20 01:47 10/08/20 15:21 Hydralazine 20 Mg/1 Ml Inj IV 5 mg Q4H PRN Administration Hypertension Hydralazine HCl 25 mg 10/08/20 17:00 10/09/20 05:15 Hydralazine 25 Mg Tab PO 25 mg Q8HR DEBORAH Administration Sodium Chloride 1,000 mls @ 75 mls/hr 10/03/20 03:45 10/08/20 19:39 Nacl 0.9% 1000 Ml IV 75 mls/hr DIRECT DEBORAH Administration Lisinopril 40 mg 10/03/20 22:00 10/08/20 22:32 Lisinopril 40 Mg Tab PO 40 mg BID DEBORAH Administration Methylprednisolone Sodium Succinate 40 mg 10/06/20 14:00 10/09/20 05:14 Methylprednisolone Sod Succinate 40 Mg/1 Ml Inj IV 40 mg Q8HR DEBORAH Administration Nicotine 14 mg 10/04/20 10:00 10/08/20 09:25 Nicotine 14 Mg/24 Hr Patch TD Not Given QDAY DEBORAH Ondansetron HCl 4 mg 10/03/20 01:56 Ondansetron 4 Mg/2 Ml Inj IV Q4H PRN Nausea And Vomiting Senna 8.6 mg 10/03/20 01:56 Sennosides 8.6 Mg Tab PO Q12H PRN Laxative Effect Tramadol HCl 50 mg 10/03/20 01:43 10/09/20 08:56 Tramadol 50 Mg Tab PO 50 mg Q4H PRN Administration Pain, Moderate (4-6) Trazodone HCl 50 mg 10/03/20 01:43 10/07/20 21:23 Trazodone 50 Mg Tab PO 50 mg QHS PRN Administration Insomnia
[2020-10-09] MEDS: ENOXAPARIN 40 MG/0.4 ML INJ SUB-Q SCH (10:01)
[2020-10-09] MEDS: NICOTINE 14 MG/24 HR PATCH TD SCH (10:02)
[2020-10-09] MEDS: LISINOPRIL 40 MG TAB PO SCH ×2 (10:02→22:38)
--- NOTE | 2020-10-09 12:35 | Progress Note ---
Assessment and Plan Cultures: Blood culture 10/03/2020 no growth today AFB x1 neg Assessment: 39 years old male with history of tobacco abuse, asthma, hypertension, obesity admitted on 10/02/2020 secondary to a week history of cough, shortness of breath, nasal congestion, wheezing associated with body aches and fever/chills: #Severe sepsis: Fever resolved, procalcitonin worsening 1.1-->4.3, leukocytosis; likely secondary to bilateral pneumonia #Bilateral pneumonia: Of unclear etiology. Recently released after 2 years in senior care now homeless. SARS-CoV-2 PCR negative x 2. HIV rapid test neg. Noted elevated D-dimer at night 63, mild elevated ferritin, CRP. CTA shows extensive bilateral pneumonia no PE. Legs ultrasound no DVT. ?pulmonary TB ?CAP. CRP 0.2. #Acute hypoxemic respiratory failure: Resolved #Tobacco abuse #Asthma exacerbation #Transaminitis: Mild. Recommendations: -Patient wants to go home, needs AFB x3 neg -AFB x3 ordered pending, AFB x 1 neg -QuantiFERON TB Gold ordered pending -Follow-up JOSE F -Completed 5 days of ceftriaxone and azithromycin -Obtain Legionella urine antigen and strep urine ag, pending Will follow. Okay to discharge home if AFP negative x3 Filomena Powers MD Infectious Diseases [employer] [facility] ([facility]) M [phone] O [phone] Subjective Date of service: 10/09/20 Principal diagnosis: Bilateral pneumonia Interval history: Patient feels great, off oxygen, no complaints, desires to go home Objective - Exam Narrative Exam: General appearance: Alert in no acute distress Eyes: anicteric sclerae, moist conjunctivae; no lid-lag; PERRLA HENT: Normocephalic, Atraumatic; normal external ears, nares open, oropharynx clear Neck: supple, tracheal midline, no JVD Lungs: Clear to auscultation anteriorly CV: RRR no murmur Abdomen: Soft, non-tender Extremities: no edema, no cyanosis Skin: No rash. Psych: no agitated Neuro: alert and oriented x 3. Moving all extermities - Constitutional Vitals: Vital Signs Temp Pulse Resp BP Pulse Ox 99.0 F 85 28 H 151/73 93 10/09/20 07:46 10/09/20 11:00 10/09/20 11:00 10/09/20 11:00 10/09/20 11:00 Temperature -Last 24 Hours Temperature 99.0 F Temperature 98.2 F Temperature 98.8 F Temperature 98.8 F Temperature 98.1 F - Labs CBC & Chem 7: 10/08/20 15:31 10/05/20 04:29 Labs: Abnormal lab results 10/08/20 10/09/20 10/09/20 Range/Units 15:31 08:08 12:07 WBC 13.3 H (4.5-11.0) K/mm3 Seg Neuts % (Manual) 81.0 H (40.0-70.0) % Lymphocytes % (Manual) 11.0 L (13.4-35.0) % Seg Neutrophils # Man 10.8 H (1.8-7.7) K/mm3 POC Glucose 183 H 137 H (70-105) mg/dL
[2020-10-09] MEDS: ACETAMINOPHEN 325 MG TAB PO PRN (20:28)
[2020-10-10] MEDS: methylPREDNISolone Sod Succinate 40 MG/1 ML INJ IV SCH ×3 (06:50→21:46)
[2020-10-10] MEDS: hydrALAZINE 25 MG TAB PO SCH ×3 (06:50→21:56)
[2020-10-10] MEDS: BUDESONIDE 0.5 MG/2 ML NEBU IH SCH ×2 (08:25→21:55)
[2020-10-10] MEDS: ARFORMOTEROL 15 MCG/2 ML NEBU IH SCH ×2 (08:26→21:56)
[2020-10-10] MEDS: ENOXAPARIN 40 MG/0.4 ML INJ SUB-Q SCH (10:03)
[2020-10-10] MEDS: NICOTINE 14 MG/24 HR PATCH TD SCH (10:03)
[2020-10-10] MEDS: LISINOPRIL 40 MG TAB PO SCH ×2 (10:04→21:59)
[2020-10-10] MEDS: guaiFENesin 100 MG/5 ML ORAL LIQD PO PRN ×3 (10:05→21:46)
--- NOTE | 2020-10-10 11:32 | Progress Note ---
Assessment and Plan Assessment and plan: COVID-19 test negative x 2 [10/03/2020 and 10/06/2020] --Acute hypoxic respiratory failure; Patient was requiring 3.5 L yesterday, today trial on room air Wean as tolerated, titrate O2 sats more than 90%, nebulizers, IV steroids, IV antibiotics, inhalation steroids Pulmonary following --AFB smears, cultures gold interferon test requested per ID We will place the patient in isolation --Severe sepsis, POA; Secondary to bilateral pneumonia, high procalcitonin levels Continue IV antibiotics, follow cultures --Bilateral pneumonia: Procalcitonin levels high Continue IV antibiotics follow cultures. --Acute bronchial asthma: exacerbation Oxygen, nebulizers, IV steroids, supportive care --Elevated D-dimer; CTA negative for PE --Hypertension; uncontrolled Add hydralazine 25 mg 3 times a day , IV hydralazine as needed Closely monitor blood pressures and adjust the medications as indicated --Ongoing tobacco : Smoking cessation counseling, advised nicotine patch --DVT prophylaxis; Lovenox --Obesity; BMI 37.1 Strongly advised weight reduction, dietary modification, exercise as tolerated Lifestyle changes when medically stable Closely monitor the patient and adjust management as needed Plan of care reviewed with the patient and his nurse Network Operations Center Engineer recommendations noted and appreciated. Brief history; 39-year-old obese male patient with acute hypoxic respiratory failure secondary to bilateral airspace disease was admitted through emergency room with worsening shortness of breath, possible pneumonia versus atypical pneumonia/Covid COVID-19 test x 2 negative , 10/03/2020 and 10/06/2020. Pulmonary planning bronchoscopy 10/03/2020. Continue IV antibiotics for now and follow-up procalcitonin. Add steroids for asthma exacerbation. Continue bronchodilators. Continue BiPAP 12/ and FiO2 100%. Pulmonary and ID consultations pending. 10/04/2020. Patient still with significant respiratory failure with etiology secondary to likely community-acquired pneumonia and acute asthma exacerbation. Covid testing negative. Start IV steroids and monitor closely. Continue IV antibiotics and follow-up chest x-ray in a.m. Patient counseled on tobacco cessation. Patient still requiring high flow nasal cannula 15 L/min. Continue to wean oxygen as tolerated. Patient will remain in IMCU due to high risk of decompensation given respiratory status. 10/05/2020. Patient still with significant respiratory failure with etiology secondary to likely community-acquired pneumonia and acute asthma exacerbation. Covid testing negative. Continue Solu-Medrol 40 mg IV every 8 hours. Patient still requiring high flow nasal cannula 15 L/min. Continue to wean oxygen as tolerated. Patient will remain in IMCU due to high risk of decompensation given respiratory status. Continue IV antibiotics and follow-up chest x-ray. 10/06/2020; pending repeat Covid test today, possible bronchoscopy when patient makes a decision Patient is still requiring high flow oxygen, wean as tolerated COVID-19 test x2 negative, pulmonary planning bronchoscopy 10/07/2020; AFP smear, gold interferon test, AFB cultures requested To rule out pulmonary tuberculosis, consider isolation COVID-19 test x2 negative, plans of bronchoscopy was on hold 10/08/2020; bronchoscopy pending TB testing, Patient continues to require 10 L nasal cannula oxygen 10/09/2020; TB testing is in progress, patient in isolation Continue current management, bronchoscopy is on hold 10/10/2020; 2 sets of sputum for AFB negative, pending AFB cultures and third test of sputum for AFB History Interval history: I have seen and examined the patient at the bedside Patient is in airborne isolation , ruling out pulmonary tuberculosis Sputum for AFB x2 -, Pending AFB cultures Patient patient had some vague chest pain this morning EKG nonspecific changes, check 1 set of cardiac enzymes. No other complaints Vital signs noted Hospitalist Physical - Constitutional Vitals: Temp Pulse Resp BP Pulse Ox 98.6 F 70 20 163/104 95 10/10/20 03:37 10/10/20 10:04 10/10/20 08:27 10/10/20 10:04 10/10/20 08:26 General appearance: Present: no acute distress, well-nourished, obese (Morbidly obese) - EENT Eyes: Present: PERRL, EOM intact - Neck Neck: Present: supple, normal ROM - Respiratory Respiratory effort: normal Respiratory: bilateral: diminished, negative: rales, rhonchi, wheezing - Cardiovascular Rhythm: regular Heart Sounds: Present: S1 & S2 - Extremities Extremities: no ischemia, No edema - Abdominal General gastrointestinal: soft, non-tender, non-distended, normal bowel sounds - Integumentary Integumentary: Present: clear, warm - Psychiatric Psychiatric: appropriate mood/affect, cooperative - Neurologic Neurologic: CNII-XII intact, moves all extremities HEART Score - HEART Score Troponin: Troponin T < 0.010 ng/mL (0.00-0.029) 10/02/20 23:55 Results - Labs CBC & Chem 7: 10/08/20 15:31 10/05/20 04:29 Labs: Laboratory Last Values WBC 13.3 K/mm3 (4.5-11.0) H 10/08/20 15:31 RBC 4.64 M/mm3 (3.65-5.03) 10/08/20 15:31 Hgb 14.3 gm/dl (11.8-15.2) 10/08/20 15:31 Hct 42.4 % (35.5-45.6) 10/08/20 15:31 MCV 91 fl (84-94) 10/08/20 15:31 MCH 31 pg (28-32) 10/08/20 15: MCHC 34 % (32-34) 10/08/20 15:31 RDW 14.4 % (13.2-15.2) 10/08/20 15:31 Plt Count 238 K/mm3 (140-440) 10/08/20 15:31 Add Manual Diff Complete 10/08/20 15:31 Total Counted 100 10/08/20 15:31 Seg Neutrophils % Architectural Technologist 10/02/20 23:36 Seg Neuts % (Manual) 81.0 % (40.0-70.0) H 10/08/20 15:31 Band Neutrophils % 3.0 % 10/08/20 15:31 Lymphocytes % (Manual) 11.0 % (13.4-35.0) L 10/08/20 15:31 Monocytes % (Manual) 5.0 % (0.0-7.3) 10/08/20 15:31 Nucleated RBC % Not Reportable 10/08/20 15:31 Seg Neutrophils # Man 10.8 K/mm3 (1.8-7.7) H 10/08/20 15:31 Band Neutrophils # 0.4 K/mm3 10/08/20 15:31 Lymphocytes # (Manual) 1.5 K/mm3 (1.2-5.4) 10/08/20 15:31 Abs React Lymphs (Man) 0.0 K/mm3 10/08/20 15:31 Monocytes # (Manual) 0.7 K/mm3 (0.0-0.8) 10/08/20 15:31 Eosinophils # (Manual) 0.0 K/mm3 (0.0-0.4) 10/08/20 15:31 Basophils # (Manual) 0.0 K/mm3 (0.0-0.1) 10/08/20 15:31 Metamyelocytes # 0.0 K/mm3 10/08/20 15:31 Myelocytes # 0.0 K/mm3 10/08/20 15:31 Promyelocytes # 0.0 K/mm3 10/08/20 15:31 Blast Cells # 0.0 K/mm3 10/08/20 15:31 WBC Morphology Not Reportable 10/08/20 15:31 Hypersegmented Neuts Not Reportable 10/08/20 15:31 Hyposegmented Neuts Not Reportable 10/08/20 15:31 Hypogranular Neuts Not Reportable 10/08/20 15:31 Smudge Cells Not Reportable 10/08/20 15:31 Toxic Granulation Not Reportable 10/08/20 15:31 Toxic Vacuolation Not Reportable 10/08/20 15:31 Dohle Bodies Not Reportable 10/08/20 15:31 Pelger-Huet Anomaly Not Reportable 10/08/20 15:31 [place] Rods Not Reportable 10/08/20 15:31 Platelet Estimate Consistent w auto 10/08/20 15:31 Clumped Platelets Not Reportable 10/08/20 15:31 Plt Clumps, EDTA Not Reportable 10/08/20 15:31 Large Platelets Rare 10/08/20 15:31 Giant Platelets Not Reportable 10/08/20 15:31 Platelet Satelliting Not Reportable 10/08/20 15:31 Plt Morphology Comment Not Reportable 10/08/20 15:31 RBC Morphology Not Reportable 10/08/20 15:31 Dimorphic RBCs Not Reportable 10/08/20 15:31 Polychromasia Not Reportable 10/08/20 15:31 Hypochromasia Not Reportable 10/08/20 15:31 Poikilocytosis Not Reportable 10/08/20 15:31 Anisocytosis Not Reportable 10/08/20 15:31 Microcytosis Not Reportable 10/08/20 15:31 Macrocytosis Not Reportable 10/08/20 15:31 Spherocytes Not Reportable 10/08/20 15:31 Pappenheimer Bodies Not Reportable 10/08/20 15:31 Sickle Cells Not Reportable 10/08/20 15:31 Target Cells Not Reportable 10/08/20 15:31 Tear Drop Cells Not Reportable 10/08/20 15:31 Ovalocytes Not Reportable 10/08/20 15:31 Helmet Cells Not Reportable 10/08/20 15:31 [place] Bodies Not Reportable 10/08/20 15:31 [place] Rings Not Reportable 10/08/20 15:31 Salley Cells Not Reportable 10/08/20 15:31 Bite Cells Not Reportable 10/08/20 15:31 Crenated Cell Not Reportable 10/08/20 15:31 Elliptocytes Not Reportable 10/08/20 15:31 Acanthocytes (Spur) Not Reportable 10/08/20 15:31 Rouleaux Not Reportable 10/08/20 15:31 Hemoglobin C Crystals Not Reportable 10/08/20 15:31 Schistocytes Not Reportable 10/08/20 15:31 Malaria parasites Not Reportable 10/08/20 15:31 [place] Bodies Not Reportable 10/08/20 15:31 Hem Pathologist Commnt No 10/08/20 15:31 D-Dimer 963.03 ng/mlDDU (0-234) H 10/02/20 23:55 Sodium 139 mmol/L (137-145) 10/05/20 04:29 Potassium 4.9 mmol/L (3.6-5.0) 10/05/20 04:29 Chloride 106.3 mmol/L (98-107) 10/05/20 04:29 Carbon Dioxide 23 mmol/L (22-30) 10/05/20 04:29 Anion Gap 15 mmol/L 10/05/20 04:29 BUN 14 mg/dL (9-20) 10/05/20 04:29 Creatinine 1.0 mg/dL (0.8-1.3) 10/05/20 04:29 Estimated GFR > 60 ml/min 10/05/20 04:29 BUN/Creatinine Ratio 14 % 10/05/20 04:29 Glucose 136 mg/dL (75-100) H 10/05/20 04:29 POC Glucose 124 mg/dL (70-105) H 10/10/20 07:29 Lactic Acid 1.40 mmol/L (0.7-2.0) 10/03/20 05:34 Calcium 8.7 mg/dL (8.4-10.2) 10/05/20 04:29 Magnesium 2.30 mg/dL (1.7-2.3) 10/05/20 04:29 Ferritin 349.5 ng/mL (30.0-300.0) H 10/02/20 23:55 Total Bilirubin 1.70 mg/dL (0.1-1.2) H 10/02/20 23:36 AST 67 units/L (5-40) H 10/02/20 23:36 ALT 36 units/L (7-56) 10/02/20 23:36 Alkaline Phosphatase 66 units/L (35-129) 10/02/20 23:36 Lactate Dehydrogenase 554 units/L (91-180) H 10/02/20 23:55 Troponin T < 0.010 ng/mL (0.00-0.029) 10/02/20 23:55 C-Reactive Protein 0.70 mg/dL (0.00-1.30) 10/07/20 14:42 NT-Pro-B Natriuret Pep 1122 pg/mL (0-450) H 10/05/20 13:31 Total Protein 7.3 g/dL (6.3-8.2) 10/02/20 23:36 Albumin 4.3 g/dL (3.9-5) 10/02/20 23:36 Albumin/Globulin Ratio 1.4 % 10/02/20 23:36 Procalcitonin 4.38 ng/mL (<0.15) 10/05/20 14:17 Urine Color Yellow (Yellow) 10/03/20 07:50 Urine Turbidity Clear (Clear) 10/03/20 07:50 Urine pH 5.0 (5.0-7.0) 10/03/20 07:50 Ur Specific [place] 1.034 (1.003-1.030) H 10/03/20 07:50 Urine Protein <15 mg/dl mg/dL (Negative) 10/03/20 07:50 Urine Glucose (UA) Neg mg/dL (Negative) 10/03/20 07:50 Urine Ketones Tr mg/dL (Negative) 10/03/20 07:50 Urine Blood Neg (Negative) 10/03/20 07:50 Urine Nitrite Neg (Negative) 10/03/20 07:50 Urine Bilirubin Neg (Negative) 10/03/20 07:50 Urine Urobilinogen < 2.0 mg/dL (<2.0) 10/03/20 07:50 Ur Leukocyte Esterase Neg (Negative) 10/03/20 07:50 Urine WBC (Auto) 0.0 /HPF (0.0-6.0) 10/03/20 07:50 Urine RBC (Auto) 1.0 /HPF (0.0-6.0) 10/03/20 07:50 Urine Mucus Few /HPF 10/03/20 07:50 Coronavirus (PCR) Negative (Negative) 10/06/20 Unknown HIV-1 RNA PCR copies/ml <20 Copies/mL 10/05/20 17:41 HIV-1 RNA (PCR) log <1.30 Log cps/mL 10/05/20 17:41 HIV 1&2 Antibody Rapid Non react (Non React) 10/05/20 13:31 HIV P24 Antigen Non react (Non React) 10/05/20 13:31 AFB Identification 10/08/20 08:30 Ruiz/IV: Voiding Method Toilet Active Medications - Current Medications Current Medications: Generic Name Dose Route Start Last Admin Trade Name Freq PRN Reason Stop Dose Admin Acetaminophen 650 mg 10/03/20 02:15 10/09/20 20:28 Acetaminophen 325 Mg Tab PO 650 mg Q4H PRN Administration Fever >101 Al Hydrox/Mg Hydrox/Simethicone 15 ml 10/03/20 01:56 Alum-Mag Hydroxide-Simethicone [id number]/5ml Oral Liqd 30 Ml PO Q4H PRN Indigestion Albuterol 2.5 mg 10/03/20 01:45 10/04/20 13:40 Albuterol 2.5 Mg/3 Ml Nebu IH 2.5 mg Q4HRT PRN Administration Shortness Of Breath Arformoterol Tartrate 15 mcg 10/03/20 11:00 10/10/20 08:26 Arformoterol 15 Mcg/2 Ml Nebu IH 15 mcg Q12HRT DEBORAH Administration Budesonide 0.5 mg 10/06/20 09:30 10/10/20 08:25 Budesonide 0.5 Mg/2 Ml Nebu IH 0.5 mg Q12HRT DEBORAH Administration Enoxaparin Sodium 40 mg 10/03/20 10:00 10/10/20 10:03 Enoxaparin 40 Mg/0.4 Ml Inj SUB-Q 40 mg DAILY DEBORAH Administration Protocol Guaifenesin 200 mg 10/06/20 04:44 10/10/20 10:05 Guaifenesin 100 Mg/5 Ml Oral Liqd PO 200 mg Q4H PRN Administration Cough Hydralazine HCl 5 mg 10/03/20 01:47 10/08/20 15:21 Hydralazine 20 Mg/1 Ml Inj IV 5 mg Q4H PRN Administration Hypertension Hydralazine HCl 25 mg 10/08/20 17:00 10/10/20 06:50 Hydralazine 25 Mg Tab PO 25 mg Q8HR DEBORAH Administration Sodium Chloride 1,000 mls @ 75 mls/hr 10/03/20 03:45 10/08/20 19:39 Nacl 0.9% 1000 Ml IV 75 mls/hr DIRECT DEBORAH Administration Lisinopril 40 mg 10/03/20 22:00 10/10/20 10:04 Lisinopril 40 Mg Tab PO 40 mg BID DEBORAH Administration Methylprednisolone Sodium Succinate 40 mg 10/06/20 14:00 10/10/20 06:50 Methylprednisolone Sod Succinate 40 Mg/1 Ml Inj IV 40 mg Q8HR DEBORAH Administration Nicotine 14 mg 10/04/20 10:00 10/10/20 10:03 Nicotine 14 Mg/24 Hr Patch TD Not Given QDAY [facility] Ondansetron HCl 4 mg 10/03/20 01:56 Ondansetron 4 Mg/2 Ml Inj IV Q4H PRN Nausea And Vomiting Senna 8.6 mg 10/03/20 01:56 Sennosides 8.6 Mg Tab PO Q12H PRN Laxative Effect Tramadol HCl 50 mg 10/03/20 01:43 10/09/20 23:22 Tramadol 50 Mg Tab PO 50 mg Q4H PRN Administration Pain, Moderate (4-6) Trazodone HCl 50 mg 10/03/20 01:43 10/07/20 21:23 Trazodone 50 Mg Tab PO 50 mg QHS PRN Administration Insomnia Nutrition/Malnutrition Assess - Dietary Evaluation Nutrition/Malnutrition Findings: Nutrition Notes Start: 10/09/20 12:36 Freq: Status: Active Protocol: Document 10/09/20 12:36 LP (Rec: 10/09/20 12:37 LP [id number]) Nutrition Notes 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 Pt did not answer phone. Nutrition Intervention Follow-Up By: 10/12/20 Additional Comments Follow for LOS assessment needs
[2020-10-10 14:03] LABS: Creatine Kinase MB 8.1 ng/mL (0.0-4.0)
[2020-10-10] MEDS: traMADol 50 MG TAB PO PRN (14:50)
[2020-10-10] MEDS ORDERED: PNEUMOCOCCAL 23 Valent 0.5 ML VIAL IM ONE (15:00)
[2020-10-10] MEDS: hydrALAZINE 20 MG/1 ML INJ IV PRN (17:36)
[2020-10-10] MEDS ORDERED: hydrALAZINE 20 MG/1 ML INJ IV ONE ×2 (18:55→18:57)
[2020-10-10] MEDS: traZODone 50 MG TAB PO PRN (22:00)
[2020-10-10] MEDS: ACETAMINOPHEN 325 MG TAB PO PRN (22:07)
[2020-10-11] MEDS: hydrALAZINE 25 MG TAB PO SCH ×3 (06:51→21:27)
[2020-10-11] MEDS: methylPREDNISolone Sod Succinate 40 MG/1 ML INJ IV SCH ×3 (06:51→21:28)
[2020-10-11] MEDS: ARFORMOTEROL 15 MCG/2 ML NEBU IH SCH ×2 (07:46→20:54)
[2020-10-11] MEDS: BUDESONIDE 0.5 MG/2 ML NEBU IH SCH ×2 (07:46→20:54)
[2020-10-11] MEDS: ENOXAPARIN 40 MG/0.4 ML INJ SUB-Q SCH (09:17)
[2020-10-11] MEDS: guaiFENesin 100 MG/5 ML ORAL LIQD PO PRN (09:17)
[2020-10-11] MEDS: LISINOPRIL 40 MG TAB PO SCH ×2 (09:17→21:27)
[2020-10-11] MEDS: NICOTINE 14 MG/24 HR PATCH TD SCH (09:18)
[2020-10-11] MEDS: traMADol 50 MG TAB PO PRN ×2 (09:18→21:31)
[2020-10-11] MEDS: hydrALAZINE 20 MG/1 ML INJ IV PRN (10:54)
--- NOTE | 2020-10-11 11:00 | Progress Note ---
Assessment and Plan Assessment and plan: COVID-19 test negative x 2 [10/03/2020 and 10/06/2020] --Acute hypoxic respiratory failure; Patient was requiring 3.5 L yesterday, today on 2lt NC o2 Wean as tolerated, titrate O2 sats more than 90%, nebulizers, IV steroids, IV antibiotics, inhalation steroids Pulmonary following --AFB smears, x2 negative , follow rest of the work-up AFP cultures, gold interferon test requested per ID Continue airborne isolation --Severe sepsis, POA; Secondary to bilateral pneumonia, high procalcitonin levels Continue IV antibiotics, follow cultures --Bilateral pneumonia: Procalcitonin levels high Continue IV antibiotics follow cultures. --Acute bronchial asthma: exacerbation Oxygen, nebulizers, IV steroids, supportive care --Elevated D-dimer; CTA negative for PE --Hypertension; uncontrolled Add hydralazine 25 mg 3 times a day , IV hydralazine as needed Closely monitor blood pressures and adjust the medications as indicated --Ongoing tobacco : Smoking cessation counseling, advised nicotine patch --DVT prophylaxis; Lovenox --Obesity; BMI 37.1 Strongly advised weight reduction, dietary modification, exercise as tolerated Lifestyle changes when medically stable Closely monitor the patient and adjust management as needed Plan of care reviewed with the patient and his nurse Maintenance Supervisor Mechanical recommendations noted and appreciated. Brief history; 39-year-old obese male patient with acute hypoxic respiratory failure secondary to bilateral airspace disease was admitted through emergency room with worsening shortness of breath, possible pneumonia versus atypical pneumonia/Covid COVID-19 test x 2 negative , 10/03/2020 and 10/06/2020. Pulmonary planning bronchoscopy 10/03/2020. Continue IV antibiotics for now and follow-up procalcitonin. Add steroids for asthma exacerbation. Continue bronchodilators. Continue BiPAP 12/ and FiO2 100%. Pulmonary and ID consultations pending. 10/04/2020. Patient still with significant respiratory failure with etiology secondary to likely community-acquired pneumonia and acute asthma exacerbation. Covid testing negative. Start IV steroids and monitor closely. Continue IV antibiotics and follow-up chest x-ray in a.m. Patient counseled on tobacco c essation. Patient still requiring high flow nasal cannula 15 L/min. Continue to wean oxygen as tolerated. Patient will remain in IMCU due to high risk of decompensation given respiratory status. 10/05/2020. Patient still with significant respiratory failure with etiology secondary to likely community-acquired pneumonia and acute asthma exacerbation. Covid testing negative. Continue Solu-Medrol 40 mg IV every 8 hours. Patient still requiring high flow nasal cannula 15 L/min. Continue to wean oxygen as tolerated. Patient will remain in IMCU due to high risk of decompensation given respiratory status. Continue IV antibiotics and follow-up chest x-ray. 10/06/2020; pending repeat Covid test today, possible bronchoscopy when patient makes a decision Patient is still requiring high flow oxygen, wean as tolerated COVID-19 test x2 negative, pulmonary planning bronchoscopy 10/07/2020; AFP smear, gold interferon test, AFB cultures requested To rule out pulmonary tuberculosis, consider isolation COVID-19 test x2 negative, plans of bronchoscopy was on hold 10/08/2020; bronchoscopy pending TB testing, Patient continues to require 10 L nasal cannula oxygen 10/09/2020; TB testing is in progress, patient in isolation Continue current management, bronchoscopy is on hold 10/10/2020; 2 sets of sputum for AFB negative, pending AFB cultures and third test of sputum for AFB 10/11/2020; continue to follow AFB cultures, pending AFB smears and rest of the TB work-up Patient is anxious to go home, pulmonary and ID following History Interval history: I have seen and examined the patient at the bedside Patient is in airborne isolation, to rule out tuberculosis Work-up is in progress,ID following AFB smears x2 -, pending rest of the smears and AFB cultures Patient has no new complaints Anxious to go home Vital signs reviewed Hospitalist Physical - Constitutional Vitals: Temp Pulse Resp BP Pulse Ox 98.3 F 83 18 171/103 97 10/11/20 07:31 10/11/20 10:54 10/11/20 10:53 10/11/20 10:54 10/11/20 10:53 General appearance: Present: no acute distress, well-nourished, obese (Morbidly obese) - EENT Eyes: Present: PERRL, EOM intact - Neck Neck: Present: supple, normal ROM - Respiratory Respiratory effort: normal Respiratory: bilateral: diminished, negative: rales, rhonchi, wheezing - Cardiovascular Rhythm: regular Heart Sounds: Present: S1 & S2 - Extremities Extremities: no ischemia, No edema - Abdominal General gastrointestinal: soft, non-tender, non-distended, normal bowel sounds - Integumentary Integumentary: Present: clear, warm - Psychiatric Psychiatric: appropriate mood/affect, cooperative - Neurologic Neurologic: CNII-XII intact, moves all extremities HEART Score - HEART Score Troponin: Troponin T < 0.010 ng/mL (0.00-0.029) 10/10/20 12:45 Results - Labs CBC & Chem 7: 10/08/20 15:31 10/05/20 04:29 Labs: Laboratory Last Values WBC 13.3 K/mm3 (4.5-11.0) H 10/08/20 15:31 RBC 4.64 M/mm3 (3.65-5.03) 10/08/20 15:31 Hgb 14.3 gm/dl (11.8-15.2) 10/08/20 15:31 Hct 42.4 % (35.5-45.6) 10/08/20 15:31 MCV 91 fl (84-94) 10/08/20 15:31 MCH 31 pg (28-32) 10/08/20 15:31 MCHC 34 % (32-34) 10/08/20 15:31 RDW 14.4 % (13.2-15.2) 10/08/20 15:31 Plt Count 238 K/mm3 (140-440) 10/08/20 15:31 Add Manual Diff Complete 10/08/20 15:31 Total Counted 100 10/08/20 15:31 Seg Neutrophils % Heavy Mobile Equipment Repairer 10/02/20 23:36 Seg Neuts % (Manual) 81.0 % (40.0-70.0) H 10/08/20 15:31 Band Neutrophils % 3.0 % 10/08/20 15:31 Lymphocytes % (Manual) 11.0 % (13.4-35.0) L 10/08/20 15:31 Monocytes % (Manual) 5.0 % (0.0-7.3) 10/08/20 15:31 Nucleated RBC % Not Reportable 10/08/20 15:31 Seg Neutrophils # Man 10.8 K/mm3 (1.8-7.7) H 10/08/20 15:31 Band Neutrophils # 0.4 K/mm3 10/08/20 15:31 Lymphocytes # (Manual) 1.5 K/mm3 (1.2-5.4) 10/08/20 15:31 Abs React Lymphs (Man) 0.0 K/mm3 10/08/20 15:31 Monocytes # (Manual) 0.7 K/mm3 (0.0-0.8) 10/08/20 15:31 Eosinophils # (Manual) 0.0 K/mm3 (0.0-0.4) 10/08/20 15:31 Basophils # (Manual) 0.0 K/mm3 (0.0-0.1) 10/08/20 15:31 Metamyelocytes # 0.0 K/mm3 10/08/20 15:31 Myelocytes # 0.0 K/mm3 10/08/20 15:31 Promyelocytes # 0.0 K/mm3 10/08/20 15:31 Blast Cells # 0.0 K/mm3 10/08/20 15:31 WBC Morphology Not Reportable 10/08/20 15:31 Hypersegmented Neuts Not Reportable 10/08/20 15:31 Hyposegmented Neuts Not Reportable 10/08/20 15:31 Hypogranular Neuts Not Reportable 10/08/20 15:31 Smudge Cells Not Reportable 10/08/20 15:31 Toxic Granulation Not Reportable 10/08/20 15:31 Toxic Vacuolation Not Reportable 10/08/20 15:31 Dohle Bodies Not Reportable 10/08/20 15:31 Pelger-Huet Anomaly Not Reportable 10/08/20 15:31 [place] Rods Not Reportable 10/08/20 15:31 Platelet Estimate Consistent w auto 10/08/20 15:31 Clumped Platelets Not Reportable 10/08/20 15:31 Plt Clumps, EDTA Not Reportable 10/08/20 15:31 Large Platelets Rare 10/08/20 15:31 Giant Platelets Not Reportable 10/08/20 15:31 Platelet Satelliting Not Reportable 10/08/20 15:31 Plt Morphology Comment Not Reportable 10/08/20 15:31 RBC Morphology Not Reportable 10/08/20 15:31 Dimorphic RBCs Not Reportable 10/08/20 15:31 Polychromasia Not Reportable 10/08/20 15:31 Hypochromasia Not Reportable 10/08/20 15:31 Poikilocytosis Not Reportable 10/08/20 15:31 Anisocytosis Not Reportable 10/08/20 15:31 Microcytosis Not Reportable 10/08/20 15:31 Macrocytosis Not Reportable 10/08/20 15:31 Spherocytes Not Reportable 10/08/20 15:31 Pappenheimer Bodies Not Reportable 10/08/20 15:31 Sickle Cells Not Reportable 10/08/20 15:31 Target Cells Not Reportable 10/08/20 15:31 Tear Drop Cells Not Reportable 10/08/20 15:31 Ovalocytes Not Reportable 10/08/20 15:31 Helmet Cells Not Reportable 10/08/20 15:31 [place] Bodies Not Reportable 10/08/20 15:31 Aspers Rings Not Reportable 10/08/20 15:31 [place] Cells Not Reportable 10/08/20 15:31 Bite Cells Not Reportable 10/08/20 15:31 Crenated Cell Not Reportable 10/08/20 15:31 Elliptocytes Not Reportable 10/08/20 15:31 Acanthocytes (Spur) Not Reportable 10/08/20 15:31 Rouleaux Not Reportable 10/08/20 15:31 Hemoglobin C Crystals Not Reportable 10/08/20 15:31 Schistocytes Not Reportable 10/08/20 15:31 Malaria parasites Not Reportable 10/08/20 15:31 [place] Bodies Not Reportable 10/08/20 15:31 Hem Pathologist Commnt No 10/08/20 15:31 D-Dimer 963.03 ng/mlDDU (0-234) H 10/02/20 23:55 Sodium 139 mmol/L (137-145) 10/05/20 04:29 Potassium 4.9 mmol/L (3.6-5.0) 10/05/20 04:29 Chloride 106.3 mmol/L (98-107) 10/05/20 04:29 Carbon Dioxide 23 mmol/L (22-30) 10/05/20 04:29 Anion Gap 15 mmol/L 10/05/20 04:29 BUN 14 mg/dL (9-20) 10/05/20 04:29 Creatinine 1.0 mg/dL (0.8-1.3) 10/05/20 04:29 Estimated GFR > 60 ml/min 10/05/20 04:29 BUN/Creatinine Ratio 14 % 10/05/20 04:29 Glucose 136 mg/dL (75-100) H 10/05/20 04:29 POC Glucose 120 mg/dL (70-105) H 10/11/20 07:29 Lactic Acid 1.40 mmol/L (0.7-2.0) 10/03/20 05:34 Calcium 8.7 mg/dL (8.4-10.2) 10/05/20 04:29 Magnesium 2.30 mg/dL (1.7-2.3) 10/05/20 04:29 Ferritin 349.5 ng/mL (30.0-300.0) H 10/02/20 23:55 Total Bilirubin 1.70 mg/dL (0.1-1.2) H 10/02/20 23:36 AST 67 units/L (5-40) H 10/02/20 23:36 ALT 36 units/L (7-56) 10/02/20 23:36 Alkaline Phosphatase 66 units/L (35-129) 10/02/20 23:36 Lactate Dehydrogenase 554 units/L (91-180) H 10/02/20 23:55 Total Creatine Kinase 392 units/L (55-170) H 10/10/20 12:45 CK-MB (CK-2) 8.1 ng/mL (0.0-4.0) H 10/10/20 12:45 CK-MB (CK-2) Rel Index 2.0 (0-4) 10/10/20 12:45 Troponin T < 0.010 ng/mL (0.00-0.029) 10/10/20 12:45 C-Reactive Protein 0.70 mg/dL (0.00-1.30) 10/07/20 14:42 NT-Pro-B Natriuret Pep 1122 pg/mL (0-450) H 10/05/20 13:31 Total Protein 7.3 g/dL (6.3-8.2) 10/02/20 23:36 Albumin 4.3 g/dL (3.9-5) 10/02/20 23:36 Albumin/Globulin Ratio 1.4 % 10/02/20 23:36 Procalcitonin 4.38 ng/mL (<0.15) 10/05/20 14:17 Urine Color Yellow (Yellow) 10/03/20 07:50 Urine Turbidity Clear (Clear) 10/03/20 07:50 Urine pH 5.0 (5.0-7.0) 10/03/20 07:50 Ur Specific [place] 1.034 (1.003-1.030) H 10/03/20 07:50 Urine Protein <15 mg/dl mg/dL (Negative) 10/03/20 07:50 Urine Glucose (UA) Neg mg/dL (Negative) 10/03/20 07:50 Urine Ketones Tr mg/dL (Negative) 10/03/20 07:50 Urine Blood Neg (Negative) 10/03/20 07:50 Urine Nitrite Neg (Negative) 10/03/20 07:50 Urine Bilirubin Neg (Negative) 10/03/20 07:50 Urine Urobilinogen < 2.0 mg/dL (<2.0) 10/03/20 07:50 Ur Leukocyte Esterase Neg (Negative) 10/03/20 07:50 Urine WBC (Auto) 0.0 /HPF (0.0-6.0) 10/03/20 07:50 Urine RBC (Auto) 1.0 /HPF (0.0-6.0) 10/03/20 07:50 Urine Mucus Few /HPF 10/03/20 07:50 Coronavirus (PCR) Negative (Negative) 10/06/20 Unknown HIV-1 RNA PCR copies/ml <20 Copies/mL 10/05/20 17:41 HIV-1 RNA (PCR) log <1.30 Log cps/mL 10/05/20 17:41 HIV 1&2 Antibody Rapid Non react (Non React) 10/05/20 13:31 HIV P24 Antigen Non react (Non React) 10/05/20 13:31 Urine Legionella Ag Not detected (Not Detected) 10/04/20 12:01 AFB Identification 10/08/20 08:30 Ruiz/IV: Voiding Method Toilet Active Medications - Current Medications Current Medications: Generic Name Dose Route Start Last Admin Trade Name Freq PRN Reason Stop Dose Admin Acetaminophen 650 mg 10/03/20 02:15 10/10/20 22:07 Acetaminophen 325 Mg Tab PO 650 mg Q4H PRN Administration Fever >101 Al Hydrox/Mg Hydrox/Simethicone 15 ml 10/03/20 01:56 Alum-Mag Hydroxide-Simethicone [id number]/5ml Oral Liqd 30 Ml PO Q4H PRN Indigestion Albuterol 2.5 mg 10/03/20 01:45 10/04/20 13:40 Albuterol 2.5 Mg/3 Ml Nebu IH 2.5 mg Q4HRT PRN Administration Shortness Of Breath Arformoterol Tartrate 15 mcg 10/03/20 11:00 10/11/20 07:46 Arformoterol 15 Mcg/2 Ml Nebu IH 15 mcg Q12HRT DEBORAH Administration Budesonide 0.5 mg 10/06/20 09:30 10/11/20 07:46 Budesonide 0.5 Mg/2 Ml Nebu IH 0.5 mg Q12HRT DEBORAH Administration Enoxaparin Sodium 40 mg 10/03/20 10:00 10/11/20 09:17 Enoxaparin 40 Mg/0.4 Ml Inj SUB-Q 40 mg DAILY DEBORAH Administration Protocol Guaifenesin 200 mg 10/06/20 04:44 10/11/20 09:17 Guaifenesin 100 Mg/5 Ml Oral Liqd PO 200 mg Q4H PRN Administration Cough Hydralazine HCl 5 mg 10/03/20 01:47 10/11/20 10:54 Hydralazine 20 Mg/1 Ml Inj IV 5 mg Q4H PRN Administration Hypertension Hydralazine HCl 50 mg 10/10/20 18:56 10/11/20 06:51 Hydralazine 25 Mg Tab PO 50 mg Q8HR DEBORAH Administration Sodium Chloride 1,000 mls @ 75 mls/hr 10/03/20 03:45 10/08/20 19:39 Nacl 0.9% 1000 Ml IV 75 mls/hr DIRECT DEBORAH Administration Lisinopril 40 mg 10/03/20 22:00 10/11/20 09:17 Lisinopril 40 Mg Tab PO 40 mg BID DEBORAH Administration Methylprednisolone Sodium Succinate 40 mg 10/06/20 14:00 10/11/20 06:51 Methylprednisolone Sod Succinate 40 Mg/1 Ml Inj IV 40 mg Q8HR DEBORAH Administration Nicotine 14 mg 10/04/20 10:00 10/11/20 09:18 Nicotine 14 Mg/24 Hr Patch TD Not Given QDAY DEBORAH Ondansetron HCl 4 mg 10/03/20 01:56 Ondansetron 4 Mg/2 Ml Inj IV Q4H PRN Nausea And Vomiting Senna 8.6 mg 10/03/20 01:56 Sennosides 8.6 Mg Tab PO Q12H PRN Laxative Effect Tramadol HCl 50 mg 10/03/20 01:43 10/11/20 09:18 Tramadol 50 Mg Tab PO 50 mg Q4H PRN Administration Pain, Moderate (4-6) Trazodone HCl 50 mg 10/03/20 01:43 10/10/20 22:00 Trazodone 50 Mg Tab PO 50 mg QHS PRN Administration Insomnia Nutrition/Malnutrition Assess - Dietary Evaluation Nutrition/Malnutrition Findings: Nutrition Notes Start: 10/09/20 12:36 Freq: Status: Active Protocol: Document 10/09/20 12:36 LP (Rec: 10/09/20 12:37 LP [id number]) Nutrition Notes Need for Assessment generated from: supervisor instrument repair Initial or Follow up Brief Note Subjective/Other Information Screen for LOS. Pt did not answer phone. Nutrition Intervention Follow-Up By: 10/12/20 Additional Comments Follow for LOS assessment needs
[2020-10-11] MEDS: NIFEdipine XL 30 MG TAB PO SCH (21:27)
[2020-10-12] MEDS: hydrALAZINE 25 MG TAB PO SCH ×2 (05:23→13:40)
[2020-10-12] MEDS: methylPREDNISolone Sod Succinate 40 MG/1 ML INJ IV SCH (05:23)
[2020-10-12 06:32] LABS: Basophils % (Auto) 0.1 % (0.0-1.8); Hematocrit 41.7 % (35.5-45.6); Hemoglobin 13.9 gm/dl (11.8-15.2); Lymphocytes # (Auto) 2.3 K/mm3 (1.2-5.4); Lymphocytes % (Auto) 13.2 % (13.4-35.0); Mean Corpuscular HGB Conc 33 % (32-34); Mean Corpuscular Volume 92 fl (84-94); Monocytes # (Auto) 0.9 K/mm3 (0.0-0.8); Monocytes % (Auto) 4.8 % (0.0-7.3); Platelet Count 262 K/mm3 (140-440); Red Blood Count 4.55 M/mm3 (3.65-5.03)
[2020-10-12 06:53] LABS: BUN/Creatinine Ratio 13; Blood Urea Nitrogen 13 mg/dL (9-20); Calcium 8.5 mg/dL (8.4-10.2); Hemolysis Index 4
[2020-10-12] MEDS: BUDESONIDE 0.5 MG/2 ML NEBU IH SCH (08:10)
[2020-10-12] MEDS: ARFORMOTEROL 15 MCG/2 ML NEBU IH SCH (08:10)
--- NOTE | 2020-10-12 08:15 | Progress Note ---
Assessment and Plan Assessment and plan: COVID-19 test negative x 2 [10/03/2020 and 10/06/2020] TB testing is in progress; sputum smear for AFB negative x 2 --Acute hypoxic respiratory failure; Patient was requiring 3.5 L yesterday, today on 2lt NC o2 Wean as tolerated, titrate O2 sats more than 90%, nebulizers, IV steroids, IV antibiotics, inhalation steroids Pulmonary following --AFB smears, x2 negative , follow rest of the work-up AFP cultures, gold interferon test requested per ID Continue airborne isolation --Severe sepsis, POA; Secondary to bilateral pneumonia, high procalcitonin levels Completed antibiotics, cultures negative to date --Bilateral pneumonia: Procalcitonin levels high Completed antibiotics, pulmonary and ID following --Acute bronchial asthma: exacerbation Oxygen, nebulizers, IV steroids, supportive care --Elevated D-dimer; CTA negative for PE --Hypertension; uncontrolled Add hydralazine 25 mg 3 times a day , IV hydralazine as needed Closely monitor blood pressures and adjust the medications as indicated --Ongoing tobacco : Smoking cessation counseling, advised nicotine patch --DVT prophylaxis; Lovenox --Obesity; BMI 37.1 Strongly advised weight reduction, dietary modification, exercise as tolerated Lifestyle changes when medically stable Closely monitor the patient and adjust management as needed Plan of care reviewed with the patient and his nurse Supervisor Grower recommendations noted and appreciated. Disposition; follow TB testing, follow pulmonary and ID recommendations and discharge when stable Brief history; 39-year-old obese male patient with acute hypoxic respiratory failure secondary to bilateral airspace disease was admitted through emergency room with worsening shortness of breath, possible pneumonia versus atypical pneumonia/PUI , gibson PCR test x2 negative COVID-19 test x 2 negative , 10/03/2020 and 10/06/2020. Pulmonary planning bronchoscopy 10/03/2020. Continue IV antibiotics for now and follow-up procalcitonin. Add steroids for asthma exacerbation. Continue bronchodilators. Continue BiPAP 12/ and FiO2 100%. Pulmonary and ID consultations pending. 10/04/2020. Patient still with significant respiratory failure with etiology secondary to likely community-acquired pneumonia and acute asthma exacerbation. Covid testing negative. Start IV steroids and monitor closely. Continue IV antibiotics and follow-up chest x-ray in a.m. Patient counseled on tobacco cessation. Patient still requiring high flow nasal cannula 15 L/min. Continue to wean oxygen as tolerated. Patient will remain in IMCU due to high risk of decompensation given respiratory status. 10/05/2020. Patient still with significant respiratory failure with etiology secondary to likely community-acquired pneumonia and acute asthma exacerbation. Covid testing negative. Continue Solu-Medrol 40 mg IV every 8 hours. Patient still requiring high flow nasal cannula 15 L/min. Continue to wean oxygen as tolerated. Patient will remain in IMCU due to high risk of decompensation given respiratory status. Continue IV antibiotics and follow-up chest x-ray. 10/06/2020; pending repeat Covid test today, possible bronchoscopy when patient makes a decision Patient is still requiring high flow oxygen, wean as tolerated COVID-19 test x2 negative, pulmonary planning bronchoscopy 10/07/2020; AFP smear, gold interferon test, AFB cultures requested To rule out pulmonary tuberculosis, consider isolation COVID-19 test x2 negative, plans of bronchoscopy is on hold 10/08/2020; bronchoscopy pending TB testing, Patient continues to require 10 L nasal cannula oxygen 10/09/2020; TB testing is in progress, patient in isolation Continue current management, bronchoscopy is on hold 10/10/2020; 2 sets of sputum for AFB negative, pending AFB cultures and third test of sputum for AFB 10/11/20; continue to follow AFB cultures, pending AFB smears and rest of the TB work-up Patient is anxious to go home, pulmonary and ID following 10/12/20: TB work-up is in progress, follow ID and pulmonary recommendations Patient saturating well on room air. Hospitalist Physical - Constitutional Vitals: Temp Pulse Resp BP Pulse Ox 98.0 F 84 20 150/97 95 10/12/20 04:21 10/12/20 04:21 10/12/20 04:21 10/12/20 04:21 10/12/20 08:10 General appearance: Present: no acute distress, well-nourished, obese (Morbidly obese) HEART Score - HEART Score Troponin: Troponin T < 0.010 ng/mL (0.00-0.029) 10/10/20 12:45 Results - Labs CBC & Chem 7: 10/12/20 06:06 10/12/20 06:06 Labs: Laboratory Last Values WBC 17.7 K/mm3 (4.5-11.0) H 10/12/20 06:06 RBC 4.55 M/mm3 (3.65-5.03) 10/12/20 06:06 Hgb 13.9 gm/dl (11.8-15.2) 10/12/20 06:06 Hct 41.7 % (35.5-45.6) 10/12/20 06:06 MCV 92 fl (84-94) 10/12/20 06:06 MCH 31 pg (28-32) 10/12/20 06:06 MCHC 33 % (32-34) 10/12/20 06:06 RDW 15.0 % (13.2-15.2) 10/12/20 06:06 Plt Count 262 K/mm3 (140-440) 10/12/20 06:06 Lymph % (Auto) 13.2 % (13.4-35.0) L 10/12/20 06:06 [place] % (Auto) 4.8 % (0.0-7.3) 10/12/20 06:06 Eos % (Auto) 0.0 % (0.0-4.3) 10/12/20 06:06 Baso % (Auto) 0.1 % (0.0-1.8) 10/12/20 06:06 Lymph # (Auto) 2.3 K/mm3 (1.2-5.4) 10/12/20 06:06 [place] # (Auto) 0.9 K/mm3 (0.0-0.8) H 10/12/20 06:06 Eos # (Auto) 0.0 K/mm3 (0.0-0.4) 10/12/20 06:06 Baso # (Auto) 0.0 K/mm3 (0.0-0.1) 10/12/20 06:06 Add Manual Diff Complete 10/08/20 15:31 Total Counted 100 10/08/20 15:31 Seg Neutrophils % 81.9 % (40.0-70.0) H 10/12/20 06:06 Seg Neuts % (Manual) 81.0 % (40.0-70.0) H 10/08/20 15:31 Band Neutrophils % 3.0 % 10/08/20 15:31 Lymphocytes % (Manual) 11.0 % (13.4-35.0) L 10/08/20 15:31 Monocytes % (Manual) 5.0 % (0.0-7.3) 10/08/20 15:31 Nucleated RBC % Not Reportable 10/08/20 15:31 Seg Neutrophils # 14.5 K/mm3 (1.8-7.7) H 10/12/20 06:06 Seg Neutrophils # Man 10.8 K/mm3 (1.8-7.7) H 10/08/20 15:31 Band Neutrophils # 0.4 K/mm3 10/08/20 15:31 Lymphocytes # (Manual) 1.5 K/mm3 (1.2-5.4) 10/08/20 15:31 Abs React Lymphs (Man) 0.0 K/mm3 10/08/20 15:31 Monocytes # (Manual) 0.7 K/mm3 (0.0-0.8) 10/08/20 15:31 Eosinophils # (Manual) 0.0 K/mm3 (0.0-0.4) 10/08/20 15:31 Basophils # (Manual) 0.0 K/mm3 (0.0-0.1) 10/08/20 15:31 Metamyelocytes # 0.0 K/mm3 10/08/20 15:31 Myelocytes # 0.0 K/mm3 10/08/20 15:31 Promyelocytes # 0.0 K/mm3 10/08/20 15:31 Blast Cells # 0.0 K/mm3 10/08/20 15:31 WBC Morphology Not Reportable 10/08/20 15:31 Hypersegmented Neuts Not Reportable 10/08/20 15:31 Hyposegmented Neuts Not Reportable 10/08/20 15:31 Hypogranular Neuts Not Reportable 10/08/20 15:31 Smudge Cells Not Reportable 10/08/20 15:31 Toxic Granulation Not Reportable 10/08/20 15:31 Toxic Vacuolation Not Reportable 10/08/20 15:31 Dohle Bodies Not Reportable 10/08/20 15:31 Pelger-Huet Anomaly Not Reportable 10/08/20 15:31 Clayton Rods Not Reportable 10/08/20 15:31 Platelet Estimate Consistent w auto 10/08/20 15:31 Clumped Platelets Not Reportable 10/08/20 15:31 Plt Clumps, EDTA Not Reportable 10/08/20 15:31 Large Platelets Rare 10/08/20 15:31 Giant Platelets Not Reportable 10/08/20 15:31 Platelet Satelliting Not Reportable 10/08/20 15:31 Plt Morphology Comment Not Reportable 10/08/20 15:31 RBC Morphology Not Reportable 10/08/20 15:31 Dimorphic RBCs Not Reportable 10/08/20 15:31 Polychromasia Not Reportable 10/08/20 15:31 Hypochromasia Not Reportable 10/08/20 15:31 Poikilocytosis Not Reportable 10/08/20 15:31 Anisocytosis Not Reportable 10/08/20 15:31 Microcytosis Not Reportable 10/08/20 15:31 Macrocytosis Not Reportable 10/08/20 15:31 Spherocytes Not Reportable 10/08/20 15:31 Pappenheimer Bodies Not Reportable 10/08/20 15:31 Sickle Cells Not Reportable 10/08/20 15:31 Target Cells Not Reportable 10/08/20 15:31 Tear Drop Cells Not Reportable 10/08/20 15:31 Ovalocytes Not Reportable 10/08/20 15:31 Helmet Cells Not Reportable 10/08/20 15:31 Gan-Boyle Bodies Not Reportable 10/08/20 15:31 [place] Rings Not Reportable 10/08/20 15:31 Ramsey Cells Not Reportable 10/08/20 15:31 Bite Cells Not Reportable 10/08/20 15:31 Crenated Cell Not Reportable 10/08/20 15:31 Elliptocytes Not Reportable 10/08/20 15:31 Acanthocytes (Spur) Not Reportable 10/08/20 15:31 Rouleaux Not Reportable 10/08/20 15:31 Hemoglobin C Crystals Not Reportable 10/08/20 15:31 Schistocytes Not Reportable 10/08/20 15:31 Malaria parasites Not Reportable 10/08/20 15:31 Francisco Bodies Not Reportable 10/08/20 15:31 Hem Pathologist Commnt No 10/08/20 15:31 D-Dimer 963.03 ng/mlDDU (0-234) H 10/02/20 23:55 Sodium 140 mmol/L (137-145) 10/12/20 06:06 Potassium 3.9 mmol/L (3.6-5.0) 10/12/20 06:06 Chloride 102.7 mmol/L (98-107) 10/12/20 06:06 Carbon Dioxide 28 mmol/L (22-30) 10/12/20 06:06 Anion Gap 13 mmol/L 10/12/20 06:06 BUN 13 mg/dL (9-20) 10/12/20 06:06 Creatinine 1.0 mg/dL (0.8-1.3) 10/12/20 06:06 Estimated GFR > 60 ml/min 10/12/20 06:06 BUN/Creatinine Ratio 13 % 10/12/20 06:06 Glucose 138 mg/dL (75-100) H 10/12/20 06:06 POC Glucose 135 mg/dL (70-105) H 10/11/20 21:15 Lactic Acid 1.40 mmol/L (0.7-2.0) 10/03/20 05:34 Calcium 8.5 mg/dL (8.4-10.2) 10/12/20 06:06 Magnesium 2.30 mg/dL (1.7-2.3) 10/05/20 04:29 Ferritin 349.5 ng/mL (30.0-300.0) H 10/02/20 23:55 Total Bilirubin 1.70 mg/dL (0.1-1.2) H 10/02/20 23:36 AST 67 units/L (5-40) H 10/02/20 23:36 ALT 36 units/L (7-56) 10/02/20 23:36 Alkaline Phosphatase 66 units/L (35-129) 10/02/20 23:36 Lactate Dehydrogenase 554 units/L (91-180) H 10/02/20 23:55 Total Creatine Kinase 392 units/L (55-170) H 10/10/20 12:45 CK-MB (CK-2) 8.1 ng/mL (0.0-4.0) H 10/10/20 12:45 CK-MB (CK-2) Rel Index 2.0 (0-4) 10/10/20 12:45 Troponin T < 0.010 ng/mL (0.00-0.029) 10/10/20 12:45 C-Reactive Protein 0.70 mg/dL (0.00-1.30) 10/07/20 14:42 NT-Pro-B Natriuret Pep 1122 pg/mL (0-450) H 10/05/20 13:31 Total Protein 7.3 g/dL (6.3-8.2) 10/02/20 23:36 Albumin 4.3 g/dL (3.9-5) 10/02/20 23:36 Albumin/Globulin Ratio 1.4 % 10/02/20 23:36 Procalcitonin 4.38 ng/mL (<0.15) 10/05/20 14:17 Urine Color Yellow (Yellow) 10/03/20 07:50 Urine Turbidity Clear (Clear) 10/03/20 07:50 Urine pH 5.0 (5.0-7.0) 10/03/20 07:50 Ur Specific [place] 1.034 (1.003-1.030) H 10/03/20 07:50 Urine Protein <15 mg/dl mg/dL (Negative) 10/03/20 07:50 Urine Glucose (UA) Neg mg/dL (Negative) 10/03/20 07:50 Urine Ketones Tr mg/dL (Negative) 10/03/20 07:50 Urine Blood Neg (Negative) 10/03/20 07:50 Urine Nitrite Neg (Negative) 10/03/20 07:50 Urine Bilirubin Neg (Negative) 10/03/20 07:50 Urine Urobilinogen < 2.0 mg/dL (<2.0) 10/03/20 07:50 Ur Leukocyte Esterase Neg (Negative) 10/03/20 07:50 Urine WBC (Auto) 0.0 /HPF (0.0-6.0) 10/03/20 07:50 Urine RBC (Auto) 1.0 /HPF (0.0-6.0) 10/03/20 07:50 Urine Mucus Few /HPF 10/03/20 07:50 Coronavirus (PCR) Negative (Negative) 10/06/20 Unknown HIV-1 RNA PCR copies/ml <20 Copies/mL 10/05/20 17:41 HIV-1 RNA (PCR) log <1.30 Log cps/mL 10/05/20 17:41 HIV 1&2 Antibody Rapid Non react (Non React) 10/05/20 13:31 HIV P24 Antigen Non react (Non React) 10/05/20 13:31 Urine Legionella Ag Not detected (Not Detected) 10/04/20 12:01 AFB Identification 10/08/20 08:30 Ruiz/IV: Voiding Method Toilet Active Medications - Current Medications Current Medications: Generic Name Dose Route Start Last Admin Trade Name Freq PRN Reason Stop Dose Admin Acetaminophen 650 mg 10/03/20 02:15 10/10/20 22:07 Acetaminophen 325 Mg Tab PO 650 mg Q4H PRN Administration Fever >101 Al Hydrox/Mg Hydrox/Simethicone 15 ml 10/03/20 01:56 Alum-Mag Hydroxide-Simethicone [id number]/5ml Oral Liqd 30 Ml PO Q4H PRN Indigestion Albuterol 2.5 mg 10/03/20 01:45 10/04/20 13:40 Albuterol 2.5 Mg/3 Ml Nebu IH 2.5 mg Q4HRT PRN Administration Shortness Of Breath Arformoterol Tartrate 15 mcg 10/03/20 11:00 10/12/20 08:10 Arformoterol 15 Mcg/2 Ml Nebu IH 15 mcg Q12HRT DEBORAH Administration Budesonide 0.5 mg 10/06/20 09:30 10/12/20 08:10 Budesonide 0.5 Mg/2 Ml Nebu IH 0.5 mg Q12HRT DEBORAH Administration Enoxaparin Sodium 40 mg 10/03/20 10:00 10/11/20 09:17 Enoxaparin 40 Mg/0.4 Ml Inj SUB-Q 40 mg DAILY DEBORAH Administration Protocol Guaifenesin 200 mg 10/06/20 04:44 10/11/20 09:17 Guaifenesin 100 Mg/5 Ml Oral Liqd PO 200 mg Q4H PRN Administration Cough Hydralazine HCl 5 mg 10/03/20 01:47 10/11/20 10:54 Hydralazine 20 Mg/1 Ml Inj IV 5 mg Q4H PRN Administration Hypertension Hydralazine HCl 50 mg 10/10/20 18:56 10/12/20 05:23 Hydralazine 25 Mg Tab PO 50 mg Q8HR DEBORAH Administration Sodium Chloride 1,000 mls @ 75 mls/hr 10/03/20 03:45 10/08/20 19:39 Nacl 0.9% 1000 Ml IV 75 mls/hr DIRECT DEBORAH Administration Lisinopril 40 mg 10/03/20 22:00 10/11/20 21:27 Lisinopril 40 Mg Tab PO 40 mg BID DEBORAH Administration Methylprednisolone Sodium Succinate 40 mg 10/06/20 14:00 10/12/20 05:23 Methylprednisolone Sod Succinate 40 Mg/1 Ml Inj IV 40 mg Q8HR DEBORAH Administration Nicotine 14 mg 10/04/20 10:00 10/11/20 09:18 Nicotine 14 Mg/24 Hr Patch TD Not Given QDAY DEBORAH Nifedipine 30 mg 10/11/20 22:00 10/11/20 21:27 Nifedipine Xl 30 Mg Tab PO 30 mg Q12HR DEBORAH Administration Ondansetron HCl 4 mg 10/03/20 01:56 Ondansetron 4 Mg/2 Ml Inj IV Q4H PRN Nausea And Vomiting Senna 8.6 mg 10/03/20 01:56 Sennosides 8.6 Mg Tab PO Q12H PRN Laxative Effect Tramadol HCl 50 mg 10/03/20 01:43 10/11/20 21:31 Tramadol 50 Mg Tab PO 50 mg Q4H PRN Administration Pain, Moderate (4-6) Trazodone HCl 50 mg 10/03/20 01:43 10/10/20 22:00 Trazodone 50 Mg Tab PO 50 mg QHS PRN Administration Insomnia Nutrition/Malnutrition Assess - Dietary Evaluation Nutrition/Malnutrition Findings: Nutrition Notes Start: 10/09/20 12:36 Freq: Status: Active Protocol: Document 10/09/20 12:36 LP (Rec: 10/09/20 12:37 LP [id number]) Nutrition Notes Need for 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 Pt did not answer phone. Nutrition Intervention Follow-Up By: 10/12/20 Additional Comments Follow for LOS assessment needs
[2020-10-12] MEDS: traMADol 50 MG TAB PO PRN ×2 (09:25→15:26)
[2020-10-12] MEDS: ENOXAPARIN 40 MG/0.4 ML INJ SUB-Q SCH (09:25)
[2020-10-12] MEDS: NIFEdipine XL 30 MG TAB PO SCH (09:26)
[2020-10-12] MEDS: LISINOPRIL 40 MG TAB PO SCH (09:26)
[2020-10-12] MEDS: NICOTINE 14 MG/24 HR PATCH TD SCH (09:26)
--- NOTE | 2020-10-12 13:08 | Progress Note ---
Assessment and Plan Cultures: Blood culture 10/03/2020 no growth today AFB x2 neg TB QuantiFERON gold is also negative Assessment: 39 years old male with history of tobacco abuse, asthma, hypertension, obesity admitted on 10/02/2020 secondary to a week history of cough, shortness of breath, nasal congestion, wheezing associated with body aches and fever/chills: #Severe sepsis: secondary to bilateral pneumonia #Bilateral pneumonia: Of unclear etiology. Recently released after 2 years in shelter now homeless. SARS-CoV-2 PCR negative x 2. HIV rapid test neg. Noted elevated D-dimer at night 63, mild elevated ferritin, CRP. CTA shows extensive bilateral pneumonia no PE. Legs ultrasound no DVT. #Acute hypoxemic respiratory failure: Resolved #Tobacco abuse #Asthma exacerbation #Transaminitis: Mild. Recommendations: -Completed antibiotics -Clinically doing well. AFB x2 -, TB QuantiFERON gold is also negative. Okay for discharge from ID standpoint -Leukocytosis is likely secondary to steroids Will sign off. Discussed with Dr. Condon. Asher Bernstein MD, FACP [facility] O: [phone] F: [phone] Subjective Date of service: 10/12/20 Principal diagnosis: Bilateral pneumonia Interval history: No fever. Reports mild cough. Objective - Exam Narrative Exam: Physical Exam: Constitutional: Alert, cooperative. No acute distress Head, Ears, Nose: Normocephalic, atraumatic. External ears, nose normal Eyes: Conjunctivae/corneas clear. No icterus. No ptosis. Neck: Supple, no meningeal signs Cardiovascular: S1, S2 normal. Respiratory: Few scattered wheezes GI: Soft, non-tender; bowel sounds normal. No peritoneal signs Musculoskeletal: No pedal edema, no cyanosis. Skin: No rash or abscess Hem/Lymphatic: No palpable cervical or supraclavicular nodes. No lymphangitis Psych: Mood ok. Affect normal Neurological: Awake, alert, oriented. No gross abnormality - Constitutional Vitals: Vital Signs Temp Pulse Resp BP Pulse Ox 98.0 F 82 21 168/104 96 10/12/20 04:21 10/12/20 10:00 10/12/20 10:00 10/12/20 09:26 10/12/20 10:00 Temperature -Last 24 Hours Temperature 98.0 F Temperature 98.0 F Temperature 98.0 F Temperature 98.3 F - Labs CBC & Chem 7: 10/12/20 06:06 10/12/20 06:06 Labs: Abnormal lab results 10/11/20 10/11/20 10/12/20 Range/Units 15:36 21:15 06:06 WBC 17.7 H (4.5-11.0) K/mm3 Lymph % (Auto) 13.2 L (13.4-35.0) % Haakon # (Auto) 0.9 H (0.0-0.8) K/mm3 Seg Neutrophils % 81.9 H (40.0-70.0) % Seg Neutrophils # 14.5 H (1.8-7.7) K/mm3 Glucose (75-100) mg/dL POC Glucose 148 H 135 H (70-105) mg/dL 10/12/20 Range/Units 06:06 WBC (4.5-11.0) K/mm3 Lymph % (Auto) (13.4-35.0) % [place] # (Auto) (0.0-0.8) K/mm3 Seg Neutrophils % (40.0-70.0) % Seg Neutrophils # (1.8-7.7) K/mm3 Glucose 138 H (75-100) mg/dL POC Glucose (70-105) mg/dL
[2020-10-12] MEDS: guaiFENesin 100 MG/5 ML ORAL LIQD PO PRN (15:27)
--- NOTE | 2020-10-12 17:08 | Discharge Summary ---
Providers - Providers Date of Admission: 10/03/20 00:51 Date of discharge: 10/12/20 Attending physician: BRIAN LOUISE 10/03/20 01:53 Consult to Physician [CONS] Routine Comment: Consulting Provider: KULDEEP JACKSON Physician Instructions: Reason For Exam: shortness of breath 10/03/20 01:54 Consult to Physician [CONS] Routine Comment: Consulting Provider: [facility] Physician Instructions: Reason For Exam: leucocytosis/PUI 10/03/20 11:42 Consult to Physician [CONS] Routine Comment: called answ. serv. / chemo Consulting Provider: GIOVANI BOB Physician Instructions: Reason For Exam: pna Primary care physician: [facility], Hospitalization Reason for admission: Worsening shortness of breath, acute hypoxic respiratory failure Condition: Stable Pertinent studies: Blood culture 10/03/2020 no growth today AFB smear x2 neg TB QuantiFERON gold is also negative HIV test negative Gibson PCR x2 - Chest x-ray; bilateral pneumonia CTA chest; no PE severe bilateral pneumonia bilateral hypodense adrenal nodules diagnostic for none Lower extremity venous Doppler; no DVT in either extremity Chest x-ray 10/05/2020 mild improvement of bilateral airspace disease Hospital course: 39-year-old obese male patient with acute hypoxic respiratory failure secondary to bilateral airspace disease , bilateral pneumonia was admitted through emergency room with worsening shortness of breath, possible pneumonia versus atypical pneumonia/PUI , gibson PCR test x2 negative. Initially patient was placed on isolation, gibson PCR test x2, pulmonary and ID evaluated the patient. Since patient has unexplained bilateral pneumonia, [facility], currently homeless ID and pulmonary recommended to rule out pulmonary tuberculosis, Patient had TB QuantiFERON gold test which was negative, sputum for AFB smears x2 -, chest x-ray negative for any evidence of tuberculosis Patient also underwent HIV testing which was negative. Patient's hypoxic respiratory failure that was present on admission was completely resolved, patient is ambulatory tolerating oral nutrition. Today patient is comfortable no new complaints vital signs stable physical examination is unremarkable Patient is hemodynamically and clinically stable at discharge Advised to follow primary care physician, [facility] primary pulmonary and ID per schedule Patient is hemodynamically and clinically stable at discharge Advised to quit tobacco use recommend nicotine patch as needed Patient was advised weight reduction, dietary modification, exercise as tolerated when medically stable. Discharge diagnosis: --Bilateral pneumonia; completed antibiotics, improved --PUI/COVID-19 test x2 - --pulmonary tuberculosis ruled out[AFB smears negative, TB QuantiFERON gold negative] --HIV test negative --History of bronchial asthma; inhalers, steroids supportive care, room air O2 sats more than 95% --Severe sepsis due to bilateral pneumonia, completed treatment --Ongoing tobacco use; smoking cessation counseling done --Mild transaminitis; trending down --Elevated D-dimers; negative PE, negative DVT --Obesity; BMI 35.0, advised weight reduction --Hypertension --DC planning per case management All the consultants cleared for discharge Advised to follow-up with [facility] Prosthetic Dentist FIOR and ID Stable at discharge - Disposition: DC-[id number] TO HOME OR SELFCARE Final Discharge Diagnosis (Prints w/discharge instructions): --Bilateral pneumonia; completed antibiotics. --PUI/COVID-19 test x2 -. --pulmonary tuberculosis ruled ouT. --HIV test negative. --History of bronchial asthma;. --Severe sepsis due to bilateral pneumonia, completed treatment. --Ongoing tobacco use; smoking cessation counseling done. --Mild transaminitis;. --Elevated D-dimers; negative PE, negative DVT. --Obesity; BMI 35.0,. --Hypertension Time spent for discharge: 35 min Core Measure Documentation - Palliative Care Palliative Care/ Comfort Measures: Not Applicable - Core Measures Any of the following diagnoses?: none Exam - Constitutional Vitals: Temp Pulse Resp BP Pulse Ox 97.7 F 78 18 148/69 94 10/12/20 11:32 10/12/20 13:40 10/12/20 11:32 10/12/20 13:40 10/12/20 11:32 General appearance: Present: no acute distress, well-nourished, obese - EENT Eyes: Present: PERRL, EOM intact - Neck Neck: Present: supple, normal ROM - Respiratory Respiratory effort: normal Respiratory: bilateral: diminished, negative: rales, rhonchi, wheezing Plan Activity: advance as tolerated Diet: low salt Additional Instructions: If you have worsening symptoms contact MD or go to emergency room. Exercise as tolerated and weight reduction when you are medically stable. Advised to follow [facility] for further evaluation and management. Follow primary care physician at [facility]/clinic. Follow pulmonology/lung physician at [facility]/clinic Follow up with: KAYLAN SUAREZ MD [Primary Care Provider] - 7 Days Prescriptions: Fluticasone/Salmeterol [Advair Diskus 250-50 mcg] 1 puff IH BID #1 disk.w.dev Fluticasone/Salmeterol [Advair Diskus 500-50 mcg] 1 puff IH BID 30 Days #1 disk.w.dev Nicotine [Habitrol] 14 mg TD QDAY #30 patch Hydralazine HCl 50 mg PO TID #90 tablet predniSONE 6 tab PO DAILY #40 tablet Albuterol Mdi (or & Nicu Only) [ProAir HFA Inhaler] 2 puff IH QID PRN #8.5 gram PRN Reason: Shortness Of Breath NIFEdipine XL [Procardia Xl] 30 mg PO Q12HR #60 tablet guaiFENesin [Robitussin] 200 mg PO Q4H PRN 10 Days #1 bottle PRN Reason: Cough lisinopriL [Zestril TAB] 40 mg PO BID #60 tablet
[2020-10-12 17:20] VITALS: BP 156/97
[2020-10-12] MEDS ORDERED: methylPREDNISolone Sod Succinate 40 MG/1 ML INJ IV SCH (18:00)
[2020-10-13 12:11] LABS: ANA Screen, IFA Negative (Negative)
[2020-10-13 21:02] LABS: Myeloperoxidase Antibody <1.0 AI (<1.0)
--- NOTE | 2020-10-16 10:06 | Electrocardiograph Report ---
[facility] Test Date: 2020-10-10 Test Time: 09:52:15 Pat Name: SAPPHIRE VELAZQUEZ Department: Room: A461 1 Gender: M [employer] Physician: ONEL : 1980 Requested By: BRIAN LOUISE Order Number: [id number] Reading MD: Homer Gan Measurements Intervals [place] Rate: 71 P: 52 PA: 137 QRS: -13 QRSD: 88 T: 124 QT: 415 QTc: 452 Interpretive Statements Incomplete analysis due to missing data in precordial lead(s) Sinus rhythm Ventricular premature complex Abnormal T, consider ischemia, lateral leads Missing lead(s): V5 Compared to ECG 10/02/2020 23:02:08 T-wave abnormality now present Possible ischemia now present Sinus tachycardia no longer present Atrial abnormality no longer present Electronically Signed On 10-16-2020 10:05:48 EDT by Homer Gan
== END 2020-10-12 18:48 | disposition home or self-care (01) | DRG 871 ==
LOC: ED 22:53 → IMCU 10-03 00:51 → 4A 10-09 21:07
PROVIDERS: ADMIT Internal Medicine Geriatric Medicine; ATTEND Internal Medicine
PROC: 5A09357 Assistance with Respiratory Ventilation, Less than 24 Consecutive Hours, Continuous Positive Airway Pressure (ICD-10-PCS; 2020-10-03)
PROC: 3E0234Z Introduction of Serum, Toxoid and Vaccine into Muscle, Percutaneous Approach (ICD-10-PCS; principal; 2020-10-10)
DX: A41.9 Sepsis, unspecified organism (principal); J18.9 Pneumonia, unspecified organism; J96.01 Acute respiratory failure with hypoxia; J45.901 Unspecified asthma with (acute) exacerbation; Z20.822 Contact with and (suspected) exposure to COVID-19; J20.9 Acute bronchitis, unspecified; I10 Essential (primary) hypertension; Z68.37 Body mass index [BMI] 37.0-37.9, adult; F17.200 Nicotine dependence, unspecified, uncomplicated; R65.20 Severe sepsis without septic shock; E66.01 Morbid (severe) obesity due to excess calories; R74.01 Elevation of levels of liver transaminase levels; R07.9 Chest pain, unspecified; Z71.6 Tobacco abuse counseling; Z23 Encounter for immunization; Z71.3 Dietary counseling and surveillance; Z79.899 Other long term (current) drug therapy
CPT/HCPCS: 36415; 71045; 71275; 80048; 80053; 81001; 82140; 82164; 82550; 82553; 82728; 82947; 82962; 83520; 83615; 83735; 83880; 84145; 84484; 85007; 85025; 85379; 86021; 86038; 86140; 86160; 87040; 87449; 87536; 87806; 88112; 88312; 90732; 93005; 93970; 94640; 94644; 94660; 94760; 96366; 96367; 96374; 96375; 96376; 99406; G0378; J0360; J0456; J0696; J1100; J1650; J2920; J2930; J7030; J7050; Q9967; U0003

== ENCOUNTER 2021-02-07 12:59 | Emergency (ER) | payer OTHER ==
[2021-02-07] MEDS ORDERED: FAMOTIDINE 20 MG/2 ML INJ IV ONE (15:34)
[2021-02-07] MEDS ORDERED: KETOROLAC 30 MG/1 ML INJ IV ONE (15:34)
[2021-02-07 16:19] LABS: Basophils # (Auto) 0.1 K/mm3 (0.0-0.1); Basophils % (Auto) 0.5 % (0.0-1.8); Eosinophils # (Auto) 0.1 K/mm3 (0.0-0.4); Eosinophils % (Auto) 0.6 % (0.0-4.3); Hematocrit 39.2 % (35.5-45.6); Hemoglobin 13.4 gm/dl (11.8-15.2); Lymphocytes # (Auto) 3.5 K/mm3 (1.2-5.4); Lymphocytes % (Auto) 33.8 % (13.4-35.0); Mean Corpuscular HGB Conc 34 % (32-34); Mean Corpuscular Volume 93 fl (84-94); Monocytes # (Auto) 0.8 K/mm3 (0.0-0.8); Monocytes % (Auto) 7.3 % (0.0-7.3); Platelet Count 256 K/mm3 (140-440); Red Blood Count 4.23 M/mm3 (3.65-5.03); Red Cell Distribution Width 14.5 % (13.2-15.2)
[2021-02-07 16:25] LABS: BUN/Creatinine Ratio 6; Blood Urea Nitrogen 8 mg/dL (9-20); Calcium 8.8 mg/dL (8.4-10.2); Hemolysis Index 13
--- NOTE | 2021-02-07 16:44 | Emergency Department Report ---
ED Chest Pain HPI - General Chief Complaint: Chest Pain Stated Complaint: CHEST PAIN Time Seen by Provider: 02/07/21 15:22 Source: EMS Mode of arrival: Stretcher Limitations: No Limitations - History of Present Illness Initial Comments: Patient is a 40-year-old F M[place] male previously healthy who is presenting with some central chest pain. Patient states that approximately 4 hours ago he started having central pain which hurts when he moves when he takes a deep breath. States he feels some slight shortness of breath. Patient states he does not have a cough currently but had a cough for the last 2 weeks which is now resolved. He denies fevers chills nausea vomiting diarrhea or diaphoresis at this time. Patient states pain has been constant since it started. Severity scale (0 -10): 0 - Related Data Previous Rx's Medication Instructions Recorded Last Taken Type Albuterol Mdi (or & Nicu Only) 2 puff IH QID PRN #8.5 gram 10/12/20 Unknown Rx [ProAir HFA Inhaler] Fluticasone/Salmeterol [Advair 1 puff IH BID #1 disk.w.dev 10/12/20 Unknown Rx Diskus 250-50 mcg] Fluticasone/Salmeterol [Advair 1 puff IH BID 30 Days #1 disk.w.dev 10/12/20 Unknown Rx Diskus 500-50 mcg] Hydralazine HCl 50 mg PO TID #90 tablet 10/12/20 Unknown Rx NIFEdipine XL [Procardia Xl] 30 mg PO Q12HR #60 tablet 10/12/20 Unknown Rx Nicotine [Habitrol] 14 mg TD QDAY #30 patch 10/12/20 Unknown Rx guaiFENesin [Robitussin] 200 mg PO Q4H PRN 10 Days #1 bottle 10/12/20 Unknown Rx lisinopriL [Zestril TAB] 40 mg PO BID #60 tablet 10/12/20 Unknown Rx predniSONE 6 tab PO DAILY #40 tablet 10/12/20 Unknown Rx Famotidine [Pepcid] 40 mg PO QHS #10 tablet 02/07/21 Unknown Rx predniSONE [Deltasone] 20 mg PO QDAY #5 tab 02/07/21 Unknown Rx Allergies Allergy/AdvReac Type Severity Reaction Status Date / Time No Known Allergies Allergy Unverified 10/02/20 23:18 Heart Score - HEART Score History: Slightly suspicious EKG: Normal Age: < 45 Risk factors: No known risk factors Troponin: < normal limit HEART Score: 0 - EKG Read Time Time EKG Completed: 16:16 EKG Read Time: 16:18 ED Review of Systems ROS: Stated complaint: CHEST PAIN Other details as noted in HPI Comment: All other systems reviewed and negative ED Past Medical Hx - Past Medical History Hx Hypertension: Yes Hx Asthma: Yes Additional medical history: Obesity - Surgical History Hx Pacemaker: No - Social History Smoking Status: Former Smoker - Medications Home Medications: Home Medications Medication Instructions Recorded Confirmed Last Taken Type Albuterol Mdi (or & Nicu Only) 2 puff IH QID PRN #8.5 gram 10/12/20 Unknown Rx [ProAir HFA Inhaler] Fluticasone/Salmeterol [Advair 1 puff IH BID #1 disk.w.dev 10/12/20 Unknown Rx Diskus 250-50 mcg] Fluticasone/Salmeterol [Advair 1 puff IH BID 30 Days #1 disk.w.dev 10/12/20 Unknown Rx Diskus 500-50 mcg] Hydralazine HCl 50 mg PO TID #90 tablet 10/12/20 Unknown Rx NIFEdipine XL [Procardia Xl] 30 mg PO Q12HR #60 tablet 10/12/20 Unknown Rx Nicotine [Habitrol] 14 mg TD QDAY #30 patch 10/12/20 Unknown Rx guaiFENesin [Robitussin] 200 mg PO Q4H PRN 10 Days #1 bottle 10/12/20 Unknown Rx lisinopriL [Zestril TAB] 40 mg PO BID #60 tablet 10/12/20 Unknown Rx predniSONE 6 tab PO DAILY #40 tablet 10/12/20 Unknown Rx Famotidine [Pepcid] 40 mg PO QHS #10 tablet 02/07/21 Unknown Rx predniSONE [Deltasone] 20 mg PO QDAY #5 tab 02/07/21 Unknown Rx ED Physical Exam - General Limitations: No Limitations General appearance: alert, in no apparent distress - Head Head exam: Present: atraumatic, normocephalic - Eye Eye exam: Present: normal appearance - ENT ENT exam: Present: mucous membranes moist - Neck Neck exam: Present: normal inspection - Respiratory Respiratory exam: Present: normal lung sounds bilaterally. Absent: respiratory distress, wheezes, rales, rhonchi - Cardiovascular Cardiovascular Exam: Present: regular rate, normal rhythm, normal heart sounds. Absent: systolic murmur, diastolic murmur, rubs, gallop - GI/Abdominal GI/Abdominal exam: Present: soft, normal bowel sounds. Absent: distended, tenderness, guarding, rebound - Rectal Rectal exam: Present: deferred - Extremities Exam Extremities exam: Present: normal inspection - Back Exam Back exam: Present: normal inspection - Neurological Exam Neurological exam: Present: alert, oriented X3 - Psychiatric Psychiatric exam: Present: normal affect, normal mood - Skin Skin exam: Present: warm, dry, intact, normal color. Absent: rash ED Medical Decision Making - Lab Data Result diagrams: 02/07/21 15:46 02/07/21 15:46 Lab Results 02/07/21 02/07/21 02/07/21 Range/Units 15:46 15:46 15:46 WBC 10.3 (4.5-11.0) K/mm3 RBC 4.23 (3.65-5.03) M/mm3 Hgb 13.4 (11.8-15.2) gm/dl Hct 39.2 (35.5-45.6) % MCV 93 (84-94) fl MCH 32 (28-32) pg MCHC 34 (32-34) % RDW 14.5 (13.2-15.2) % Plt Count 256 (140-440) K/mm3 Lymph % (Auto) 33.8 (13.4-35.0) % [place] % (Auto) 7.3 (0.0-7.3) % Eos % (Auto) 0.6 (0.0-4.3) % Baso % (Auto) 0.5 (0.0-1.8) % Lymph # (Auto) 3.5 (1.2-5.4) K/mm3 [place] # (Auto) 0.8 (0.0-0.8) K/mm3 Eos # (Auto) 0.1 (0.0-0.4) K/mm3 Baso # (Auto) 0.1 (0.0-0.1) K/mm3 Seg Neutrophils % 57.8 (40.0-70.0) % Seg Neutrophils # 5.9 (1.8-7.7) K/mm3 D-Dimer 232.81 (0-234) ng/mlDDU Sodium 138 (137-145) mmol/L Potassium 3.5 L (3.6-5.0) mmol/L Chloride 104.2 (98-107) mmol/L Carbon Dioxide 20 L (22-30) mmol/L Anion Gap 17 mmol/L BUN 8 L (9-20) mg/dL Creatinine 1.3 (0.8-1.3) mg/dL Estimated GFR > 60 ml/min BUN/Creatinine Ratio 6 % Glucose 92 (75-100) mg/dL Calcium 8.8 (8.4-10.2) mg/dL - EKG Data -: EKG Interpreted by Hi EKG shows normal: sinus rhythm, axis, intervals, QRS complexes Rate: normal - EKG Data Interpretation: other 02/07/21 16:47 Inverted T waves in the lateral leads. This finding was present in previous EKGs - Radiology Data Chest x-ray shows no acute process - Medical Decision Making After requesting some crackers the patient states his pain is now resolved. Is most worried about a PE given the patient is recent illness with pneumonia cough and congestion. Patient did test negative for COVID-19 twice. PE D-dimer was negative. Patient likely with some pleurisy or could have even been some epigastric GERD type symptoms. Critical care attestation.: If time is entered above; I have spent that time in minutes in the direct care of this critically ill patient, excluding procedure time. ED Disposition Clinical Impression: Atypical chest pain, Pleurisy Disposition: DC- TO HOME OR SELFCARE Is pt being admited?: No Does the pt Need Aspirin: No Condition: Stable Instructions: Nonspecific Chest Pain, Adult, Pleurisy Referrals: PRIMARY CARE, [Primary Care Provider] - 3-5 Days Time of Disposition: 16:52
[2021-02-07 16:51] VITALS: BP 156/103
--- NOTE | 2021-02-07 17:14 | XRay Report ---
CHEST 1 VIEW 1549 INDICATION / CLINICAL INFORMATION: chest pain COMPARISON: 10/05/2020 FINDINGS: SUPPORT DEVICES: None HEART / MEDIASTINUM: No significant abnormality. LUNGS / PLEURA: Previous extensive bilateral pulmonary infiltrates have resolved. No obvious acute in filtrates are seen at this time. No pleural effusions are noted. No pneumothorax. ADDITIONAL FINDINGS: No significant additional findings. IMPRESSION: No significant acute abnormality Signer Name: Addy Willams MD Signed: 02/07/2021 5:10 PM Workstation Name: [id number]
--- NOTE | 2021-02-08 11:52 | Electrocardiograph Report ---
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
== END 2021-02-07 17:03 | disposition home or self-care (01) ==
LOC: ED 12:59
DX: R07.89 Other chest pain (principal); R09.1 Pleurisy; I10 Essential (primary) hypertension; J45.909 Unspecified asthma, uncomplicated; Z87.891 Personal history of nicotine dependence
CPT/HCPCS: 36415; 71045; 80048; 85025; 85379; 93005; 96374; 96375; 99284; J1885